=== PATIENT | female | born 1945 | race Caucasian/White ===

== ENCOUNTER → 2017-04-11 09:50 | Outpatient (CLI) | payer MEDICARE, OTHER, SELFPAY ==
[2017-04-12 16:31] LABS: Bacteria 0 SEEN /hpf (None Seen); Mucous, Urine 0 SEEN /hpf (<or=2+); Red Blood Cells-Urine 0 SEEN /hpf (0-5)
[2017-04-12 16:45] LABS: Color, Urine Yellow (Yellow); Glucose, Dipstick Normal (Normal); Ketone-Dipstick Negative (Negative); Leukocyte Esterase-Dipstick 500 /ul (Negative); Nitrite-Dipstick Positive (Negative); Occult Blood-Urine 10 /ul (Negative); Protein-Dipstick Negative (Negative); Specific Gravity, Urine 1.005 (1.002-1.030); Urine Bilirubin Dipstick Negative (Negative); Urine Clarity Clear (Clear); Urine Urobilinogen Normal (Normal)
[2017-04-12 17:03] LABS: Squamous Epithelial Cells - UA 0-5 SEEN /hpf (5-10); White Blood Cells 10-25 SEEN /hpf (0-5)
== END ==
PROVIDERS: Family Provider Family Medicine; PCP Family Medicine; Visit Provider Physician Assistant
DX: N39.0 Urinary tract infection, site not specified (principal); R30.0 Dysuria
CPT/HCPCS: 81001; 87086; 87088; 87186

== ENCOUNTER → 2018-04-19 06:17 | Outpatient (CLI) | payer MEDICARE, OTHER, SELFPAY ==
--- NOTE | 2018-04-19 09:42 | STRESSREP_ITS ---
Stress Test Report Date: 04-19-18 Procedure: Exercise tolerance test/imaging study Indications: chest pain; shortness of breath/dyspnea Consent: Per the patient Procedure: The patient exercised on a Cristóbal protocol for 6 minutes completing Stage II achieving a peak heart rate of 150 bpm (100 % predicted maximal heart rate) with a peak blood pressure 152/68 mmHg and a peak MET capacity of 7 METs. The baseline ECG demonstrated normal sinus rhythm . The peak exercise ECG demonstrated somatic/motion artifact with no obvious ECG changes . There were occasional PACs and PVCs during exercise . The functional capacity was considered average . There was no complaint of chest discomfort during exercise or recovery. The examination was discontinued secondary to dyspnea . Impression: 1. Technically adequate (percent predicted maximal heart rate greater than 85%) exercise tolerance test 2. Peak exercise ECG demonstrated somatic/motion artifact with no obvious ECG changes 3. There were occasional PACs and PVCs during exercise 4. Nuclear images pending Myocardial perfusion imaging study: Technique: The patient was injected with 10 mCi of technetium 99m Cardiolite and subsequently rest SPECT Cardiolite nuclear imaging was obtained in the horizontal long, vertical long, and short axis views. The patient exercised on a Rcistóbal protocol for 6 minutes completing Stage II achieving a peak heart rate of 150 bpm (100 % predicted maximal heart rate) with a peak blood pressure 152/68 mmHg and a peak MET capacity of 7 METs. The patient was injected with 30 mCi of technetium 99m Cardiolite and subsequently stress SPECT Cardiolite nuclear imaging was obtained in the horizontal long, vertical long, and short axis views. A gated Cardiolite study at peak stress was obtained. Interpretation: Rest and stress SPECT Cardiolite nuclear imaging status post realignment, normalization, and attenuation correction, demonstrates the appearance of relative uniform tracer uptake and myocardial perfusion appearing within normal limits. There is end systolic thickening and brightening. The gated Cardiolite study demonstrates myocardial thickening and inward wall motion. The reported LVEF is 79 %. Impression: 1. Rest and stress SPECT Cardiolite nuclear imaging demonstrate relative uniform tracer uptake and myocardial perfusion appearing within normal limits. 2. The gated Cardiolite study reports an LVEF of 79 %. This note was generated with [employer] software. It may contain incorrect words, spelling, and punctuation that were not noted in checking the note before signing.
== END ==
PROVIDERS: Family Provider Family Medicine; PCP Family Medicine; Referring Provider Family Medicine; Visit Provider Family Medicine
DX: R07.89 Other chest pain (principal)
CPT/HCPCS: 78452; 93017; A9500; A4216

== ENCOUNTER → 2018-04-22 12:41 | Outpatient (CLI) | payer MEDICARE, OTHER, SELFPAY ==
--- NOTE | 2018-04-22 12:44 | ECHOD_ITS ---
Reason For Study: Amaurosis fugax Procedure This was a 2D Doppler, Color Flow transthoracic echocardiogram. Myocardial strain analysis was performed in this exam to aid in the assessment of cardiac function. Exam performed in department. Left Ventricle Normal size and thickness. The estimated ejection fraction is 65 %. Stage 1 diastolic dysfunction. No regional wall motion abnormalities noted. Right Ventricle Normal size and thickness. Normal systolic function. Atria Normal left atrium. Normal right atrium. Normal atrial septum. Bubble contrast study negative for right to left interatrial shunt. Mitral Valve Mild diffuse mitral valve thickening. Mild (1+) posteriorly directed mitral valve insufficiency. Tricuspid Valve Normal tricuspid valve. Trivial tricuspid valve insufficiency. Unable to estimate RV systolic pressure/pulmonary artery pressure due to technically difficult study. Aortic Valve Trisinus/trileaflet aortic valve. Mild diffuse aortic valve thickening. Trivial aortic valve insufficiency. Pulmonic Valve Normal pulmonic valve. Trivial pulmonic valve insufficiency. Great Vessels Normal aortic root. Normal arch. Normal inferior vena cava. Inferior vena cava collapse with sniff. Pericardium/Pleural Trivial pericardial effusion. Circumferential effusion. There are no echocardiographic indications of cardiac tamponade. Medication 22 gauge I.V. with prn adaptor inserted into right arm. Performed a rapid injection of agitated mix of 9 cc saline and 1cc air to assess for atrial septal defect. MMode/2D Measurements & Calculations LVIDd: 4.1 cm IVSd: 0.95 cm Ao root diam: 3.0 cm LVIDs: 2.5 cm LVPWd: 0.94 cm RVDd: 2.3 cm FS: 39.7 % LAV(MOD-bp): 44.0 ml EDV(MOD-sp4): 63.2 ml EDV(MOD-sp2): 61.2 ml LAV(MOD-bp) Indexed: 26.3 ml/m2 ESV(MOD-sp4): 18.1 ml EF(MOD-sp2): 68.9 % LAV(MOD-sp2): 50.0 ml EF(MOD-sp4): 71.3 % LAV(MOD-sp4): 34.6 ml SV(MOD-sp4): 45.1 ml SV(MOD-sp2): 42.2 ml LA A4 area: 14.4 cm2 LA dimension(2D): 3.0 cm RA A4 area: 11.5 cm2 Doppler Measurements & Calculations MV E max eulalio: 54.4 cm/sec Lat Peak E' Eulalio: 5.0 cm/sec Med Peak E' Eulalio: 4.1 cm/sec MV A max eulalio: 61.2 cm/sec E/E' lat: 10.8 E/E' med: 13.4 MV E/A: 0.89 Ao V2 max: 124.9 cm/sec AI max eulalio: 386.7 cm/sec LV V1 max: 118.5 cm/sec Ao max P.2 mmHg AI max P.8 mmHg LV V1 max P.6 mmHg AI dec slope: 250.7 cm/sec2 AI P1/2t: 451.8 msec PA V2 max: 70.6 cm/sec Interpretation Summary The estimated ejection fraction is 65 %. Stage 1 diastolic dysfunction. Bubble contrast study negative for right to left interatrial shunt. Mild (1+) posteriorly directed mitral valve insufficiency. Trivial tricuspid valve insufficiency. Unable to estimate RV systolic pressure/pulmonary artery pressure due to technically difficult study. Trivial aortic valve insufficiency. Trivial to small circumferential pericardial effusion. There are no echocardiographic indications of cardiac tamponade. D/w Dr Kyle on 04/22/2018 at 1425. Recommend clinical correlation and repeat echo in 1 month. There is no comparison study available. Ordering Physician: Ander Kyle Referring Physician: Ander Kyle Performed By: Miranda Bob RDCS
--- NOTE | 2018-04-22 13:54 | CDU_ITS ---
Reason For Study: Amaurosis fugax Rt. Velocities/BP Lt. Velocities/BP Prox CCA 72.1/21.7 cm/sec. Prox CCA 85.0/27.6 cm/sec. Mid CCA 73.9/22.3 cm/sec. Mid CCA 77.4/25.8 cm/sec. Dist CCA 57.5/15.2 cm/sec. Dist CCA 74.5/22.3 cm/sec. Prox ICA 57.5/18.8 cm/sec. Prox ICA 49.7/15.9 cm/sec. Mid ICA 70.4/28.1 cm/sec. Mid ICA 78.5/28.3 cm/sec. Dist ICA 79.2/28.1 cm/sec. Dist ICA 48.5/17.0 cm/sec. Rt. ICA/CCA = 1.1. Lt. ICA/CCA = 1.0. Prox ECA 75.0/15.8 cm/sec. Prox ECA 74.5/22.3 cm/sec. Rt. Vert. 28.3/10.2 cm/sec. Lt. Vert. 39.7/11.0 cm/sec. Right Extracranial There is intimal thickening but no significant atherosclerotic plaque noted in the right common carotid artery. There is intimal thickening but no significant atherosclerotic plaque noted in the right internal carotid artery. There is no significant atherosclerotic plaque noted in the right external carotid artery. Antegrade flow is noted in the right vertebral artery. Left Extracranial There is intimal thickening but no significant atherosclerotic plaque noted in the left common carotid artery. There is intimal thickening but no significant atherosclerotic plaque noted in the left internal carotid artery. There is no significant atherosclerotic plaque noted in the left external carotid artery. Antegrade flow is noted in the left vertebral artery. Procedure Carotid Duplex [id number]. Exam performed in department. Interpretation Summary No significant atherosclerotic plaque or stenosis noted in the internal carotid arteries bilaterally. Flow within the vertebral arteries is antegrade bilaterally. Ordering Physician: Ander Kyle Referring Physician: Nori Hope M.D. Performed By: Dinah Kidd RVT
== END ==
PROVIDERS: Family Provider Family Medicine; PCP Family Medicine; Referring Provider Ophthalmology; Visit Provider Ophthalmology
DX: G45.3 Amaurosis fugax (principal)
CPT/HCPCS: 93306; 93880; A4216

== ENCOUNTER → 2018-04-23 08:57 | Outpatient (CLI) | payer MEDICARE, OTHER, SELFPAY ==
[2017-04-11 09:03] VITALS: BMI 27.6
[2018-04-23 09:46] LABS: Absolute Lymphocyte Count 1.34 X10^3/ul (0.83-4.51); Absolute Neutrophil Count 4.4 X10^3/uL (2.0-7.7); Basophil# 0.04 X10^3/uL; Basophil% 0.6 % (0-1); Eosinophil# 0.19 X10^3/uL; Eosinophils% 2.9 % (0-5); Hematocrit 45.3 % (37-47); Hemoglobin 14.4 g/dl (12.0-15.0); Lymphocyte # 1.34 X10^3/ul (4.0); Lymphocyte % 20.8 % (19-41); Mean Corp Hgb Conc 31.8 g/gl (32-36); Mean Corpuscular Hgb 29.4 pg (27.0-32.0); Mean Corpuscular Volume 92.4 fL (81-99); Mean Platelet Vol. 10.4 fl (6.2-12.0); Monocyte# 0.48 X10^3/uL; Monocyte% 7.4 % (0-10); Neutrophil % 68.3 % (47-70); Platelet Count 236 K/mm3 (150-450); RBC Distribution Width CV 13.7 % (11.6-14.6); RBC Distribution Width SD 46.4 fl (35.1-43.9); White Blood Count 6.5 K/mm3 (4.4-11.0)
[2018-04-23 09:55] LABS: POSITIVE COUNT NO; POSITIVE DIFFERENTIAL NO; POSITIVE MORPHOLOGY NO
[2018-04-23 10:05] LABS: ALB/GLOB Ratio 1.3 RATIO (0.9-2.4); AST(SGOT) 21 U/L (15-37); Alanine Aminotransfer ALT/SGPT 21 U/L (13-56); Alkaline Phosphatase 78 U/L (45-117); Anion Gap 6 (5-15); BUN 12 mg/dL (7-18); BUN/Creat Ratio 14.2 RATIO (10-20); Calcium,Total 8.4 mg/dL (8.5-10.1); Chloride 110 mmol/L (98-107); Cholesterol 216 mg/dL (200); Creatinine, Serum 0.85 mg/dL (0.55-1.02); EST Glomerular Filtration Rate 70 mL/min (>60); Est Glom Filt Rate - Afr Amer 85 mL/min (>60); Glucose 90 mg/dL (74-106); High Density Lipoprotein 67 mg/dL; Potassium 4.2 mmol/L (3.5-5.1); Sodium Level 142 mmol/L (136-145); Thyroid Stim Hormone (TSH) 2.48 uIU/mL (0.358-3.74); Triglycerides 74 mg/dL; Very Low Density Lipoprotein 15 mg/dL (5-40)
== END ==
PROVIDERS: Family Provider Family Medicine; PCP Family Medicine; Referring Provider Family Medicine; Visit Provider Family Medicine
DX: R07.89 Other chest pain (principal)
CPT/HCPCS: 36415; 80053; 80061; 84443; 85025

== ENCOUNTER 2018-05-05 06:47 | Day surgery (SDC) | payer MEDICARE, OTHER, SELFPAY ==
[2018-05-03 13:14] VITALS: BMI 30.7
--- NOTE | 2018-05-03 14:40 | RAD_ITS ---
STUDY: X-RAY CHEST REASON FOR EXAM: Female, 73 years old. Chest pain TECHNIQUE: PA and lateral views of the chest. COMPARISON: None. FINDINGS: Lungs are underexpanded. There is a blunted appearance of the right cardio phrenic angle. Is mild cardiac enlargement. Normal mediastinum and sameer. Normal visualized pulmonary arteries. Normal visualized aortic arch and descending thoracic aorta. Normal visualized thoracic spine. Normal visualized ribs, clavicles, and shoulders. There is no demonstrated abnormality of the visualized soft tissue structures of the upper abdomen. RAD/Chest PA and Lateral IMPRESSION: Blunted partially opacified right cardiophrenic angle. This may represent focal infiltrate and/or prominent cardiac fat pad. Comparison is not available at this time. Recommend clarification with CT scan of the chest if appropriate. Electronically Signed: Yumi Jhaveri MD at 15:28 EDT Tel , Service support ,
[2018-05-03 15:58] LABS: Erythrocyte Sedimentation Rate 3 mm/hr (0-30)
[2018-05-04 09:13] VITALS: BMI 30.7
--- NOTE | 2018-05-05 09:19 | CL.D_ITS ---
Patient Name: HAYDER PETERS Study Date: 05/05/2018 Performing: Parker Man MD Ht: 59.84 inches 152 cm : 1945 Wt: 156.53 lbs 71 kg Age: 73 Gender: female BSA: 1.68 PROCEDURE(S) PERFORMED VP68-LQJ/COR/LV CLINICAL PROFILE AND INDICATIONS Indications: Suspected CAD Heart Failure: None Stress/Imaging Stress Test w/SPECT MPI: Yes Result: NegativeStress Test with SPECT MPI: Negative Angina Classification Anginal Classification w/in 2 Weeks: CCS IV CAD Presentations: Symptom unlikely to be ischemic. CONCLUSIONS Normal coronary arteries Normal LV size, wall motion,and systolic function Elevated Left Ventricular End Diastolic Pressure RECOMMENDATIONS d/c asa, continue PPI and Cardizem. Medical management of trivial pericardial effusion; consider prednisone if atypical recumbent chest p ain returns despite PPI and CCB. Manual sheath removal. DESCRIPTION OF PROCEDURE The patient arrived to the procedure lab. The risks and benefits of the procedure as well as a full d escription of our services here and current unavailability of surgical backup were fully explained to the patient and/or their significant other prior to the catheterization. The Timeout was completed, verifying the correct patient and procedure. The patient's procedural site was prepped and draped in the usual fashion. Local anesthetic was given subcutaneously to right groin region with Lidocaine 2%. Using a modified Seldinger technique, arterial access was obtained via the right femoral artery, a 4 Fr sheath was inserted Left Coronary Artery selective angiography was performed in multiple views us ing a 4 Fr. JL5 catheter. Right Coronary Artery selective angiography was then performed in multiple views using a 4 Fr. 3DRC catheter. Left Ventriculography was performed in ODONNELL projection using a 4 Fr . Pigtail catheter. LV to AO pullback pressures were then recorded.The arterial sheath was pulled and manual compression applied until hemostasis is achieved. CORONARY ANGIOGRAPHY DOMINANCE: Right Dominant LEFT HEART ASSESSMENT Left Ventricular Ejection Fraction: by LV Gram 65 % Normal LV wall motion Normal Left Ventricular systolic function Normal Left Ventricular systolic function LEFT MAIN: Angiographically normal LEFT ANTERIOR DECENDING ARTERY: Angiographically normal CIRCUMFLEX ARTERY: Angiographically normal RIGHT CORONARY ARTERY: Angiographically normal COMPLICATIONS No Complications PROCEDURE MEDICATIONS Oxygen: 2 L/min via nasal cannula SUMMARY OF HEMODYNAMIC DATA Time AIR REST ECG 07:18:56 AO 137/65 (97) SA 09:02:35 LV 140/-2, 19 09:07:32 LV 154/-15, 22 09:07:38 LVp 162/-13, 26 09:07:43 AOp 141/70 (104) 09:07:48 Signed By Parker Man MD On 05/05/2018 9:17:51 AM Parker Man MD
== END 2018-05-05 13:25 | disposition home or self-care (01) ==
LOC: CLSP 06:48
PROVIDERS: Family Provider Family Medicine; PCP Family Medicine; Referring Provider Internal Medicine Cardiovascular Disease; Visit Provider Internal Medicine Cardiovascular Disease
DX: R07.9 Chest pain, unspecified (principal); I34.0 Nonrheumatic mitral (valve) insufficiency; I31.3 Pericardial effusion (noninflammatory); R32 Unspecified urinary incontinence; K21.9 Gastro-esophageal reflux disease without esophagitis; Z79.82 Long term (current) use of aspirin; Z79.899 Other long term (current) drug therapy
CPT/HCPCS: 36415; 71046; 85652; 93458; J7040; C1769; C1894; Q9967

== ENCOUNTER → 2018-05-12 08:45 | Outpatient (CLI) | payer MEDICARE, OTHER, SELFPAY ==
[2018-05-04 09:13] VITALS: BMI 30.7
[2018-05-12 10:04] LABS: AST(SGOT) 17 U/L (15-37); Alanine Aminotransfer ALT/SGPT 19 U/L (13-56); Albumin, Serum 3.6 g/dL (3.2-5.0); Alkaline Phosphatase 74 U/L (45-117); Bilirubin, Direct 0.13 mg/dL (0.00-0.30); Cholesterol 195 mg/dL (200); Globulin 2.8 g/dL (2.2-4.2); High Density Lipoprotein 60 mg/dL; Protein, Total 6.4 g/dL (6.4-8.2); Triglycerides 87 mg/dL; Very Low Density Lipoprotein 17 mg/dL (5-40)
== END ==
PROVIDERS: Family Provider Family Medicine; PCP Family Medicine; Referring Provider Internal Medicine Cardiovascular Disease; Visit Provider Internal Medicine Cardiovascular Disease
DX: Z13.220 Encounter for screening for lipoid disorders (principal)
CPT/HCPCS: 36415; 80061; 80076

== ENCOUNTER → 2018-05-25 17:42 | Outpatient (CLI) | payer MEDICARE, OTHER, SELFPAY ==
[2018-05-03 13:14] VITALS: BMI 30.7
[2018-05-04 09:13] VITALS: BMI 30.7
--- NOTE | 2018-05-25 17:44 | MRI_ITS ---
HISTORY: visual disturbances, family h/o brain aneurysm with rupture. New angio disease EXAMINATION: MRA Head W/O Contrast TECHNIQUE: Routine algaaciq of Granado/brain 3D time of flight MR angiogram protocol was performed without gadolinium. 3D reconstructions were reviewed. IV Contrast dosage and agent: None. COMPARISON: None FINDINGS: ICAs: No significant stenosis at the intracranial/visualized segments. ACAs: No significant stenosis at the visualized segments. ACOM is present. Anatomic variant dominant left and hypoplastic right A1 segments. MCAs: No significant stenosis at the visualized segments. 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 On the left, the P1 segment provides dominant supply. No significant stenosis at the visualized segments. BASILAR ARTERY: No significant stenosis. VERTEBRAL ARTERIES: No significant stenosis at the intradural/visualized segments. No evidence of intracranial aneurysm or vascular malformation. MRI/MRA Head ONLY without Contrast IMPRESSION: No aneurysm or concerning findings. Incidental anatomic variations described above. at 2211 Reported and signed by: Zeus Carter MD Electronically Signed: Zeus Carter, at 22:10 EDT Tel , Service support ,
== END ==
PROVIDERS: Family Provider Family Medicine; PCP Family Medicine; Referring Provider Internal Medicine Cardiovascular Disease; Visit Provider Internal Medicine Cardiovascular Disease
DX: H53.121 Transient visual loss, right eye (principal); I31.3 Pericardial effusion (noninflammatory); I34.0 Nonrheumatic mitral (valve) insufficiency; R93.1 Abnormal findings on diagnostic imaging of heart and coronary circulation
CPT/HCPCS: 70544

== ENCOUNTER → 2018-06-03 14:51 | Outpatient (CLI) | payer MEDICARE, OTHER, SELFPAY ==
[2018-05-04 09:13] VITALS: BMI 30.7
--- NOTE | 2018-06-03 14:53 | BI_ITS ---
MAMMOGRAPHY - BILATERAL SCREENING 3-D TOMOSYNTHESIS REASON FOR EXAM: Female, 73 years old. Bilateral Screening 3-D tomosynthesis PERTINENT HISTORY: No significant family history. TECHNIQUE: 2-D mammograms and 3-D Tomosynthesis of the breast (s) were performed. CAD was performed. COMPARISON: January 28, 2017. FINDINGS: The breast composition is composed of scattered fibroglandular density. Scattered benign calcifications are seen. No dense spiculated masses or suspicious microcalcifications are identified. No architectural distortion is identified. There is no skin thickening or retraction. There has been no significant change since the prior study. BI/SCREENING MAMM (CAD), BILAT IMPRESSION: No mammographic signs of malignancy. Routine yearly mammograms recommended. ASSESSMENT CATEGORY: BIRADS Category 1: Negative. A letter regarding these results will be sent to the patient by the facility within 30 days. FOLLOW UP RECOMMENDATION: Yearly follow up mammogram recommended. (A) Approximately 10% of breast cancers are not detected by mammography. A normal mammogram should not delay biopsy of a clinically suspicious abnormality. Electronically Signed: Gilberto Scales MD at 10:43 EDT , Service support ,
== END ==
PROVIDERS: Family Provider Family Medicine; PCP Family Medicine; Referring Provider Family Medicine; Visit Provider Family Medicine
DX: Z12.31 Encounter for screening mammogram for malignant neoplasm of breast (principal)
CPT/HCPCS: 77063; 77067

== ENCOUNTER → 2018-09-05 17:08 | Outpatient (CLI) | payer MEDICARE, OTHER, SELFPAY ==
[2018-05-04 09:13] VITALS: BMI 30.7
[2018-09-05 17:23] LABS: Hematocrit 38.9 % (37-47); Hemoglobin 12.8 g/dL (12.0-15.0); Mean Corp Hgb Conc 32.9 g/dL (32-36); Mean Corpuscular Hgb 30.7 pg (27.0-32.0); Mean Corpuscular Volume 93.3 fL (81-99); Mean Platelet Vol. 9.6 fl (6.2-12.0); Platelet Count 197 K/mm3 (150-450); RBC Distribution Width CV 12.8 % (11.6-14.6); Red Blood Count 4.17 M/mm3 (4.2-5.4); White Blood Count 7.2 K/mm3 (4.4-11.0)
[2018-09-05 17:32] LABS: Erythrocyte Sedimentation Rate 4 mm/hr (0-30)
[2018-09-05 18:20] LABS: CRP < 2.90 mg/L (0.0-3.0)
== END ==
PROVIDERS: Family Provider Family Medicine; PCP Family Medicine; Referring Provider Ophthalmology; Visit Provider Ophthalmology
DX: R51 Headache (principal)
CPT/HCPCS: 36415; 85027; 85652; 86140

== ENCOUNTER → 2018-11-11 14:33 | Outpatient (CLI) | payer MEDICARE, OTHER, SELFPAY ==
[2018-05-04 09:13] VITALS: BMI 30.7
[2018-11-11 15:25] LABS: Absolute Lymphocyte Count 1.66 X10^3/uL (0.83-4.51); Absolute Neutrophil Count 4.8 X10^3/uL (2.0-7.7); Basophil# 0.07 X10^3/uL; Eosinophils% 2.8 % (0-5); Hematocrit 40.3 % (37-47); Hemoglobin 12.9 g/dL (12.0-15.0); Lymphocyte # 1.66 X10^3/ul (4.0); Lymphocyte % 23.1 % (19-41); Mean Corpuscular Hgb 29.5 pg (27.0-32.0); Mean Platelet Vol. 10.3 fl (6.2-12.0); Monocyte# 0.46 X10^3/uL; Monocyte% 6.4 % (0-10); NRBC Flagged by Analyzer 0 % (0-5); Neutrophil % 66.6 % (47-70); Platelet Count 198 K/mm3 (150-450); RBC Distribution Width SD 44.1 fl (35.1-43.9); Red Blood Count 4.38 M/mm3 (4.2-5.4); White Blood Count 7.2 K/mm3 (4.4-11.0)
[2018-11-11 15:59] LABS: Erythrocyte Sedimentation Rate 9 mm/hr (0-30)
[2018-11-11 16:09] LABS: CRP < 2.90 mg/L (0.0-3.0)
== END ==
PROVIDERS: Family Provider Family Medicine; PCP Family Medicine; Referring Provider Ophthalmology; Visit Provider Ophthalmology
DX: R51 Headache (principal)
CPT/HCPCS: 36415; 85025; 85652; 86140

== ENCOUNTER → 2018-12-08 13:20 | Outpatient (CLI) | payer MEDICARE, OTHER, SELFPAY ==
[2018-11-28 15:41] VITALS: BMI 31.4
--- NOTE | 2018-12-08 13:20 | TEM_PTH ---
PATIENT: HAYDER PETERS LOC: [facility] U#:[id number] AGE/SX: 79/F ROOM: RE12/08/[address]: Dr. Ander Kyle MD : 1945 BED: DIS: SPEC #: [id number] RECD: 12/08/18 17:43 STATUS: BRIDGER RERitchie #: [id number] ELSY: 12/08/18 13:[address]: Ander Kyle DEPT: SURGICAL PATHOLOGY RECD BY: Des Mayes ENTERED: 12/09/18 08:27 SP TYPE: TEMPORAL OTHR DR: Dr. 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 No evidence of arteritis. See comment. AM:yarelis 12/12/18 COMMENT Elastin stain with matched control supports the above diagnosis. MICROSCOPIC DESCRIPTION Slides are reviewed. GROSS DESCRIPTION Received in fixative is one container labeled with the patient's name and designated temporal artery biopsy, right. The specimen consists of a tubular piece of bautista soft tissue measuring 2 cm in length and 0.1 cm in diameter. The entire specimen is submitted in one cassette. It will be serially sectioned at the time of embedding. / SJ:yarelis 12/09/18 TC:5 CPT: 22379, 87312
== END ==
PROVIDERS: Family Provider Family Medicine; PCP Family Medicine; Referring Provider Ophthalmology; Visit Provider Ophthalmology
DX: R51 Headache (principal)
CPT/HCPCS: 88305; 88313

== ENCOUNTER → 2018-12-19 14:58 | Outpatient (CLI) | payer MEDICARE, OTHER, SELFPAY ==
[2018-11-28 15:41] VITALS: BMI 31.4
--- NOTE | 2018-12-19 14:59 | ECHOD_ITS ---
Reason For Study: CHEST PAIN Procedure This was a 2D Doppler, Color Flow transthoracic echocardiogram. Exam performed in department. Left Ventricle Normal size and thickness. The estimated ejection fraction is 65 %. Stage 2 diastolic dysfunction. Septal motion consistent with IVCD. No regional wall motion abnormalities noted. Right Ventricle Normal size and thickness. Normal systolic function. Atria Normal left atrium. Normal right atrium. Normal atrial septum. Mitral Valve Mild diffuse mitral valve thickening. Mild (1+) posteriorly directed mitral valve insufficiency. Tricuspid Valve Normal tricuspid valve. Mild (1+) tricuspid valve insufficiency. Right ventricular systolic pressure estimated to be 30 mmHg. Aortic Valve Trisinus/trileaflet aortic valve. Mild diffuse aortic valve thickening. Mild (1+) aortic valve insufficiency. Pulmonic Valve Normal pulmonic valve. Great Vessels Normal aortic root. Normal arch. Normal inferior vena cava. Inferior vena cava collapse with sniff. Pericardium/Pleural Trivial pericardial effusion. There are no echocardiographic indications of cardiac tamponade. Circumferential effusion. MMode/2D Measurements & Calculations LVIDd: 4.4 cm IVSd: 0.85 cm Ao root diam: 3.0 cm LVIDs: 2.7 cm LVPWd: 0.80 cm RVDd: 2.5 cm FS: 39.1 % LAV(MOD-bp): 47.9 ml LA A4 area: 18.1 cm2 LA dimension(2D): 3.9 cm LAV(MOD-bp) Indexed: 28.6 ml/m2 LAV(MOD-sp2): 47.0 ml LAV(MOD-sp4): 47.7 ml RA A4 area: 10.5 cm2 Time Measurements MV dec time: 0.23 sec Doppler Measurements & Calculations MV E max eulalio: 64.1 cm/sec Lat Peak E' Eulalio: 7.8 cm/sec Med Peak E' Eulalio: 4.8 cm/sec MV A max eulalio: 51.8 cm/sec E/E' lat: 8.2 E/E' med: 13.4 MV E/A: 1.2 Ao V2 max: 123.8 cm/sec AI max eulalio: 408.2 cm/sec LV V1 max: 113.3 cm/sec Ao max P.1 mmHg AI max P.8 mmHg LV V1 max P.1 mmHg AI dec slope: 251.6 cm/sec2 AI P1/2t: 475.1 msec PA V2 max: 67.7 cm/sec PI end-d eulalio: 88.6 cm/sec TR max eulalio: 247.9 cm/sec TR max P.4 mmHg Interpretation Summary The estimated ejection fraction is 65 %. Stage 2 diastolic dysfunction. Mild (1+) posteriorly directed mitral valve insufficiency. Mild (1+) tricuspid valve insufficiency. Right ventricular systolic pressure estimated to be 30 mmHg. Mild (1+) aortic valve insufficiency. Trivial to small pericardial effusion. There are no echocardiographic indications of cardiac tamponade. Circumferential effusion. Compared to echo report dated 05/02/2018, no appreciable changes noted in LV function or pericardial effusion. Ordering Physician: Parker Man Referring Physician: KAYA BOYD Performed By: Isabel Gomez RDCS, RVT
== END ==
PROVIDERS: Family Provider Family Medicine; PCP Family Medicine; Referring Provider Internal Medicine Cardiovascular Disease; Visit Provider Internal Medicine Cardiovascular Disease
DX: R07.9 Chest pain, unspecified (principal); I31.3 Pericardial effusion (noninflammatory); H53.121 Transient visual loss, right eye
CPT/HCPCS: 93306

== ENCOUNTER → 2019-06-14 15:38 | Outpatient (CLI) | payer MEDICARE, OTHER, SELFPAY ==
[2019-06-12 11:23] VITALS: BMI 31.2
[2019-06-14 17:49] LABS: Erythrocyte Sedimentation Rate 8 mm/hr (0-30)
[2019-06-14 18:53] LABS: Anion Gap 6 (5-15); BUN 9 mg/dL (7-18); BUN/Creat Ratio 10.7 RATIO (10-20); CRP < 2.90 mg/L (0.0-3.0); Chloride 110 mmol/L (98-107); Cholesterol 225 mg/dL (200); Creatinine, Serum 0.84 mg/dL (0.55-1.02); EST Glomerular Filtration Rate 70 mL/min (>60); Est Glom Filt Rate - Afr Amer 85 mL/min (>60); Glucose 86 mg/dL (74-106); High Density Lipoprotein 58 mg/dL; Sodium Level 141 mmol/L (136-145); Triglycerides 154 mg/dL; Very Low Density Lipoprotein 31 mg/dL (5-40)
== END ==
PROVIDERS: PCP Family Medicine; Referring Provider Family Medicine; Visit Provider Family Medicine
DX: Z00.00 Encounter for general adult medical examination without abnormal findings (principal); I31.3 Pericardial effusion (noninflammatory)
CPT/HCPCS: 36415; 80048; 80061; 84443; 85652; 86140

== ENCOUNTER → 2019-06-16 11:23 | Outpatient (CLI) | payer MEDICARE, OTHER, SELFPAY ==
[2019-06-12 11:23] VITALS: BMI 31.2
--- NOTE | 2019-06-16 11:27 | BI_ITS ---
MAMMOGRAPHY - BILATERAL SCREENING REASON FOR EXAM: Female, 74 years old. Routine annual screening examination. PERTINENT HISTORY: Non-contributory. TECHNIQUE: Digital bilateral breast zhane (3D mammographic acquisition) in the CC and MLO projections. 2-D mediolateral oblique (MLO) and craniocaudad (CC) views of both breasts were obtained. CAD: Full Field Digital Mammography with Computer Added Detection was performed. COMPARISON: Comparison is made with prior examination dated June 03, 2018 and January 28, 2017. FINDINGS: Breast Composition: There are scattered areas of fibroglandular density. There are no dominant masses or suspicious calcifications. Stable benign-appearing bilateral axillary lymph nodes. No other significant abnormalities are identified. There has been no significant change since the prior study. BI/SCREEN MAMM (CAD) W/ZHANE BILAT IMPRESSION: Stable bilateral screening mammogram. Yearly follow-up mammogram recommended. (A) ASSESSMENT CATEGORY: BIRADS Category 1: Negative. A letter regarding these results will be sent to the patient by the facility within 30 days. Approximately 10% of breast cancers are not detected by mammography. A normal mammogram should not delay biopsy of a clinically suspicious abnormality. [id number] Electronically Signed: Carlos Torres, at 12:47 EDT , Service support ,
== END ==
PROVIDERS: PCP Family Medicine; Referring Provider Family Medicine; Visit Provider Family Medicine
DX: Z12.31 Encounter for screening mammogram for malignant neoplasm of breast (principal)
CPT/HCPCS: 77063; 77067

== ENCOUNTER → 2019-06-30 10:50 | Outpatient (CLI) | payer MEDICARE, OTHER, SELFPAY ==
[2019-06-12 11:23] VITALS: BMI 31.2
--- NOTE | 2019-06-30 10:53 | ECHOD_ITS ---
Reason For Study: H/O PERICARDIAL EFFUSION Procedure This was a 2D Doppler, Color Flow transthoracic echocardiogram. Exam performed in department. Left Ventricle Normal size and thickness. The estimated ejection fraction is 65 %. Stage 1 diastolic dysfunction. Septal motion consistent with IVCD. No regional wall motion abnormalities noted. Right Ventricle Normal size and thickness. Normal systolic function. Atria Normal left atrium. Normal right atrium. Normal atrial septum. Mitral Valve The mitral valve is structurally normal. No prolapse or stenosis seen. Trivial mitral valve insufficiency. Tricuspid Valve Normal tricuspid valve. Unable to estimate RV systolic pressure due to insufficient tricuspid regurgitant envelope. Aortic Valve Trisinus/trileaflet aortic valve. Trivial aortic valve insufficiency. Pulmonic Valve Normal pulmonic valve. Great Vessels Normal aortic root. Normal arch. Normal inferior vena cava. Inferior vena cava collapse with sniff. Pericardium/Pleural Trivial pericardial effusion. Circumferential effusion. There are no echocardiographic indications of cardiac tamponade. MMode/2D Measurements & Calculations LVIDd: 4.4 cm IVSd: 0.83 cm Ao root diam: 3.0 cm LVIDs: 3.0 cm LVPWd: 0.90 cm RVDd: 2.4 cm FS: 31.4 % LAV(MOD-bp): 40.2 ml LA A4 area: 13.4 cm2 LA dimension(2D): 3.0 cm LAV(MOD-bp) Indexed: 23.7 ml/m2 LAV(MOD-sp2): 41.6 ml LAV(MOD-sp4): 32.8 ml RA A4 area: 10.6 cm2 Time Measurements MV dec time: 0.18 sec Doppler Measurements & Calculations MV E max eulalio: 50.4 cm/sec Lat Peak E' Eulalio: 6.7 cm/sec Med Peak E' Eulalio: 5.9 cm/sec MV A max eulalio: 49.1 cm/sec E/E' lat: 7.5 E/E' med: 8.5 MV E/A: 1.0 Ao V2 max: 100.6 cm/sec AI max eulalio: 331.2 cm/sec LV V1 max: 93.2 cm/sec Ao max P.0 mmHg AI max P.9 mmHg LV V1 max P.5 mmHg Ao V2 mean: 75.7 cm/sec AI dec slope: 142.6 cm/sec2 LV V1 mean P.7 mmHg Ao mean P.4 mmHg AI P1/2t: 680.2 msec LV V1 mean: 62.0 cm/sec Ao V2 VTI: 24.4 cm LV V1 VTI: 20.7 cm Interpretation Summary The estimated ejection fraction is 65 %. Stage 1 diastolic dysfunction. Trivial mitral valve insufficiency. Unable to estimate RV systolic pressure due to insufficient tricuspid regurgitant envelope. Trivial aortic valve insufficiency. Trivial pericardial effusion. Circumferential effusion. There are no echocardiographic indications of cardiac tamponade. Compared to echo report dated 12/19/2018, no appreciable changes noted. Ordering Physician: Donovan^Parker^^^ Referring Physician: Nori Hope Performed By: Elis Boone RDCS, RVT
== END ==
PROVIDERS: PCP Family Medicine; Referring Provider Internal Medicine Cardiovascular Disease; Visit Provider Internal Medicine Cardiovascular Disease
DX: I31.3 Pericardial effusion (noninflammatory) (principal); Z98.890 Other specified postprocedural states
CPT/HCPCS: 93306

== ENCOUNTER 2019-09-24 09:56 | Emergency (ER) | payer MEDICARE, OTHER, SELFPAY ==
[2019-06-12 11:23] VITALS: BMI 31.2
[2019-09-24 09:58] VITALS: BP 142/70; PULSE 78; RESP 17; TEMP 36.4; O2SAT 96; BMI 31.4
--- NOTE | 2019-09-24 10:13 | RAD_ITS ---
STUDY: X-RAY - LUMBAR SPINE REASON FOR EXAM: Female, 74 years old. pt fell last night, has chronic back pain TECHNIQUE: 3 view(s) of the lumbar spine were obtained. COMPARISON: None FINDINGS: Normal lumbar lordosis. There is a dextroscoliosis of the lumbar spine. There is a normal alignment of the vertebrae. There is multilevel endplate spondylosis of the lumbar vertebrae. There is multi-level degenerative disc disease with multi-level disc space narrowing. The soft tissue structures are unremarkable. RAD/Lumbar Spine 2 or 3 Views IMPRESSION: Mild dextroscoliosis with a diffuse degenerative disc disease. Electronically Signed: Christopher Schultz MD at 10:48 EDT Tel , Service support ,
--- NOTE | 2019-09-24 10:13 | RAD_ITS ---
STUDY: X-RAY - PELVIS AND RIGHT HIP REASON FOR EXAM: Female, 74 years old. pt fell last night, right leg pain TECHNIQUE: 3 views of the pelvis and hip. COMPARISON: None. FINDINGS: There is a non-specific bowel gas pattern. Normal visualized soft tissue structures. Normal bilateral iliac wings, sacroiliac joints and visualized sacrum. Normal bilateral superior and inferior pubic rami. Normal pubic symphysis. Normal bilateral ischial tuberosities. Normal visualized femoral head. Normal acetabulum. Normal hip joint. RAD/HIP, UNI W/ Pelvis 2-3 Views IMPRESSION: Normal x-ray examination of the pelvis and hip. Electronically Signed: Christopher Schultz MD at 10:47 EDT Tel , Service support ,
--- NOTE | 2019-09-24 10:13 | RAD_ITS ---
STUDY: X-RAY - RIGHT KNEE REASON FOR EXAM: Female, 74 years old. pt fell last night, right leg pain TECHNIQUE: 4 view(s) of the knee. COMPARISON: None. FINDINGS: Normal visualized distal femur. Normal visualized proximal tibia and fibula. Normal proximal tibiofibular articulation. Normal medial femorotibial compartment. Normal lateral femorotibial compartment. Normal patellofemoral articulation. The soft tissue structures are unremarkable. RAD/Knee 4 or More Views IMPRESSION: Normal x-ray examination of the knee. Electronically Signed: Christopher Schultz MD at 10:46 EDT Tel , Service support ,
--- NOTE | 2019-09-24 10:14 | ED.VIS.FALL ---
History of Present Illness Informant: Patient, Significant Other Occurred: Yesterday Mechanism/Context: Same level fall, Trip, Slip Fall from Height (ft): standing Usually ambulates: Without assistance Location: Lower back, right hip, right knee Quality of Pain: Aching Current Severity: Moderate Maximum Severity: Severe Worsened by: movement, walking Relieved by: rest Associated Symptoms: Negative for: Parasthesias, Weakness, Loss of function, Inability to ambulate, Loss of consciousness, Amnesia Length of loss of consciousness: no LOC Narrative: 74-year-old female presents to the emergency department after mechanical fall. This occurred yesterday. She was hiking outside. She stepped down off of a rock and stepped on some loose gravel and lost her balance. She fell on her right side. She landed on her right knee, right hip and on her lower back. She did not hit her head. She did not lose consciousness. She is not on blood thinners. She mostly has pain with ambulation. She does have some pain at rest but it is not severe. She denies any numbness or tingling. Denies any weakness. She has not lost control of her bowel or bladder function. Tetanus Immunization: Unknown Prior similar symptoms: No Recent Illness/Hospitalization: No <Jhon Mcfarland - Last Filed: 09/24/19 10:54> <Ángel Brooks - Last Filed: 09/24/19 12:47> Chief Complaint: Fall Past Medical History Prior records reviewed: Yes Past Medical History: - - Rainouts phenomenon and migraines Surgical History: cholecystectomy Smoking Status: Never smoker <Jhon Mcfarland - Last Filed: 09/24/19 10:54> <Ángel Brooks - Last Filed: 09/24/19 12:47> - Allergies and Home Meds Allergies/Adverse Reactions: Allergies ciprofloxacin [From Ciloxan] Adverse Reaction (Severe, Verified 09/24/19 09:58) Eye Drops_burning and redness nifedipine Adverse Reaction (Severe, Verified 09/24/19 09:58) SOB and severe foot swelling diltiazem Adverse Reaction (Intermediate, Verified 09/24/19 09:58) Severe fatigue Primary Care Physician: Nori Hope MD [Primary Care Provider] - Kaleb Baker MD [STAFF PHYSICIAN] - As soon as possible Review of Systems All systems negative except as indicated General: Denies: Chills, Fever, Sweats Eyes: Denies: Visual changes - bilaterally, Diplopia ENT: Denies: Rhinorrhea, Sore throat Cardiovascular: Denies: Chest pain, Palpitations Respiratory: Denies: Dyspnea, Cough, Dyspnea on exertion Gastrointestinal: Denies: Abdominal pain, Nausea, Vomiting, Diarrhea, Melena, Hematochezia Genitourinary: Denies: Dysuria, Hematuria, Frequency Musculoskeletal: Reports: Back pain, Extremity Pain. Denies: Myalgias, Arthralgias, Neck pain Skin: Denies: Rash, Abrasions, Wounds Neurological: Denies: Headache, Weakness, Numbness <Jhon Mcfarland - Last Filed: 09/24/19 10:54> Physical Exam Vital Signs/Narrative: Vital Signs Temp Pulse Resp BP Pulse Ox 09/24/19 09:58 97.6 F L 78 17 142/70 H 96 Inital Vital Signs reviewed: Yes General: Well nourished, Well developed Head: Normocephalic, Atraumatic Eyes: Perrl, EOMI ENT: TM's clear, No hemotympanum or drainage, No trauma Neck: Nontender, Full ROM Cardiovascular: Regular rate, Regular rhythm, No murmurs Respiratory: No distress, CTA bilaterally, Chest nontender Abdomen: Soft, Nontender, Nondistended, Normal bowel sounds Back: Spinal Tenderness, Paraspinal Tenderness, Positive SLR - Right, Negative SLR - Left. Negative for: CVA Tenderness - Right, CVA Tenderness - Left Extremeties: Normal inspection of the lower back, right hip, right leg, right knee and right thigh. No signs of trauma. No swelling. No bruising. No erythema. Patient has tenderness on palpation over the lumbar spine as well as the right lumbar paraspinal area. She has bony tenderness on her right hip as well. She is diffusely tender through her anterior right knee. She has normal strength testing at her hip with flexion and extension as well as at her knee with flexion and extension. She has normal DP and PT pulse. Sensation throughout the right lower extremity is normal. Skin: Normal color, No rash, No Trauma Neurological: Alert, Oriented x3, Cranial nerves II-XII grossly intact, Normal Strength, Normal Sensation, Normal Gait Psychological: Normal affect, Normal Mood <Jhon Mcfarland Last Filed: 09/24/19 10:54> Vital Signs/Narrative: Vital Signs Temp Pulse Resp BP Pulse Ox 09/24/19 09:58 97.6 F L 78 17 142/70 H 96 <Ángel Brooks - Last Filed: 09/24/19 12:47> Diagnostic/Tx/Re-eval Impressions Hip/Pelvis X-Ray 09/24/19 10:13 IMPRESSION: Normal x-ray examination of the pelvis and hip. Electronically Signed: Christopher Schultz MD at 10:47 EDT Tel , Service support , Knee X-Ray 09/24/19 10:13 IMPRESSION: Normal x-ray examination of the knee. Electronically Signed: Christopher Schulzt MD at 10:46 EDT Tel , Service support , Lumbar Spine X-Ray 09/24/19 10:13 IMPRESSION: Mild dextroscoliosis with a diffuse degenerative disc disease. Electronically Signed: Christopher Schultz MD at 10:48 EDT Tel , Service support , 09/24/19 10:13 HIP, UNI W/ Pelvis 2-3 Views [RAD] Stat Knee 4 or More Views [RAD] Stat Xray Lumbar [Lumbar Spine 2 or 3 Views] [RAD] Stat - Medical Decision Making 74-year-old female presented after a fall. She declined analgesia. We obtained x-rays of her lumbar spine, right hip, and right knee. No fractures or dislocations or other acute findings were seen. Her x-ray of her lumbar spine did show degenerative disc disease which is chronic for the patient. Patient was offered crutches and/or walker and declined. She declined a knee immobilizer. She was encouraged to follow-up with orthopedics and was referred to Dr. Baker orthopedic on-call. She will rest ice and elevate. She states that she will use [id number] medications for pain and swelling. She will be discharged <Rylie Mcfarlandony - Last Filed: 09/24/19 10:54> - Medical Decision Making Attending Note: I evaluated this patient with the midlevel provider. I performed my own face to face evaluation and agree with the above noted history and physical. I agree with the plan of care and the disposition. Patient presented after mechanical fall. Physical exam showed pain of the patient's knee hip and lower back. Radiographs by my personal interpretation as well as radiology are negative. Patient was given a walker for stability, and will follow-up with orthopedics as needed. <Ángel Brooks - Last Filed: 09/24/19 12:47> ED Disposition <Rylie Mcfarlandony - Last Filed: 09/24/19 10:54> <Ángel Brooks - Last Filed: 09/24/19 12:47> - Plan for ED Patient: Disposition: Home or Assisted Living Diagnosis: Lumbar contusion, Contusion of right hip, Contusion of right knee, Sprain of right knee Instructions: ED SOFT TISSUE CONTUSION, ED Sprain Knee Referrals: Nori Hope MD [Primary Care Provider] - Kaleb Baker MD [STAFF PHYSICIAN] - As soon as possible
--- NOTE | 2019-09-24 11:03 | ED.RN ---
DISCHARGE INSTRUCTIONS GIVEN TO AND REVIEWED WITH PATIENT, PATIENT DENIES QUESTIONS OR CONCERNS AND VOICES UNDERSTANDING OF DISCHARGE INSTRUCTIONS. PT AMBULATES OUT OF ROOM WITHOUT DIFFICULTY.
== END 2019-09-24 11:03 | disposition home or self-care (01) ==
PROVIDERS: Emergency Provider Physician Assistant Medical; PCP Family Medicine
DX: S30.0XXA Contusion of lower back and pelvis, initial encounter (principal); S70.01XA Contusion of right hip, initial encounter; S80.01XA Contusion of right knee, initial encounter; S83.91XA Sprain of unspecified site of right knee, initial encounter; W01.0XXA Fall on same level from slipping, tripping and stumbling without subsequent striking against object, initial encounter; Y93.01 Activity, walking, marching and hiking; Y92.9 Unspecified place or not applicable; Y99.8 Other external cause status
CPT/HCPCS: 72100; 73502; 73564; 99282

== ENCOUNTER → 2019-09-28 18:00 | Outpatient (CLI) | payer MEDICARE, OTHER, SELFPAY ==
[2019-09-24 09:58] VITALS: BMI 31.4
== END ==
PROVIDERS: PCP Family Medicine; Referring Provider Specialist; Visit Provider Specialist
DX: Z11.59 Encounter for screening for other viral diseases (principal)
CPT/HCPCS: 87635; 94799; U0003

== ENCOUNTER → 2019-09-29 08:06 | Outpatient (CLI) | payer MEDICARE, OTHER, SELFPAY ==
[2019-09-24 09:58] VITALS: BMI 31.4
--- NOTE | 2019-09-29 08:22 | EKG12_ITS ---
Test Reason : PREOP Blood Pressure : / mmHG Vent. Rate : 076 BPM Atrial Rate : 076 BPM P-R Int : 146 ms QRS Dur : 090 ms QT Int : 384 ms P-R-T Axes : 051 -39 038 degrees QTc Int : 432 ms Normal sinus rhythm Left axis deviation Low voltage QRS Abnormal ECG Confirmed by ROSITA MATA ([id number]), brands editor LOREN KENNEDY ([id number]) on 10/02/2019 2:03:07 PM Referred By: Kaleb Baker Confirmed By:ROSITA MATA
[2019-09-29 08:41] LABS: Absolute Lymphocyte Count 1.25 X10^3/uL (0.83-4.51); Absolute Neutrophil Count 7.4 X10^3/uL (2.0-7.7); Basophil# 0.04 X10^3/uL; Basophil% 0.4 % (0-1); Eosinophil# 0.04 X10^3/uL; Eosinophils% 0.4 % (0-5); Hematocrit 43.2 % (37-47); Hemoglobin 13.6 g/dL (12.0-15.0); Lymphocyte # 1.25 X10^3/ul (4.0); Lymphocyte % 13.1 % (19-41); Mean Corp Hgb Conc 31.5 g/dL (32-36); Mean Corpuscular Hgb 29.1 pg (27.0-32.0); Mean Corpuscular Volume 92.5 fL (81-99); Mean Platelet Vol. 10.2 fl (6.2-12.0); Monocyte# 0.72 X10^3/uL; Monocyte% 7.6 % (0-10); NRBC Flagged by Analyzer 0 % (0-5); Neutrophil # 7.42 X10^3/uL (2.7-7.7); Neutrophil % 78.1 % (47-70); Platelet Count 255 K/mm3 (150-450); RBC Distribution Width CV 13.1 % (11.6-14.6); RBC Distribution Width SD 44.3 fl (35.1-43.9); Red Blood Count 4.67 M/mm3 (4.2-5.4); White Blood Count 9.5 K/mm3 (4.4-11.0)
[2019-09-29 09:04] LABS: Anion Gap 4 (5-15); BUN 13 mg/dL (7-18); BUN/Creat Ratio 15.3 RATIO (10-20); Calcium,Total 9.1 mg/dL (8.5-10.1); Chloride 105 mmol/L (98-107); Creatinine, Serum 0.85 mg/dL (0.55-1.02); EST Glomerular Filtration Rate 70 mL/min (>60); Est Glom Filt Rate - Afr Amer 85 mL/min (>60); Glucose 89 mg/dL (74-106); Potassium 4.1 mmol/L (3.5-5.1); Sodium Level 140 mmol/L (136-145)
== END ==
PROVIDERS: PCP Family Medicine; Referring Provider Specialist; Visit Provider Specialist
DX: Z01.818 Encounter for other preprocedural examination (principal); Z01.810 Encounter for preprocedural cardiovascular examination
CPT/HCPCS: 36415; 80048; 85025; 93005

== ENCOUNTER → 2019-10-30 08:41 | Outpatient (CLI) | payer MEDICARE, OTHER, SELFPAY ==
--- NOTE | 2019-10-30 08:44 | US_ITS ---
STUDY: ABDOMINAL ULTRASOUND - RIGHT UPPER QUADRANT REASON FOR VISIT: Female, 74 years old RUQ PAIN TECHNIQUE: Ultrasound evaluation of the right upper quadrant was performed with real-time and static lugo-scale imaging. TECHNICAL QUALITY: Adequate. COMPARISON: None. FINDINGS: Liver: The liver measures 15.8 cm. There is normal echogenicity of the liver. The bile ducts are within normal limits. There is hepatic color flow. The direction of portal flow is hepatopetal. There is no demonstrated mass lesion. Gallbladder: The patient is status post cholecystectomy. Common Bile Duct (C.B.D.): The common bile duct measures 5.6 mm. Pancreas: Normal size of the head, body and tail of the pancreas. There is normal echogenicity of the pancreas. There is no demonstrated pancreatic mass or cyst. Right Kidney: Normal size of the right kidney. The right kidney measures 10.4 cm x 6.1 cm x 5.4 cm. Normal renal cortex. The right cortex measures 1.2 cm. There is no demonstrated renal mass or cyst. There is no right hydronephrosis. US/Liver IMPRESSION: Status post cholecystectomy. Electronically Signed: Carlos Torres, at 15:29 EDT , Service support ,
== END ==
PROVIDERS: PCP Family Medicine; Referring Provider Family Medicine; Visit Provider Family Medicine
DX: R93.89 Abnormal findings on diagnostic imaging of other specified body structures (principal); Z90.49 Acquired absence of other specified parts of digestive tract
CPT/HCPCS: 76705

== ENCOUNTER → 2019-12-04 15:31 | Outpatient (CLI) | payer MEDICARE, OTHER, SELFPAY ==
--- NOTE | 2019-12-04 15:36 | MRI_ITS ---
STUDY: MRI LUMBAR SPINE WITHOUT CONTRAST REASON FOR EXAM: Female, 74 years old. increased lower back pain, no known injury TECHNIQUE: Standardized fat and water weighted pulse sequences were obtained in the sagittal and axial planes. COMPARISON: None FINDINGS: T12-L1: There is large right para midline disc herniation migrating upward 20 mm impinging on the right side of the conus medullaris. Normal lumbar lordosis. There is dextroscoliosis of the lumbar spine angle measures 27 degrees. Normal conus medullaris that terminates at the L1 level L1-2: Endplate spondylosis. Decreased disc height and small circumferential disc bulge. Degenerative changes of the bilateral facet joints. Mild narrowing of the central canal and mild to moderate narrowing of the bilateral intervertebral neural foramina more prominent on the left side. L2-3: Endplate spondylosis. Decreased disc height and small circumferential disc bulge. Degenerative changes of the bilateral facet joints. Mild narrowing of the central canal and mild to moderate narrowing of the bilateral intervertebral neural foramina more prominent on the left side. L3-4: Endplate spondylosis. Decreased disc height and small circumferential disc bulge. Degenerative changes of the bilateral facet joints. Mild narrowing of the central canal and mild to moderate narrowing of the bilateral intervertebral neural foramina more prominent on the left side. L4-5: Endplate spondylosis. Decreased disc height and small circumferential disc bulge. Degenerative changes of the bilateral facet joints. Mild narrowing of the central canal and mild to moderate narrowing of the bilateral intervertebral neural foramina more prominent on the right side. L5-S1: Endplate spondylosis. Decreased disc height and small circumferential disc bulge. Degenerative changes of the bilateral facet joints. Mild narrowing of the central canal and bilateral intervertebral neural foramina. Normal visualized sacral ala. Normal visualized paraspinous soft tissue structures. MRI/Spine Lumbar (Routine) IMPRESSION: Multilevel degenerative changes, as described above. Large right para midline disc herniation at T12-L1. Electronically Signed: Tina Ackerman, at 8:09 EDT Tel , Service support ,
== END ==
PROVIDERS: PCP Family Medicine; Referring Provider Orthopaedic Surgery; Visit Provider Orthopaedic Surgery
DX: M46.1 Sacroiliitis, not elsewhere classified (principal)
CPT/HCPCS: 72148

== ENCOUNTER → 2019-12-08 14:17 | Outpatient (CLI) | payer MEDICARE, OTHER, SELFPAY ==
[2019-12-08 13:26] VITALS: BMI 31.4
--- NOTE | 2019-12-08 14:18 | VDLE_ITS ---
Reason For Study: R/O DVT RIGHT GSV is normal. CFV is compressible, spontaneous, phasic, competent and demonstrates normal augmentation. FV is compressible, spontaneous, phasic, competent and demonstrates normal augmentation. POP V is compressible, spontaneous, phasic, competent and demonstrates normal augmentation. PTV is compressible. T/P Trunk is compressible. RT PerV is compressible. Procedure This is a venous duplex using B-mode, color flow and spectral Doppler. Exam performed in department. A preliminary report was called and/or faxed to [facility]. Interpretation Summary There is no evidence of right lower extremity deep vein thrombosis. Right great saphenous vein appears patent and compressible segmentally. Ordering Physician: Michele Lehman Referring Physician: Nori Hope M.D. Performed By: Berta Moon RVT and Student
== END ==
PROVIDERS: PCP Family Medicine; Referring Provider Specialist; Visit Provider Specialist
DX: R07.9 Chest pain, unspecified (principal)
CPT/HCPCS: 93971

== ENCOUNTER → 2020-01-29 17:05 | Outpatient (CLI) | payer MEDICARE, OTHER, SELFPAY ==
[2019-12-08 13:26] VITALS: BMI 31.4
--- NOTE | 2020-01-29 17:18 | MRI_ITS ---
rt hip pain, NO KNOWN TRAUMA MRI EXAMINATION OF THERight HIP COMPARISON: Read aggressive right hip obtained on September 24, 2019 TECHNIQUE: Large [id number] coronal T1 and STIR and axial STIR images of the pelvis with small [id number] fat-suppressed T2 and fat-suppressed proton density axial and fat-suppressed proton density sagittal images of the right hip # of images including paperwork:207 FINDINGS: Bones: No evidence of an acute fracture. Minimal marrow edema is seen at the pubic bones bilaterally at the pubic symphysis. The pubic symphysis is not widened.. Musculotendinous structures: Insertional tendinosis involving the gluteus christiano on the left with a small trochanteric bursal fluid collection in this region. On coronal image 14 series 5. There is a fluid signal seen at the origin of the common hamstring tendons on the ischial tuberosities left greater than right. On the left there is probable minimal intrasubstance tear. On the right mild tendinosis. Intrapelvic contents: Right adnexal cyst measuring 2.2 cm. Hip joint and bursae: The hip joint is normal in appearance without hip joint effusion, avascular necrosis of the femoral heads, subchondral cyst formation, or other abnormality. Minimal amount of fluid is seen within the iliopsoas bursa on the right.. No displaced labral tear is identified. Neurovascular structures: No intrinsic or extrinsic mass along the course of the sciatic or femoral nerve is identified. No arterial aneurysm is identified. MRI/Lower Ext Joint Only (Routine) IMPRESSION: Probable mild tendinosis at the origin of the antral tendons on the right Probable minimal intrasubstance tear at the hamstring tendons origin on the left Insertional tendinosis involving the left gluteus christiano muscle with a small amount of trochanteric bursal fluid on the left Small amount of iliopsoas bursal fluid on the right Minimal edema is seen within the pubic bones at the pubic symphysis bilaterally but no evidence of widening . Right adnexal cyst at 0042 Reported and signed by: Yumi Westbrook DO Electronically Signed: Yumi Westbrook DO at 0:40 EST Tel , Service support ,
== END ==
PROVIDERS: PCP Family Medicine; Referring Provider Specialist; Visit Provider Specialist
DX: M25.551 Pain in right hip (principal)
CPT/HCPCS: 73721

== ENCOUNTER → 2020-03-04 16:09 | Outpatient (CLI) | payer MEDICARE, OTHER, SELFPAY ==
[2019-12-08 13:26] VITALS: BMI 31.4
[2020-03-06 07:22] LABS: SARS-COV-2 TOTAL ABS Reactive (Nonreactive)
== END ==
PROVIDERS: PCP Family Medicine; Visit Provider Family Medicine
DX: Z20.822 Contact with and (suspected) exposure to COVID-19 (principal)
CPT/HCPCS: 36415; 86769

== ENCOUNTER → 2020-03-15 09:51 | Outpatient (CLI) | payer MEDICARE, OTHER, SELFPAY ==
[2019-12-08 13:26] VITALS: BMI 31.4
[2020-03-08 13:38] VITALS: BMI 31.2
--- NOTE | 2020-03-15 09:56 | US_ITS ---
STUDY: ULTRASOUND OF THE FEMALE PELVIS - COMPLETE REASON FOR EXAM: Female, 74 years old. RT OVARIAN CYST SEEN ON AN MRI. HX OF HYSTERECTOMY LMP: Postmenopausal. TECHNIQUE: Transvaginal TECHNICAL QUALITY: Adequate. COMPARISON: None. FINDINGS: The patient is status post hysterectomy. The right ovary is visualized. The right ovary measures 2.5 cm x 2 cm x 2 cm. There is a 2.1 cm x 1.8 cm x 1.6 cm cyst in the right ovary. There is no visualized right adnexal mass or complex lesion. There is normal arterial and normal venous vascularity. The left ovary is non-visualized. There is no fluid in the cul-de-sac. US/Transvaginal Non- IMPRESSION: Status post hysterectomy. 2.1 cm x 1.8 cm x 1.6 cm cyst in the right ovary. Electronically Signed: Carlos Torres MD at 13:46 EST , Service support ,
== END ==
PROVIDERS: PCP Family Medicine; Referring Provider Family Medicine; Visit Provider Family Medicine
DX: N83.201 Unspecified ovarian cyst, right side (principal); N83.8 Other noninflammatory disorders of ovary, fallopian tube and broad ligament; Z90.710 Acquired absence of both cervix and uterus
CPT/HCPCS: 76830

== ENCOUNTER → 2020-05-06 07:44 | Outpatient (CLI) | payer MEDICARE, OTHER, SELFPAY ==
[2020-03-08 13:38] VITALS: BMI 31.2
--- NOTE | 2020-05-06 07:55 | US_ITS ---
STUDY: ULTRASOUND OF THE FEMALE PELVIS - COMPLETE REASON FOR EXAM: Female, 75 years old. RIGHT ADNEXAL MASS OVARIAN LMP: Patient is postmenopausal. TECHNIQUE: Transvaginal TECHNICAL QUALITY: Adequate. COMPARISON: Comparison is made with prior study dated 03/15/2020. FINDINGS: The patient is status post hysterectomy. The right ovary is visualized. The right ovary measures 3.1 cm x 2.2 cm x 2.4 cm. There is a 2.1 cm x 1.9 cm x 1.9 cm cyst in the right ovary. This is essentially unchanged. There is no visualized right adnexal mass or complex lesion. There is normal arterial and normal venous vascularity. The left ovary is non-visualized. There is no fluid in the cul-de-sac. US/Transvaginal Non- IMPRESSION: Stable 2.1 cm x 1.9 cm x 1.9 cm right ovarian cyst. Status post hysterectomy. Electronically Signed: Carlos Torres MD at 9:50 EDT , Service support ,
== END ==
PROVIDERS: PCP Family Medicine; Referring Provider Family Medicine; Visit Provider Family Medicine
DX: N83.201 Unspecified ovarian cyst, right side (principal); Z90.710 Acquired absence of both cervix and uterus
CPT/HCPCS: 76830

== ENCOUNTER → 2020-05-17 | Outpatient (CLI) | payer MEDICARE, OTHER, SELFPAY ==
[2020-03-08 13:38] VITALS: BMI 31.2
--- NOTE | 2020-05-17 07:45 | COLBX_PTH ---
PATIENT: HAYDER PETERS LOC: [facility] U#:[id number] AGE/SX: 75/F ROOM: RE05/17/[address]: Dr. Jack Perez MD : [id number] BED: DIS: 05/17/2020 SPEC #: [id number] RECD: 05/17/20 15:01 STATUS: BRIDGER BERGMAN #: [id number] ELSY: 05/17/20 07:[address]: Jack Perez DEPT: SURGICAL PATHOLOGY RECD BY: Tete Ambriz ENTERED: 05/20/20 08:17 SP TYPE: COLON BX OTHR DR: Dr. Nori Hope MD [facility] Tissues: Sigmoid colon biopsy Procedures: Surgery Specimen Level IV HEADER OPERATION: Colonoscopy and polypectomy PRE-OP DIAGNOSIS: Screening TISSUE SUBMITTED: Polypectomy sigmoid at 35 cm, rule out adenoma MICROSCOPIC DIAGNOSIS Sigmoid colon polyp at 35 cm, polypectomy: Tubulovillous adenoma. AM:yarelis 05/21/2020 MICROSCOPIC DESCRIPTION Slides are reviewed. GROSS DESCRIPTION Received in fixative is one container labeled with the patient's name and designated polypectomy sigmoid 35 cm. The specimen consists of a bautista-pink polyp measuring 1.3 x 1.5 x 1 cm. A polyp is inked, serially sectioned and submitted entirely in one cassette. / SJ:yarelis 05/20/20 TC:1 CPT: 30898
== END | disposition home or self-care (01) ==
LOC: LABSPEC 15:17
PROVIDERS: PCP Family Medicine; Referring Provider Internal Medicine Gastroenterology; Visit Provider Internal Medicine Gastroenterology
DX: Z12.11 Encounter for screening for malignant neoplasm of colon (principal)
CPT/HCPCS: 88305

== ENCOUNTER → 2020-10-04 15:41 | Outpatient (CLI) | payer MEDICARE, OTHER, SELFPAY ==
[2020-06-04 14:51] VITALS: BMI 31.6
--- NOTE | 2020-10-04 15:47 | MRI_ITS ---
STUDY: MRI RIGHT KNEE REASON FOR EXAM: Female, 75 years old. RIGHT knee pain(anterior and medial). Prior surgery September 2018 TECHNIQUE: Standardized fat and water weighted pulse sequences were obtained in all 3 orthogonal planes. COMPARISON: None. FINDINGS: Small radial tear is present at the free edge of the inner one third aspect of the posterior horn of the medial meniscus. Normal body and anterior horn. There is diffuse, greater than 50% thickness articular cartilage loss of the medial femorotibial compartment. Mild subchondral reactive edema/signal is present in the tibial plateau. Normal medial femoral condyle. Normal medial collateral ligamentous complex (MCL). Normal distal semimembranosus, gracilis and semitendinosus tendons. Normal lateral meniscus. Normal hyaline cartilage of the lateral femorotibial compartment. Normal lateral femoral condyle and tibial plateau. Normal proximal tibiofibular articulation. Normal lateral collateral (fibular) ligament. Normal popliteus tendon. Normal biceps femoris tendon. Normal anterior cruciate ligament (ACL). Normal posterior cruciate ligament (PCL). Normal congruent patellofemoral articulation. There is full-thickness loss of cartilage over the medial patellar facet. The cartilage of the trochlear groove is moderately thinned. Normal lateral patellar facet cartilage. Normal medial and lateral patellar retinaculum. Normal quadriceps tendon. Normal patellar tendon. Normal Hoffa''s fat pad. A small joint effusion is present. The soft tissues are unremarkable. The otherwise visualized osseous structures are unremarkable. MRI/Lower Ext Joint Only (Routine) IMPRESSION: 1. Small radial tear of the posterior horn of medial meniscus 2. Full-thickness loss of cartilage of the medial patellar facet Electronically Signed: Shaun Silver MD at 18:27 EDT , Service support ,
== END ==
PROVIDERS: PCP Family Medicine; Referring Provider Specialist; Visit Provider Specialist
DX: S83.241A Other tear of medial meniscus, current injury, right knee, initial encounter (principal); X58.XXXA Exposure to other specified factors, initial encounter
CPT/HCPCS: 73721

== ENCOUNTER 2020-10-27 20:48 | Emergency (ER) | payer MEDICARE, OTHER, SELFPAY ==
[2020-10-27 20:50] VITALS: BP 141/82; PULSE 73; RESP 14; TEMP 36.2; O2SAT 99; BMI 29.6
[2020-10-27 21:11] LABS: Absolute Neutrophil Count 13.1 X10^3/uL (2.0-7.7); Basophil# 0.04 X10^3/uL; Basophil% 0.3 % (0-1); Eosinophil# 0.24 X10^3/uL; Eosinophils% 1.6 % (0-5); Hematocrit 47.1 % (37-47); Hemoglobin 15.2 g/dL (12.0-15.0); Lymphocyte % 4.1 % (19-41); Mean Corp Hgb Conc 32.3 g/dL (32-36); Mean Corpuscular Hgb 30.1 pg (27.0-32.0); Mean Corpuscular Volume 93.3 fL (81-99); Mean Platelet Vol. 11.2 fl (6.2-12.0); Monocyte% 3.4 % (0-10); NRBC Flagged by Analyzer 0 % (0-5); Neutrophil # 13.14 X10^3/uL (2.7-7.7); Neutrophil % 90.1 % (47-70); POSITIVE DIFFERENTIAL YES; Platelet Count 212 K/mm3 (150-450); RBC Distribution Width CV 13.2 % (11.6-14.6); RBC Distribution Width SD 45.1 fl (35.1-43.9); Red Blood Count 5.05 M/mm3 (4.2-5.4); White Blood Count 14.6 K/mm3 (4.4-11.0)
[2020-10-27 21:14] LABS: Differential Indicated SCAN CRITERIA MET
[2020-10-27 21:20] LABS: Anion Gap 11 (5-15); BUN 22 mg/dL (7-18); BUN/Creat Ratio 28.5 RATIO (10-20); Calcium,Total 9.5 mg/dL (8.5-10.1); Chloride 108 mmol/L (98-107); Creatinine, Serum 0.77 mg/dL (0.55-1.02); EST Glomerular Filtration Rate 78 mL/min (>60); Est Glom Filt Rate - Afr Amer 94 mL/min (>60); Estimated Creatinine Clearance 37.81 ml/min; Glucose 175 mg/dL (74-106); Potassium 3.8 mmol/L (3.5-5.1); Sodium Level 143 mmol/L (136-145)
[2020-10-27 21:46] LABS: Mucous, Urine 0 SEEN /hpf (<or=2+); Red Blood Cells-Urine 0 SEEN /hpf (0-5); Squamous Epithelial Cells - UA 0 SEEN /hpf (5-10)
[2020-10-27 21:49] LABS: Color, Urine Yellow (Yellow); Glucose, Dipstick Normal (Normal); Leukocyte Esterase-Dipstick 100 /ul (Negative); Nitrite-Dipstick Negative (Negative); Occult Blood-Urine 10 /ul (Negative); Protein-Dipstick 30 mg/dl (Negative); Urine Bilirubin Dipstick Negative (Negative); Urine Clarity Sl. Cloudy (Clear); Urine Urobilinogen Normal (Normal)
[2020-10-27 21:56] LABS: Ketone-Dipstick 150 mg/dl (Negative)
[2020-10-27 21:59] LABS: White Blood Cells 5-10 SEEN /hpf (0-5)
[2020-10-27 22:00] LABS: Bacteria RARE /hpf (None Seen)
[2020-10-27 22:11] LABS: Differential Comment SCANNED
[2020-10-27 22:18] VITALS: BP 109/66; PULSE 83; RESP 20; O2SAT 96
--- NOTE | 2020-10-27 22:21 | CT_ITS ---
STUDY: CT ABDOMEN AND PELVIS WITH CONTRAST REASON FOR EXAM: Female, 75 years old. Nausea vomiting diarrhea RADIATION DOSAGE (If Supplied By Facility): CTDIvol = ( 23.27 ) mGy, DLP = ( 766.37 ) mGycm TECHNIQUE: Transaxial images were obtained from the dome of the diaphragm to the symphysis pubis without oral contrast. IV 100mL Isovue-370 was administered. Sagittal and coronal images were reconstructed. Individualized dose optimization techniques were used for this CT. COMPARISON: 07/22/2012 FINDINGS: Mild bibasilar atelectasis. The visualized portions of the heart are within normal limits. Normal liver. There are surgical clips in the gallbladder fossa consistent with a prior cholecystectomy. Normal spleen. Normal pancreas. Normal bilateral adrenal glands. Normal right kidney. Normal left kidney. Normal visualized stomach. Normal small intestine. Normal colon. There is non-visualization of the appendix. Normal abdominal aorta. Normal inferior vena cava. Normal retroperitoneum. There is a tiny amount of gas in the urinary bladder. There is absence of the uterus consistent with a prior hysterectomy. Normal abdominal wall. There are diffuse degenerative changes of the visualized lumbar spine. CT/Abdomen/Pelvis W IV Cont ONLY IMPRESSION: There is a tiny amount of gas in urinary bladder. Correlate with recent instrumentation. Mild bibasilar atelectasis. Electronically Signed: Olayinka Zuniga MD at 23:36 EDT Tel , Service support ,
--- NOTE | 2020-10-27 22:29 | EDS_ITS ---
HPI HPI - GI History of Present Illness Chief Complaint: Nausea/Vomiting/Diarrhea Narrative Narrative: Patient presents with her because of nausea, vomiting, and diarrhea that began 3 hours ago. She states she did not feel well yesterday. However, today she was able to get up and bike ride. She started having nausea that was increasing and vomited multiple times. She states she also had loose, watery stool. Near the end of her emesis she is unsure but thinks there may have been blood tinges from her multiple episodes of vomiting. She denies any fevers or chills. She has been vaccinated for Covid, and additionally had Covid in the past. No prior abdominal surgeries. She states that she feels weak and shaky. Her states she never lost color, but states that she continues to have nausea. She has past medical history of chronic back pain that is an operable, so she takes ibuprofen daily. [facility] Medical History (Updated 10/27/20 @ 23:54 by Bi Worrell MD) Back pain Chest pain Coronary artery vasospasm GERD (gastroesophageal reflux disease) Incontinence Neck pain Nonrheumatic mitral (valve) insufficiency Pericardial effusion Transient visual loss of right eye Home Medications artifi.tears(hypromellose)(PF) 0.3 % eye drops 1 drp OPHTHALMIC 4-8XD PRN 04/29/18 [History Last Taken Unknown] triamcinolone acetonide 0.1 % dental paste 1 applic DENTAL BID 04/29/18 [History Last Taken Unknown] ibuprofen 200 mg tablet 800 mg PO DAILY PRN tab 06/12/19 [History Last Taken Unknown] acetaminophen 500 mg tablet 1,000 mg PO DAILY tab 12/08/19 [History Last Taken Unknown] sertraline 50 mg tablet 25 mg PO DAILY PRN tab 12/08/19 [History Last Taken Unknown] nitroglycerin 0.4 mg sublingual tablet 0.4 mg SUBLINGUAL Q5-15M PRN #25 tab 04/26/20 [Rx Last Taken Unknown] isosorbide dinitrate 10 mg tablet 10 mg PO BID #60 tab 06/04/20 [Rx Last Taken Unknown] ondansetron 4 mg PO Q8H PRN #10 tab 10/27/20 [Rx Last Taken Unknown] Allergy/AdvReac Type Severity Reaction Status Date / Time ciprofloxacin [From Ciloxan] AdvReac Severe Eye Verified 10/27/20 20:49 Drops_burning and redness nifedipine AdvReac Severe SOB and Verified 10/27/20 20:49 severe foot swelling diltiazem AdvReac Intermediate Severe Verified 10/27/20 20:49 fatigue Family History Father , Age 78 CAD (coronary artery disease) Hypertension Mother , Age 41 from brain aneurysm rupture Brain aneurysm Surgical History (Updated 10/27/20 @ 20:57 by Shadia Melvin) History of appendectomy History of History of cataract surgery History of cholecystectomy History of hysterectomy History of laparoscopy History of left heart catheterization (05/05/18) History of medial meniscus repair of right knee (~10/2019) History of surgical removal of ganglion cyst Social History (Updated 06/04/20 @ 16:58 by Madelyn CARLSON, PA) Smoking Status: Never smoker alcohol intake: never substance use type: does not use caffeine: Yes Type: carbonated beverages Number of servings: 6 and coffee Number of servings: 2 ROS ROS ED ROS Narrative Constitutional: No fever, no chills. Generalized weakness. HEENT: No sore throat. No neck pain. No loss of vision. No rhinorrhea. Cardiovascular: No chest pain. No palpitations. No pedal edema. Respiratory: No cough, no shortness of breath. Abdominal: No abdominal pain. Positive nausea. Positive vomiting. Questionable blood tinged emesis. Watery diarrhea, multiple episodes Genitourinary: No dysuria. No hematuria. Musculoskeletal: No myalgias. No arthralgias. Neurologic: No headaches. No dizziness. No lightheadedness. Generalized weakness. Shakiness. Skin: No rash. No change in color. Psychiatric: No depression. No anxiety. EXAM Physical Exam Narrative Exam Narrative: Afebrile. Vital signs noted. HEENT: Normocephalic. Atraumatic. PERRL, EOMI. Neck soft and supple. No point tenderness or step off. Cardiovascular: Regular rate and rhythm. No murmurs, rubs, or gallops appreciated. Respiratory: No tachypnea. Lungs clear to auscultation bilaterally. Gastrointestinal: Abdomen soft, nontender, with normoactive bowel sounds. No rebound or guarding. Neurological: Awake. Alert. Nonfocal, nonlateralizing. Skin: No rash. Normal color. No pallor. Musculoskeletal: No pedal edema. Full range of motion extremities. Const Vital Signs: 10/27/20 20:50 10/27/20 22:18 10/27/20 23:34 Temperature 97.2 F L Temperature Source Temporal Pulse Rate 73 83 81 Respiratory Rate 14 20 H 17 Blood Pressure 141/82 H 109/66 108/65 Blood Pressure Mean 101 80 79 Pulse Ox 99 96 95 Oxygen Delivery Method Room Air Room Air Room Air MDM MDM MDM Narrative Medical decision making narrative: Comprehensive work-up was pursued. She does have an elevated white count of 14.6 with a stable hemoglobin of 15.2. Protocol laboratories had been entered. Her electrolyte panel is grossly unremarkable. Urinalysis shows 150 urine ketones with leukocyte esterase, but only 5-10 WBCs. I do not feel antibiotics are indicated. I will add LFTs and lipase, and obtain a CT of her abdomen and pelvis. She had already been administered Zofran so she states that her nausea has been improved. LFTs are grossly unremarkable. Lipase normal at 89. I do think that her elevated white count is secondary to demargination from her vomiting and diarrhea. CT of the abdomen pelvis shows no acute process. I do not feel antibiotics are indicated. Upon repeat examination, she feels improved. Her urinalysis was consistent with dehydration. She was told to start a clear liquid diet and advance as tolerated. I will write her a prescription for Zofran. I feel she be discharged safely home with follow-up. Return instructions to the emergency department were reviewed. Disposition is discharged home in stable condition. Lab Data Attestation: I reviewed the patient's lab results. Labs: Laboratory Results - last 24 hr 10/27/20 10/27/20 10/27/20 20:54 20:54 20:54 WBC 14.6 H RBC 5.05 Hgb 15.2 H Hct 47.1 H MCV 93.3 MCH 30.1 MCHC 32.3 RDW Std Deviation 45.1 H RDW Coeff of Luis Fernando 13.2 Plt Count 212 MPV 11.2 Immature Gran % (Auto) 0.500 Neut % (Auto) 90.1 H Lymph % (Auto) 4.1 L [place] % (Auto) 3.4 Eos % (Auto) 1.6 Baso % (Auto) 0.3 Absolute Neuts (auto) 13.1 H Absolute Lymphs (auto) 0.60 L Nucleated RBC % 0 Differential Comment SCANNED Sodium 143 Potassium 3.8 Chloride 108 H Carbon Dioxide 24.0 Anion Gap 11 BUN 22 H Creatinine 0.77 Estim Creat Clear Calc 37.81 Est GFR (MDRD) Af Amer 94 Est GFR (MDRD) Non-Af 78 BUN/Creatinine Ratio 28.5 H Glucose 175 H Calcium 9.5 Total Bilirubin 0.60 Direct Bilirubin 0.15 AST 23 ALT 22 Alkaline Phosphatase 75 Total Protein 7.3 Albumin 4.2 Globulin 3.1 Lipase 89 Urine Color Urine Clarity Urine pH Ur Specific [place] Urine Protein Urine Glucose (UA) Urine Ketones Urine Occult Blood Urine Nitrite Urine Bilirubin Urine Urobilinogen Ur Leukocyte Esterase Urine RBC Urine WBC Ur Squamous Epith Cells Urine Bacteria Urine Mucus 10/27/20 21:41 WBC RBC Hgb Hct MCV MCH MCHC RDW Std Deviation RDW Coeff of [place] Plt Count MPV Immature Gran % (Auto) Neut % (Auto) Lymph % (Auto) [place] % (Auto) Eos % (Auto) Baso % (Auto) Absolute Neuts (auto) Absolute Lymphs (auto) Nucleated RBC % Differential Comment Sodium Potassium Chloride Carbon Dioxide Anion Gap BUN Creatinine Estim Creat Clear Calc Est GFR (MDRD) Af Amer Est GFR (MDRD) Non-Af BUN/Creatinine Ratio Glucose Calcium Total Bilirubin Direct Bilirubin AST ALT Alkaline Phosphatase Total Protein Albumin Globulin Lipase Urine Color Yellow Urine Clarity Sl. Cloudy Urine pH 5.0 Ur Specific [place] 1.020 Urine Protein 30 H Urine Glucose (UA) Normal Urine Ketones 150 A* Urine Occult Blood 10 H Urine Nitrite Negative Urine Bilirubin Negative Urine Urobilinogen Normal Ur Leukocyte Esterase 100 H Urine RBC 0 SEEN Urine WBC 5-10 SEEN Ur Squamous Epith Cells 0 SEEN Urine Bacteria RARE Urine Mucus 0 SEEN Radiography Diagnostic Testing: Radiology Impression Abdomen/Pelvis CT 10/27/20 22:21 IMPRESSION: There is a tiny amount of gas in urinary bladder. Correlate with recent instrumentation. Mild bibasilar atelectasis. Electronically Signed: Olayinka Zuniga MD at 23:36 EDT Tel , Service support , Discharge Plan Triage Chief Complaint: Nausea/Vomiting/Diarrhea ED Provider: Bi Worrell Dx/Rx/DC Orders Clinical Impression: Gastroenteritis, Dehydration Instructions: ED Dehydration (Adult), ED Diet for Vomiting or ..., ED Gastroenteritis, Viral (Adult) Prescriptions: New ondansetron 4 mg tablet,disintegrating 4 mg PO Q8H PRN (Reason: nausea and vomiting) Qty: 10 RF: 0 No Action artifi.tears(hypromellose)(PF) 0.3 % drops 1 drp OPHTHALMIC 4-8XD PRN (Reason: Dry Eye) RF: 0 triamcinolone acetonide 0.1 % paste 1 applic DENTAL BID RF: 0 sertraline 50 mg tablet 25 mg PO DAILY PRN (Reason: for fibromyalgia) RF: 0 ibuprofen 200 mg tablet 800 mg PO DAILY PRN (Reason: Pain) RF: 0 acetaminophen 500 mg tablet 1,000 mg PO DAILY RF: 0 isosorbide dinitrate 10 mg tablet 10 mg PO BID Qty: 60 RF: 11 nitroglycerin 0.4 mg tablet, sublingual 0.4 mg SUBLINGUAL Q5-15M PRN (Reason: chest pain) Qty: 25 RF: 3 Primary Care Provider: Nori Hope Referrals: Nori Hope MD [Primary Care Provider] - 10/29/20 Disposition Disposition: Home, Self Care
[2020-10-27 23:11] LABS: AST(SGOT) 23 U/L (15-37); Alanine Aminotransfer ALT/SGPT 22 U/L (13-56); Albumin, Serum 4.2 g/dL (3.2-5.0); Alkaline Phosphatase 75 U/L (45-117); Bilirubin, Direct 0.15 mg/dL (0.00-0.30); Globulin 3.1 g/dL (2.2-4.2); Lipase 89 U/L (73-393); Protein, Total 7.3 g/dL (6.4-8.2)
[2020-10-27 23:34] VITALS: BP 108/65; PULSE 81; RESP 17; O2SAT 95
[2020-10-28] MEDS: Ondansetron ODT 4 MG Tablet PO (00:15)
[2020-10-28 00:18] VITALS: BP 114/67; PULSE 89; RESP 16; O2SAT 94
== END 2020-10-28 00:18 | disposition home or self-care (01) ==
PROVIDERS: Emergency Provider Emergency Medicine; PCP Family Medicine
DX: K52.9 Noninfective gastroenteritis and colitis, unspecified (principal); E86.0 Dehydration; Z86.16 Personal history of COVID-19
CPT/HCPCS: 74177; 80048; 80076; 81001; 83690; 85025; 99285; Q9967

== ENCOUNTER → 2020-10-29 | Outpatient (CLI) | payer MEDICARE, OTHER, SELFPAY | END | disposition home or self-care (01) | LOC: LABSPEC 16:51 | PROVIDERS: PCP Family Medicine; Referring Provider Family Medicine; Visit Provider Family Medicine | DX: Z20.822 Contact with and (suspected) exposure to COVID-19 (principal) | CPT/HCPCS: 87635; U0005; U0003 ==

== ENCOUNTER → 2020-11-05 16:40 | Outpatient (CLI) | payer MEDICARE, OTHER, SELFPAY ==
--- NOTE | 2020-11-05 16:30 | BI_ITS ---
MAMMOGRAPHY - BILATERAL SCREENING REASON FOR EXAM: Female, 75 years old. Routine annual screening examination. PERTINENT HISTORY: Non-contributory. TECHNIQUE: Digital bilateral breast zhane (3D mammographic acquisition) in the CC and MLO projections. 2-D mediolateral oblique (MLO) and craniocaudad (CC) views of both breasts were obtained. CAD: Full Field Digital Mammography with Computer Added Detection was performed. COMPARISON: Comparison is made with prior study dated 06/16/2019 and 06/03/2018. FINDINGS: Breast Composition: The breasts are heterogeneously dense, which may obscure small masses. There are no dominant masses or suspicious calcifications. No other significant abnormalities are identified. There has been no significant change since the prior study. BI/SCRN MAMM (CAD)W/ZHANE BILAT IMPRESSION: Stable bilateral screening mammogram. Yearly follow-up mammogram recommended. (A) ASSESSMENT CATEGORY: BIRADS Category 1: Negative. A letter regarding these results will be sent to the patient by the facility within 30 days. Approximately 10% of breast cancers are not detected by mammography. A normal mammogram should not delay biopsy of a clinically suspicious abnormality. [id number] Electronically Signed: Carlos Torres MD at 8:37 EDT , Service support ,
== END ==
PROVIDERS: PCP Family Medicine; Visit Provider Family Medicine
DX: Z12.31 Encounter for screening mammogram for malignant neoplasm of breast (principal)
CPT/HCPCS: 77063; 77067

== ENCOUNTER → 2020-12-23 14:47 | Outpatient (CLI) | payer MEDICARE, OTHER, SELFPAY ==
--- NOTE | 2020-12-23 14:49 | US_ITS ---
STUDY: ULTRASOUND BREAST - LEFT REASON FOR EXAM: Female, 75 years old. Pain in the upper outer quadrant of the left breast. TECHNIQUE: Axial and longitudinal images of the LEFT breast were performed with a high resolution ultrasound transducer. # OF IMAGES: 53 COMPARISON: Comparison is made with prior mammogram dated 11/05/2020. FINDINGS: LEFT Breast: The upper outer quadrant of the left breast was examined by ultrasound. No sonographic abnormality is seen. US/Breast Limited Unilateral IMPRESSION: No sonographic abnormality is seen. ASSESSMENT CATEGORY: BIRADS Category 1: Negative. A letter regarding these results will be sent to the patient by the facility within 30 days. Electronically Signed: Carlos Torres MD at 15:42 EST , Service support ,
== END ==
PROVIDERS: PCP Family Medicine; Referring Provider Family Medicine; Visit Provider Family Medicine
DX: N64.4 Mastodynia (principal); R92.2 Inconclusive mammogram
CPT/HCPCS: 76642

== ENCOUNTER 2021-05-23 15:29 | Outpatient (CLI) | payer MEDICARE, OTHER, SELFPAY ==
--- NOTE | 2021-05-23 16:17 | MRI_ITS ---
HISTORY: Spinal stenosis lumbar region, spondylosis with radiculopathy. TECHNIQUE: Multiplanar and multisequence MR images of the lumbar spine. IV Contrast dosage and agent: None. # of images incl. paperwork: 159. COMPARISON: 12/04/2019. FINDINGS: VERTEBRAE: Vertebral body heights maintained. Degenerative bone marrow endplate changes at L1-2, L2-3, L3-4, and L4-5. ALIGNMENT: No significant anterior or posterior subluxation. Mild dextroscoliosis. CONUS: Normal morphology and position at T12-L1. SOFT TISSUES: Posterior subcutaneous edema. Hepatomegaly. INTERVERTEBRAL DISCS: Posterior disc bulge osteophyte complexes with facet arthropathy at multiple levels. T12-L1: 1.9 cm disc extrusion with inferior and superior migration resulting in mild spinal canal stenosis appears slightly increased in size compared to prior based on the sagittal images. Incompletely imaged on the axial images. L1-2: Left paracentral disc protrusion with facet arthropathy again abutting the left L2 neuroforamen with minimal narrowing of the thecal sac and mild left foraminal narrowing L2-3:Minimal narrowing of the thecal sac and mild-moderate left foraminal narrowing, similar to prior. L3-4: Minimal narrowing of the thecal sac with moderate left and mild right foraminal narrowing, similar to prior. L4-5: Minimal narrowing of thecal sac and moderate right foraminal narrowing, similar to prior. L5-S1: Minimal narrowing of the thecal sac and bilateral foramina, similar to prior. MRI/Spine Lumbar (Routine) IMPRESSION: Incompletely imaged large disc extrusion with inferior and superior migration at T12-L1, slightly increased in size from prior. Otherwise no significant interval change in multilevel degenerative disc disease as described above. at 1655 Reported and signed by: Christiane Adames MD Electronically Signed: Christiane Adames MD at 16:54 EDT ,
== END 2021-05-23 23:59 | disposition home or self-care (01) ==
LOC: MRI 15:30
PROVIDERS: PCP Family Medicine; Referring Provider Specialist; Visit Provider Specialist
DX: M48.07 Spinal stenosis, lumbosacral region (principal); M47.26 Other spondylosis with radiculopathy, lumbar region; M51.26 Other intervertebral disc displacement, lumbar region
CPT/HCPCS: 72148

== ENCOUNTER → 2021-06-07 | Outpatient (CLI) | payer MEDICARE, OTHER, SELFPAY ==
--- NOTE | 2021-06-07 09:45 | MRI_ITS ---
STUDY: MRI LUMBAR SPINE WITHOUT CONTRAST REASON FOR EXAM: Female, 76 years old. ABNORMAL PRIOR IMAGING TECHNIQUE: Additional nonenhanced imaging performed to better evaluate the T12/L1 and L1/2 levels. COMPARISON: Correlation is made with prior MR of 05/23/2021. FINDINGS: T12/L1: Disc degeneration/dehydration. The disc space is relatively preserved. As noted on the prior parasagittal images, there is focal posterior extension of disc signal intensity at the midline indicating a central disc extrusion, with both superior and inferior migration. This disc extrusion measures 1.9 cm in cephalocaudal dimension by 1.1 cm in maximal transverse diameter by 0.7 cm in AP diameter, with a cauliflower shape. The disc extrusion indents the ventral aspect of the thecal sac and slightly displaces the conus posteriorly. AP diameter of the thecal sac is measures approximately 10 mm at this level, as measured on the parasagittal images. L1/2 disc space is moderately narrowed with disc degeneration/dehydration, marginal osteophytes and mild endplate degenerative changes. As noted on the prior study, a left paracentral disc protrusion is noted, mildly indenting the ventral aspect of the thecal sac and mildly narrowing the left lateral recess. Inferior neural foramina are narrowed at this level by annular bulging and facet hypertrophy. Disc space narrowing, endplate degenerative changes, marginal osteophytes and broad-based annular bulges again noted at the L2/3 and L3/4 levels. The conus is normally positioned. No compression fracture or metastatic lesion is noted. The visualized aorta is normal in caliber. No paraspinal soft tissue swelling is seen. CONCLUSIONS: Central disc extrusion at T12/L1, with superior and inferior migration, resulting in mild spinal canal stenosis and with minimal posterior displacement of the adjacent conus. Electronically Signed: Edin Lord MD at 7:38 EDT , MRI/Spine Lumbar (Routine)
== END | disposition home or self-care (01) ==
LOC: MRI 09:27
PROVIDERS: PCP Family Medicine; Visit Provider Orthopaedic Surgery
DX: M48.062 Spinal stenosis, lumbar region with neurogenic claudication (principal)
CPT/HCPCS: 72148

== ENCOUNTER → 2021-06-10 | Outpatient (CLI) | payer MEDICARE, OTHER, SELFPAY ==
--- NOTE | 2021-06-10 13:59 | BD_ITS ---
STUDY: DUAL ENERGY X-RAY ABSORPTIOMETRY / DXA REASON FOR EXAM: Female, 76 years old. M85.89. The patient is postmenopausal. TECHNIQUE: Bone Mineral Density (BMD) measurements of lumbar spine and bilateral hips were obtained. COMPARISON: Comparison is made with prior study dated 01/24/2015. FINDINGS: Lumbar Spine (L1-L4): g/cm2 (0.807) / T-score (-2.1) / Z-score (0.3) Findings are suggestive of osteopenia with a high fracture risk. Left Femur Total: g/cm2 (0.656) / T-score (-2.3) / Z-score (-0.6) Left Femoral Neck: g/cm2 (0.534) / T-score (-2.8) / Z-score (-0.8) Right Femur Total: g/cm2 (0.614) / T-score (-2.7) / Z-score (-1.0) Right Femoral Neck: g/cm2 (0.46) / T-score (-3.5) / Z-score (-1.5) The T-Scores on the most recent prior examination were: Lumbar Spine (L1-L4): There has been worsening of bone density since the previous examination. Left Femur Total: which represents a worsening of 3.4%. Right Femur Total: which represents a worsening of 2.4%. BD/Dexa Bone Density Study IMPRESSION: The patient is considered osteoporotic as outlined below according to World [place] Organization (WHO) criteria with a high fracture risk. There has been worsening of bone density since the previous examination. Reference Information: The T-score is the number of standard deviations above or below the standard which is normal for young adults at their peak bone mineral density. The World Health Organization (WHO) interprets the T-scores as follows: Above -1 Normal bone density Between -1 and -2.5 Osteopenia Equal to / or below -2.5 Osteoporosis As a practical clinical guideline, osteopenia may be graded as follows: Mild -1 through -1.5 Moderate -1.6 through -2.0 Severe -2.1 through -2.4 The Z-score is the number of standard deviations above or below age-matched controls. A Z-score of less than -1.5 would be considered abnormal. References: 1. NIH Osteoporosis and Related Bone Diseases www osteo.org 2. International Society for Clinical Densitometry www iscd.org 3. National Osteoporosis Foundation www nof.org Electronically Signed: Carlos Torres MD at 14:31 EDT ,
== END | disposition home or self-care (01) ==
LOC: OPBD 13:41
PROVIDERS: PCP Family Medicine; Visit Provider Orthopaedic Surgery
DX: M85.80 Other specified disorders of bone density and structure, unspecified site (principal); M81.0 Age-related osteoporosis without current pathological fracture; Z78.0 Asymptomatic menopausal state
CPT/HCPCS: 77080

== ENCOUNTER → 2021-06-27 | Outpatient (CLI) | payer MEDICARE, OTHER, SELFPAY ==
[2021-06-27 12:33] LABS: Vitamin D,25 Hydroxy 13.5 ng/mL
== END | disposition home or self-care (01) ==
LOC: MFPLAB 09:56
PROVIDERS: PCP Family Medicine; Visit Provider Family Medicine
DX: M81.8 Other osteoporosis without current pathological fracture (principal)
CPT/HCPCS: 36415; 82306

== ENCOUNTER 2021-08-10 17:54 | Emergency (ER) | payer MEDICARE, OTHER, SELFPAY ==
[2021-08-10 17:54] VITALS: BP 124/65; PULSE 80; RESP 16; TEMP 36.6; O2SAT 100; BMI 32.1
--- NOTE | 2021-08-10 18:40 | RAD_ITS ---
STUDY: X-RAY - LEFT ANKLE REASON FOR EXAM: Female, 76 years old. pain/swelling TECHNIQUE: 3 view(s) of the ankle. COMPARISON: None. FINDINGS: Normal visualized distal tibia and fibula. Normal medial and lateral malleoli. Normal tibiotalar articulation and ankle mortise. Normal visualized talus and calcaneus. The visualized subtalar, talonavicular, calcaneocuboid and tarsal articulations are normal. The soft tissue structures are unremarkable. RAD/Ankle min 3 Views IMPRESSION: Normal x-ray examination of the ankle. Electronically Signed: Christopher Schultz MD at 19:10 EDT ,
--- NOTE | 2021-08-10 19:19 | EDS_ITS ---
HPI History of Present Illness Chief Complaint: Lower Extremity Injury Informant: patient Narrative Narrative: Postop day diet for lumbar microdiscectomy and transforaminal to me by Dr. Conner Lindsey. She is fairly ambulate with a walker she still has radicular pain on her right side she compensates with her left side. More so since surgery. Nontraumatic left ankle swelling since yesterday. No fevers. Pain with palpation. Denies calf or thigh pain. No anticoagulation medications. PFSH PFSH Medical History Back pain Chest pain Coronary artery vasospasm GERD (gastroesophageal reflux disease) Incontinence Neck pain Nonrheumatic mitral (valve) insufficiency Pericardial effusion Transient visual loss of right eye Home Medications artifi.tears(hypromellose)(PF) 0.3 % eye drops 1 drp ophthalmic (eye) 4-8XD PRN Dry Eye 04/29/18 [History Last Taken Unknown] triamcinolone acetonide 0.1 % dental paste 1 applic dental BID 04/29/18 [History Last Taken Unknown] ibuprofen 200 mg tablet 800 mg PO DAILY PRN Pain 06/12/19 [History Last Taken Unknown] acetaminophen 500 mg tablet 1,000 mg PO DAILY 12/08/19 [History Last Taken Unknown] sertraline 50 mg tablet 25 mg PO DAILY PRN for fibromyalgia 12/08/19 [History Last Taken Unknown] ondansetron 4 mg disintegrating tablet 4 mg PO Q8H PRN nausea and vomiting #10 tabs 10/27/20 [Rx Last Taken Unknown] isosorbide dinitrate 10 mg tablet 10 mg PO BID #60 tabs 05/01/21 [Rx Last Taken Unknown] nitroglycerin 0.4 mg sublingual tablet 0.4 mg sublingual Q5-15M PRN chest pain #25 tabs 05/01/21 [Rx Last Taken Unknown] Allergy/AdvReac Type Severity Reaction Status Date / Time ciprofloxacin [From Ciloxan] AdvReac Severe Eye Verified 08/10/21 17:56 Drops_burning and redness nifedipine AdvReac Severe SOB and Verified 08/10/21 17:56 severe foot swelling diltiazem AdvReac Intermediate Severe Verified 08/10/21 17:56 fatigue Family History Father , Age 78 CAD (coronary artery disease) Hypertension Mother , Age 41 from brain aneurysm rupture Brain aneurysm Surgical History History of appendectomy History of History of cataract surgery History of cholecystectomy History of hysterectomy History of laparoscopy History of left heart catheterization (05/05/18) History of medial meniscus repair of right knee (~10/2019) History of surgical removal of ganglion cyst Social History Smoking Status: Never smoker alcohol intake: never substance use type: does not use caffeine: Yes Type: carbonated beverages Number of servings: 6 and coffee Number of servings: 2 ROS ROS ED Constitutional Constitutional ED: Denies chills, fever(s) or sweats Eyes Eyes: Denies change in vision ENT ENT ED: Denies dysphagia or sore throat Cardiovascular Cardiovascular: Denies chest pain, leg edema, palpitations or racing heartbeat Respiratory/Chest Respiratory/Chest: Denies cough, dyspnea or dyspnea on exertion Gastrointestinal Gastrointestinal: Denies abdominal pain, diarrhea, nausea or vomiting Genitourinary Genitourinary ED: Denies dysuria, hematuria or urinary frequency Musculoskeletal Musculoskeletal: Reports other Details: Left ankle swelling ; Denies back pain, extremity pain or neck pain Integumentary Denies rash or wounds Neurologic Neurologic: Denies headache(s), paresthesias or weakness EXAM Physical Exam Const Vital Signs: 08/10/21 17:54 08/10/21 19:31 Temperature 97.9 F Temperature Source Temporal Pulse Rate 80 Respiratory Rate 16 16 Blood Pressure 124/65 H Blood Pressure Mean 84 Pulse Ox 100 Oxygen Delivery Method Room Air Positive well nourished and well developed General Appearance ED: well developed and NAD HEENT Reports moist mucous membranes normocephalic and atraumatic Eyes PERRL, EOMs intact bilaterally and conjunctivae normal General Eye ED: Yes normal appearance of both eyes Neck no lymphadenopathy and supple General: Negative for tenderness Chest Wall Chest: Negative for tenderness Resp normal respiratory effort and normal air movement Effort and Inspection: symmetric chest movement; Negative for respiratory distress Cardio regular rate, regular rhythm and no murmurs Peripheral Pulses: pulses 2+ throughout GI normal to inspection, nondistended, normoactive bowel sounds and non-tender Palpation: Negative for guarding or rebound tenderness present Back/Spine no CVA tenderness and no thoracic nor lumbar tenderness Back/Spine Narrative: Lower lumbar incision to the right with stitches and Steri-Strips dry blood however no drainage no erythema. Extremity Extremity Narrative: Left lower extremity. No medial thigh or calf tenderness. There was tenderness at the insertion of the Achilles with no defects. There is swelling along the deltoid ligament of the ankle. There is no warmth. No pain with range of motion. No midfoot or proximal fifth base tenderness. Neuro vas intact distally. General Extremety ED: Negative for edema or tenderness General Extremity: Negative for edema Neuro oriented x3 and no sensory deficits noted Sensorium / Orientation: awake and alert Skin no rashes or lesions noted and no wounds MDM MDM MDM Narrative Medical decision making narrative: Three-view x-ray left ankle reviewed by myself read by radiology shows no acute process. Labs provided, discussed Achilles tendinitis with likely inflammatory response. There is no current ultrasound available however low suspicion for DVT without calf or thigh tenderness. She will be ordered outpatient ultrasound to return tomorrow for further evaluation for reassurance. She will continue her home Vicodin. She will continue with her walker. All questions were answered. Radiography Diagnostic Testing: Clinical Impression(s) from Imaging Studies Ankle X-Ray 08/10/21 18:40 IMPRESSION: Normal x-ray examination of the ankle. Electronically Signed: Christopher Schultz MD at 19:10 EDT Reading Location ID and State: [address] [place] [address] Tel , Service support , Discharge Plan Triage Chief Complaint: Lower Extremity Injury ED Provider: Colt Carranza Dx/Rx/DC Orders Clinical Impression: Achilles tendinitis of left lower extremity, Left ankle swelling Instructions: Understanding Achilles Tendonitis Prescriptions: No Action artifi.tears(hypromellose)(PF) 0.3 % drops 1 drp OPHTHALMIC 4-8XD PRN (Reason: Dry Eye) triamcinolone acetonide 0.1 % paste 1 applic DENTAL BID sertraline 50 mg tablet 25 mg PO DAILY PRN (Reason: for fibromyalgia) ibuprofen 200 mg tablet 800 mg PO DAILY PRN (Reason: Pain) acetaminophen 500 mg tablet 1,000 mg PO DAILY isosorbide dinitrate 10 mg tablet 10 mg PO BID Qty: 60 11RF nitroglycerin 0.4 mg tablet, sublingual 0.4 mg SUBLINGUAL Q5-15M PRN (Reason: chest pain) Qty: 25 3RF Rx Instructions: until response; do not exceed 3 doses per episode ondansetron 4 mg tablet,disintegrating 4 mg PO Q8H PRN (Reason: nausea and vomiting) Qty: 10 0RF Other Ambulatory Orders: Venous Duplex US, Unilateral (Routine) Facility: [facility] - Location: [facility] Ordered By: Dr. Colt Carranza Primary Care Provider: Nori Hope Referrals: Nori Hope MD [Primary Care Provider] - Activity Restrictions/Additional Instructions: X-ray negative. Return tomorrow for ultrasound of your left lower extremity. Continue your home Vicodin as needed. Maintain Dez wrap and splint for comfort. Use your walker for stability. Disposition Disposition: Home, Self Care Discharge Date/Time: 08/10/21 19:33
[2021-08-10 19:31] VITALS: RESP 16
== END 2021-08-10 19:33 | disposition home or self-care (01) ==
PROVIDERS: Emergency Provider Emergency Medicine; PCP Family Medicine; Visit Provider Emergency Medicine
DX: M76.62 Achilles tendinitis, left leg (principal)
CPT/HCPCS: 73610; 99283

== ENCOUNTER → 2021-08-11 | Outpatient (CLI) | payer MEDICARE, OTHER, SELFPAY ==
--- NOTE | 2021-08-11 13:52 | VDLE_ITS ---
Reason For Study: swelling Procedure LEFT This is a venous duplex using B-mode, color GSV is normal. flow and spectral Doppler. CFV is compressible, spontaneous, phasic, Exam performed in department. competent, and demonstrates normal The exam was abbreviated due to the COVID 19 augmentation. protocol. FV is compressible, spontaneous, phasic, The exam was diagnostic. competent and demonstrates normal augmentation. POP V is compressible, spontaneous, phasic, competent and demonstrates normal augmentation. T/P Trunk is compressible. PTV is compressible. LT PerV is compressible. VL/Venous Duplex US, Unilateral Interpretation Summary There is no evidence of left lower extremity deep vein thrombosis. Left great s aphenous vein appears patent and compressible segmentally. Abbreviated COVID-19 protocol utilized Ordering Physician: Colt Carranza Performed By: Bhavik Lai RVT
== END | disposition home or self-care (01) ==
PROVIDERS: PCP Family Medicine; Referring Provider Emergency Medicine; Visit Provider Emergency Medicine
DX: R60.0 Localized edema (principal)
CPT/HCPCS: 93971

== ENCOUNTER → 2021-11-14 | Outpatient (CLI) | payer MEDICARE, OTHER, SELFPAY ==
--- NOTE | 2021-11-14 07:24 | BI_ITS ---
MAMMOGRAPHY - BILATERAL SCREENING REASON FOR EXAM: Female, 76 years old. Routine annual screening examination. PERTINENT HISTORY: Non-contributory. TECHNIQUE: Digital bilateral breast zhane (3D mammographic acquisition) in the CC and MLO projections. 2-D mediolateral oblique (MLO) and craniocaudad (CC) views of both breasts were obtained. CAD: Full Field Digital Mammography with Computer Added Detection was performed. COMPARISON: Comparison is made with prior study of 11/05/2020 and 06/16/2019. FINDINGS: Breast Composition: The breasts are heterogeneously dense, which may obscure small masses. There are no dominant masses or suspicious calcifications. Stable small bilateral axillary lymph nodes. No other significant abnormalities are identified. There has been no significant change since the prior study. BI/SCRN MAMM (CAD)W/ZHANE BILAT IMPRESSION: Stable bilateral screening mammogram. Yearly follow-up mammogram recommended. (A) ASSESSMENT CATEGORY: BIRADS Category 2: Benign. A letter regarding these results will be sent to the patient by the facility within 30 days. Approximately 10% of breast cancers are not detected by mammography. A normal mammogram should not delay biopsy of a clinically suspicious abnormality. [id number] Electronically Signed: Carlos Torres MD at 10:00 EDT ,
== END | disposition home or self-care (01) ==
LOC: OPBI 07:22
PROVIDERS: PCP Family Medicine; Visit Provider Family Medicine
DX: Z12.31 Encounter for screening mammogram for malignant neoplasm of breast (principal)
CPT/HCPCS: 77063; 77067

== ENCOUNTER → 2021-11-24 | Outpatient (CLI) | payer MEDICARE, OTHER, SELFPAY ==
--- NOTE | 2021-11-24 07:52 | CT_ITS ---
STUDY: CT FACIAL BONES WITHOUT CONTRAST REASON FOR EXAM: Female, 76 years old. PAROSMIA. Blurred vision. RADIATION DOSAGE (If Supplied By Facility): CTDIvol = ( 33.06 ) mGy, DLP = ( 833.85 ) mGycm TECHNIQUE: The patient was scanned in a multi detector CT scanner. Sagittal and coronal images were reconstructed. Individualized dose optimization techniques were used for this CT. COMPARISON: None. FINDINGS: Normal soft tissue structures. Normal orbital rodríguez and orbital contents. Normal nasal bones and anterior nasal spine. Normal facial bones. There is no demonstrated fracture. Normal visualized paranasal sinuses. CT/Sinus/Facial Bone IMPRESSION: Normal unenhanced CT of the facial bones. Electronically Signed: Carlos Torres MD at 10:56 EDT ,
== END | disposition home or self-care (01) ==
LOC: CT 07:46
PROVIDERS: PCP Family Medicine; Visit Provider Otolaryngology Otolaryngology/Facial Plastic Surgery
DX: R43.1 Parosmia (principal)
CPT/HCPCS: 70486

== ENCOUNTER → 2021-11-28 | Outpatient (CLI) | payer MEDICARE, OTHER, SELFPAY ==
--- NOTE | 2021-11-28 16:38 | MRI_ITS ---
EXAM: MR RIGHT LOWER EXTREMITY WITHOUT INTRAVENOUS CONTRAST, HIP CLINICAL INDICATION: TROCHANTERIC BURSITIS, RIGHT HIP;RIGHT HIP PAIN TECHNIQUE: Multiplanar and multisequence MR images of the right hip without intravenous contrast. This report was created using [employer] report generation technology. COMPARISON: 01/29/[address] of 10.27.20 FINDINGS: TENDONS: FLEXORS: Unremarkable. Intact. EXTENSORS/HAMSTRING: There is a fluid signal seen at the origin of the common hamstring tendons on the ischial tuberosity on the left. There is minimal intrasubstance tear on the left. There is a fluid signal seen at the origin of the common hamstring tendons on the ischial tuberosity on the right. There is minimal intrasubstance tear on the right. ABDUCTORS: Unremarkable. Intact. ADDUCTORS: Unremarkable. Intact. ROTATORS: Unremarkable. Intact. MUSCLES: Unremarkable. Normal bulk and signal. FLUID: There is insertional tendinosis of the left and right gluteus christiano muscle with a small trochanteric bursal fluid collection in this region. On coronal image 12 series 5. Se 5 IM: 14. No joint effusion. LABRUM: Unremarkable. No evidence of a tear on this non-arthrogram exam. CARTILAGE: Unremarkable. Articular cartilage intact. BONES/JOINTS: See above. OTHER SOFT TISSUES: Right sided paraspinal soft tissue edema at the level of L4 and L5. This may represent an intramuscular tear. Subcutaneous edema overlying both hips. REPRODUCTIVE: Stable right adnexal cyst. MRI/Lower Ext Joint Only (Routine) IMPRESSION: 1. Right sided paraspinal soft tissue edema at the level of L4 and L5. This may represent an intramuscular tear. 2. Stable right adnexal cyst. 3. Subcutaneous edema overlying both hips. 4. Bilateral minimal intrasubstance tear at the origin of the common hamstring tendons on the ischial tuberosity. The right sided findings is new. 5. There is insertional tendinosis of the left and right gluteus christiano muscle with bursitis. This is new on the right. Electronically Signed: Darinel Young MD at 19:42 EDT ,
== END | disposition home or self-care (01) ==
LOC: MRI 16:30
PROVIDERS: PCP Family Medicine; Visit Provider Specialist
DX: S76.311A Strain of muscle, fascia and tendon of the posterior muscle group at thigh level, right thigh, initial encounter (principal); S76.312A Strain of muscle, fascia and tendon of the posterior muscle group at thigh level, left thigh, initial encounter; X58.XXXA Exposure to other specified factors, initial encounter; M76.02 Gluteal tendinitis, left hip; M76.01 Gluteal tendinitis, right hip; M70.61 Trochanteric bursitis, right hip; G89.29 Other chronic pain
CPT/HCPCS: 73721

== ENCOUNTER → 2021-12-03 | Outpatient (CLI) | payer MEDICARE, OTHER, SELFPAY ==
--- NOTE | 2021-12-03 07:23 | CT_ITS ---
STUDY: CT BRAIN WITH AND WITHOUT CONTRAST REASON FOR EXAM: Female, 76 years old. Mental status change RADIATION DOSAGE (If Supplied By Facility): CTDIvol = ( 44.99 ) mGy, DLP = ( 1614.72 ) mGycm TECHNIQUE: Transaxial CT imaging of the brain was performed pre and post contrast administration. The examination was performed with intravenous administration of IV 50mL Isovue-370. Individualized dose optimization techniques were used for this CT. COMPARISON: None. FINDINGS: Normal soft tissue structures. Normal calvarium. Normal size ventricles and extra-axial spaces for the patient''s age. Normal white matter tracts of the cerebral hemispheres. Normal basal ganglia and thalami. Normal brainstem. Normal cerebellum. There is no intracranial hemorrhage. There are no findings of an acute ischemic infarction. Normal visualized paranasal sinuses. No suspicious enhancing lesion after contrast administration. CT/Brain/Head W/WO Contrast IMPRESSION: Age consistent changes, no acute findings, or suspicious enhancing lesion Electronically Signed: Onur Tate MD at 8:48 EDT ,
[2021-12-03 08:05] LABS: CREATININE FINGERSTICK < 0.9 mg/dL (0.55-1.02); EGFR FINGERSTICK > 60.0000 mL/min (>60)
== END | disposition home or self-care (01) ==
LOC: CT 07:22
PROVIDERS: PCP Family Medicine; Visit Provider Otolaryngology Otolaryngology/Facial Plastic Surgery
DX: R43.1 Parosmia (principal)
CPT/HCPCS: 70470; Q9967

== ENCOUNTER → 2022-02-18 | Outpatient (CLI) | payer MEDICARE, OTHER, SELFPAY ==
[2022-02-18 12:44] LABS: Absolute Lymphocyte Count 1.05 X10^3/uL (0.83-4.51); Absolute Neutrophil Count 5.4 X10^3/uL (2.0-7.7); Basophil# 0.07 X10^3/uL; Eosinophils% 5.4 % (0-5); Hematocrit 42.6 % (37-47); Hemoglobin 13.2 g/dL (12.0-15.0); Lymphocyte # 1.05 X10^3/ul (0.83-4.51); Lymphocyte % 14.3 % (19-41); Mean Corpuscular Volume 96.8 fL (81-99); Mean Platelet Vol. 10.4 fl (6.2-12.0); Monocyte# 0.43 X10^3/uL; Monocyte% 5.9 % (0-10); NRBC Flagged by Analyzer 0 % (0-5); Neutrophil # 5.37 X10^3/uL (2.7-7.7); Neutrophil % 73.1 % (47-70); Platelet Count 253 K/mm3 (150-450); RBC Distribution Width CV 13.5 % (11.6-14.6); RBC Distribution Width SD 48.2 fl (35.1-43.9); White Blood Count 7.3 K/mm3 (4.4-11.0)
[2022-02-18 13:37] LABS: Albumin, Serum 3.7 g/dL (3.2-5.0); BUN 11 mg/dL (7-18); BUN/Creat Ratio 14.6 RATIO (10-20); Creatinine, Serum 0.76 mg/dL (0.55-1.02); EST Glomerular Filtration Rate 79 mL/min (>60); Est Glom Filt Rate - Afr Amer 96 mL/min (>60); Glucose 89 mg/dL (74-106); Protein, Total 6.1 g/dL (6.4-8.2)
[2022-02-18 13:38] LABS: ALB/GLOB Ratio 1.5 RATIO (0.9-2.4); AST(SGOT) 18 U/L (15-37); Alanine Aminotransfer ALT/SGPT 17 U/L (13-56); Alkaline Phosphatase 79 U/L (45-117); Anion Gap 6 (5-15); Calcium,Total 8.9 mg/dL (8.5-10.1); Chloride 112 mmol/L (98-107); Globulin 2.4 g/dL (2.2-4.2); Potassium 4.4 mmol/L (3.5-5.1); Sodium Level 143 mmol/L (136-145)
== END | disposition home or self-care (01) ==
LOC: MFPLAB 10:54
PROVIDERS: PCP Family Medicine; Visit Provider Family Medicine
DX: Z01.812 Encounter for preprocedural laboratory examination (principal)
CPT/HCPCS: 36415; 80053; 85025

== ENCOUNTER 2022-03-05 15:17 | Inpatient (IN) | payer MEDICARE, OTHER, SELFPAY ==
[2022-03-05 15:21] VITALS: BP 152/74; PULSE 91; RESP 16; TEMP 36.6; O2SAT 97; BMI 35.6
[2022-03-05] MEDS: Isosorbide DN 10 MG Tablet PO (18:04)
--- NOTE | 2022-03-05 19:54 | HP.PCM_ITS ---
HPI - General General Date of Admission: 03/05/22 Date of Service: 03/05/22 Chief Complaint: Here for rehabilitation. HPI Narrative HAYDER PETERS, is a 76 Female who presents with followin03/04/2021 Dr. Velazquez performed right endoscopic hamstring repair. 03/05/2021 Admit to TCU with debility, here for rehabilitation, strengthening, prior to discharge home with . [facility] Medical History Back pain Chest pain Coronary artery vasospasm GERD (gastroesophageal reflux disease) Incontinence Neck pain Nonrheumatic mitral (valve) insufficiency Pericardial effusion Transient visual loss of right eye Home Medications artifi.tears(hypromellose)(PF) 0.3 % eye drops 1 drp ophthalmic (eye) 4-8XD PRN Dry Eye 04/29/18 [History Last Taken Unknown] triamcinolone acetonide 0.1 % dental paste 1 applic dental BID Dental 04/29/18 [History Last Taken Unknown] ibuprofen 200 mg tablet 800 mg PO DAILY PRN Pain 06/12/19 [History Last Taken Unknown] acetaminophen 500 mg tablet 1,000 mg PO DAILY Pain 12/08/19 [History Last Taken Unknown] sertraline 50 mg tablet 25 mg PO DAILY PRN for fibromyalgia 12/08/19 [History Last Taken Unknown] ondansetron 4 mg disintegrating tablet 4 mg PO Q8H PRN nausea and vomiting #10 tabs 10/27/20 [Rx Last Taken Unknown] nitroglycerin 0.4 mg sublingual tablet 0.4 mg sublingual Q5-15M PRN chest pain #25 tabs 05/01/21 [Rx Last Taken Unknown] cholecalciferol (vitamin D3) 50 mcg (2,000 unit) capsule 2,000 unit PO DAILY Supplement 12/12/21 [History Last Taken Unknown] aspirin 325 mg tablet 325 mg PO DAILY Heart 03/05/22 [History Last Taken Unknown] docusate sodium 100 mg capsule 100 mg PO DAILY Constipation 03/05/22 [History Last Taken Unknown] famotidine 10 mg tablet 10 mg PO BID PRN Heart Burn 03/05/22 [History Last Taken Unknown] isosorbide dinitrate 10 mg tablet 10 mg PO BID Heart 03/05/22 [History Last Taken Unknown] naproxen 500 mg tablet 500 mg PO DAILY PRN Pain 03/05/22 [History Last Taken Unknown] oxycodone-acetaminophen 5 mg-325 mg tablet (Percocet) 1 tab PO Q6H PRN Pain 03/05/22 [History Last Taken Unknown] Allergy/AdvReac Type Severity Reaction Status Date / Time ciprofloxacin [From Ciloxan] AdvReac Severe Eye Verified 12/12/21 08:28 Drops_burning and redness nifedipine AdvReac Severe SOB and Verified 12/12/21 08:28 severe foot swelling diltiazem AdvReac Intermediate Severe Verified 12/12/21 08:28 fatigue Family History Father , Age 78 CAD (coronary artery disease) Hypertension Mother , Age 41 from brain aneurysm rupture Brain aneurysm Surgical History History of appendectomy History of History of cataract surgery History of cholecystectomy History of hysterectomy History of laparoscopy History of left heart catheterization (05/05/18) History of medial meniscus repair of right knee (~10/2019) History of surgical removal of ganglion cyst Social History (Updated 03/05/22 @ 19:[address] Nikunj Villa MD) household members: spouse Smoking Status: Never smoker alcohol intake: never substance use type: does not use caffeine: Yes Type: carbonated beverages Number of servings: 6 and coffee Number of servings: 2 ROS Constitutional Constitutional: Denies chills, fever(s) or weight gain ENT HEENT: Denies headache(s), nasal congestion or nasal discharge Cardiovascular Cardiovascular: Denies chest pain or palpitations Respiratory/Chest Respiratory/Chest: Denies cough, excessive phlegm production or shortness of breath with exertion Gastrointestinal Gastrointestinal: Denies abdominal pain, nausea or vomiting Genitourinary Genitourinary: Denies dysuria Musculoskeletal Musculoskeletal: Denies joint pain or joint swelling Integumentary Integumentary: Denies rash or wounds Neurologic Neurologic: Denies focal weakness, numbness or tingling Psychiatric Psychiatric: Denies anxiety, auditory hallucinations, depression, homicidal ideation or suicidal ideation Vital Signs Vital Signs Vital Signs: 03/05/22 15:21 Temperature 97.8 F Temperature Source Temporal Pulse Rate 91 Respiratory Rate 16 Blood Pressure 152/74 H Blood Pressure Mean 100 Blood Pressure Source Monitor Blood Pressure Position Semi-Fowlers Blood Pressure Location Left Arm Pulse Ox 97 Oxygen Delivery Method Room Air Weight Weight: 80.195 kg Body Mass Index (BMI) 35.6 Physical Exam Const alert General Appearance: cooperative HEENT normocephalic Eyes PERRL and EOMs intact bilaterally Neck supple, no JVD and no carotid bruits Resp normal respiratory effort, normal air movement and clear to auscultation bilaterally Cardio regular rate and regular rhythm GI normal to inspection, nondistended, normoactive bowel sounds, non-tender and non-distended Extremity normal capillary refill General Extremity: Negative for edema Skin no rashes or lesions noted General Skin Exam: no breakdown Psych affect normal Appearance: appropriate Results Lab / Micro Data Micro: Microbiology 03/05/22 15:57 Nasal Secretion SARS-CoV-2 Antigen (Rapid) - Final Assessment & Plan Assessment/Plan (1) Debility: (2) Tear of right hamstring: (3) Depression: (4) Vitamin D deficiency: (5) Coronary artery vasospasm: PLAN: Plan 76 year old female with below past medical history underwent right endoscopic hamstring repair 03/04/[address] Velazquez, admitted to TCU with debility, here for rehabilitation, strengthening, prior to discharge home with . * Debility - PT/OT. * Pain - Tylenol 500mg q4h prn, Motrin 600mg q6h prn, Naproxen 500mg daily prn, Oxycodone 5mg q6h prn. * Bowel - Senna/colace 1 tablet bid, MOM 30ml po x 1 prn. * Adult immunization - Administer pneumonia vaccine, covid19 vaccine, flu vaccine as appropriate. * DVT prophylaxis - Aspirin 325mg daily. * Coronary artery vasospasm - Isordil 10mg bid, Aspirin 325mg daily. * GERD - Famotidine 10mg bid prn. * Nausea - Zofran 8mg q8h prn. * Depression - Sertraline 25mg daily, stable chronic medical terminologist use, GDR not recommended. * Vitamin D deficiency - D3 50mcg daily.
[2022-03-05 22:00] VITALS: PULSE 68; RESP 16; O2SAT 97
[2022-03-05] MEDS: Acetaminophen 500 MG Tablet PO (22:41)
[2022-03-06] MEDS: Ondansetron ODT 4 MG Tablet PO (02:52)
--- NOTE | 2022-03-06 02:58 | NURSING ---
Patient c/o nausea. Continues to be flushed in face. Temperature orally 98.5. Zofran administered at this time. Will continue to monitor.
[2022-03-06 05:42] LABS: Absolute Lymphocyte Count 1.62 X10^3/uL (0.83-4.51); Absolute Neutrophil Count 5.8 X10^3/uL (2.0-7.7); Basophil# 0.07 X10^3/uL; Basophil% 0.8 % (0-1); Eosinophil# 0.47 X10^3/uL; Eosinophils% 5.4 % (0-5); Hematocrit 37.4 % (37-47); Lymphocyte # 1.62 X10^3/ul (0.83-4.51); Lymphocyte % 18.5 % (19-41); Mean Corp Hgb Conc 32.1 g/dL (32-36); Mean Corpuscular Hgb 30.5 pg (27.0-32.0); Mean Corpuscular Volume 94.9 fL (81-99); Mean Platelet Vol. 9.8 fl (6.2-12.0); Monocyte# 0.72 X10^3/uL; Monocyte% 8.2 % (0-10); NRBC Flagged by Analyzer 0 % (0-5); Neutrophil # 5.83 X10^3/uL (2.7-7.7); Neutrophil % 66.8 % (47-70); Platelet Count 198 K/mm3 (150-450); RBC Distribution Width CV 13.3 % (11.6-14.6); RBC Distribution Width SD 47.1 fl (35.1-43.9); Red Blood Count 3.94 M/mm3 (4.2-5.4); White Blood Count 8.7 K/mm3 (4.4-11.0)
[2022-03-06] MEDS: Isosorbide DN 10 MG Tablet PO ×2 (05:45→16:58)
[2022-03-06] MEDS: Acetaminophen 500 MG Tablet PO ×2 (05:49→10:18)
[2022-03-06 06:09] LABS: Anion Gap 5 (5-15); BUN 6 mg/dL (7-18); Calcium,Total 8.2 mg/dL (8.5-10.1); Chloride 113 mmol/L (98-107); Creatinine, Serum 0.75 mg/dL (0.55-1.02); EST Glomerular Filtration Rate 80 mL/min (>60); Est Glom Filt Rate - Afr Amer 97 mL/min (>60); Estimated Creatinine Clearance 62.49 ml/min; Glucose 91 mg/dL (74-106); Sodium Level 144 mmol/L (136-145)
[2022-03-06] MEDS: Sertraline 50 MG Tablet 25 MG PO (07:27)
[2022-03-06] MEDS: Aspirin 325 MG Tablet PO (07:27)
[2022-03-06] MEDS: Naproxen 500 MG Tablet PO (08:51)
[2022-03-06] MEDS: Tuberculin,Purif.prot.deriv. 50 TU/ML Vial 0.1 ML ID (10:15)
--- NOTE | 2022-03-06 10:41 | NURSING ---
Mixing Place Supervisor Note; Activity Asset: Christiano Silver is independent in her choice of daily activities. She has her tablet, smartphone and books from home. Adrianne stated she will read the newspaper if offered. Adrianne is vey pleasant and eager to do therapy so she can get home.
--- NOTE | 2022-03-06 13:10 | CASEMGMT ---
Social Work Met with patient to complete initial assessment. Introduced self and role. Verified contacts. Discussed code status and MOLST form. Pt confirms full code. MOLST placed in [employer]. Educated to Medicare benefit. Pt states she is ready to DC home. She would like another day of therapy to practice steps then DC. SW educated to pt not able to receive therapy and DC on the same day d/t insurance coverage. Pt electing to DC 03/08. IDT agreeable. Pt denies any needs. will transport. Plan: DC home with 03/08, no needs BORA Acosta NEIGHBORHOOD COORDINATOR
--- NOTE | 2022-03-06 13:39 | CASEMGMT ---
Social Work BIMS () and PHQ-9 (05/11) completed for MDS assessment. Yadira Juarez MSW STORE FACILITY TECHNICIAN
--- NOTE | 2022-03-06 13:47 | DS.PCM_ITS ---
Providers Date of Admission: 03/05/22 Primary Care Physician: Dr. Nori Hope MD Reason For Visit: R ENDOSCOPIC HAMSTRING REPAIR Diagnosis Discharge Diagnosis (1) Debility: Status: Acute Code(s): R53.81 - Other malaise (2) Tear of right hamstring: Status: Acute Code(s): S76.311A - Strain of muscle, fascia and tendon of the posterior muscle group at thigh level, right thigh, initial encounter (3) Depression: Status: Acute Code(s): F32.A - Depression, unspecified (4) Vitamin D deficiency: Status: Acute Code(s): E55.9 - Vitamin D deficiency, unspecified (5) Coronary artery vasospasm: Status: Acute Code(s): I20.1 - Angina pectoris with documented spasm Plan 76 year old female with below past medical history underwent right endoscopic hamstring repair 03/04/[address] Velazquez, admitted to TCU with debility, here for rehabilitation, strengthening, prior to discharge home with . * Debility - PT/OT. * Pain - Tylenol 500mg q4h prn, Motrin 600mg q6h prn, Naproxen 500mg daily prn, Oxycodone 5mg q6h prn. * Bowel - Senna/colace 1 tablet bid, MOM 30ml po x 1 prn. * Adult immunization - Administer pneumonia vaccine, covid19 vaccine, flu vaccine as appropriate. * DVT prophylaxis - Aspirin 325mg daily. * Coronary artery vasospasm - Isordil 10mg bid, Aspirin 325mg daily. * GERD - Famotidine 10mg bid prn. * Nausea - Zofran 8mg q8h prn. * Depression - Sertraline 25mg daily, stable chronic long-term use, GDR not recommended. * Vitamin D deficiency - D3 50mcg daily. Medications at Discharge Home Medications artifi.tears(hypromellose)(PF) 0.3 % eye drops 1 drp ophthalmic (eye) 4-8XD PRN Dry Eye 04/29/18 triamcinolone acetonide 0.1 % dental paste 1 applic dental BID Dental 04/29/18 sertraline 50 mg tablet 25 mg PO DAILY PRN for fibromyalgia 12/08/19 nitroglycerin 0.4 mg sublingual tablet 0.4 mg sublingual Q5-15M PRN chest pain #25 tabs 05/01/21 aspirin 325 mg tablet 325 mg PO DAILY Heart 03/05/22 isosorbide dinitrate 10 mg tablet 10 mg PO BID Heart 03/05/22 acetaminophen 500 mg tablet 1,000 mg PO Q6H PRN PRN Pain Score 1-5 #0 tabs 03/06/22 naproxen 500 mg tablet 500 mg PO BREAKFAST #0 tabs 03/06/22 ondansetron 4 mg disintegrating tablet 4 mg PO Q8H PRN nausea and vomiting 7 days #21 tabs 03/06/22 Hospital Course Operations - (Endoscopic right hamstring repair.) Procedures None Summary of Care Provided Minutes Spent on Discharge: 35 Hospital Course: 76 year old female with below past medical history underwent right endoscopic hamstring repair 03/04/[address] Velazquez, admitted to TCU with debility, here for rehabilitation, strengthening, prior to discharge home with . Discharge home with 03/08/2022, No needs. Physical Exam Const alert General Appearance: cooperative HEENT normocephalic Eyes PERRL and EOMs intact bilaterally Neck supple, no JVD and no carotid bruits Resp normal respiratory effort, normal air movement and clear to auscultation bilaterally Cardio regular rate and regular rhythm GI normal to inspection, nondistended, normoactive bowel sounds, non-tender and non-distended Extremity normal capillary refill General Extremity: Negative for edema Skin no rashes or lesions noted General Skin Exam: no breakdown Psych affect normal Appearance: appropriate Weight / BMI Weight Weight: 80.195 kg Body Mass Index (BMI) 35.6 ABG / Lab / Microbiology Data Result Diagrams: 03/06/22 05:25 03/06/22 05:25 Laboratory: Laboratory Results - last 24 hr 03/06/22 05:25: WBC 8.7, RBC 3.94 L, Hgb 12.0, Hct 37.4, MCV 94.9, MCH 30.5, MCHC 32.1, RDW Std Deviation 47.1 H, RDW Coeff of Luis Fernando 13.3, Plt Count 198, MPV 9.8, Immature Gran % (Auto) 0.300, Neut % (Auto) 66.8, Lymph % (Auto) 18.5 L, [place] % (Auto) 8.2, Eos % (Auto) 5.4 H, Baso % (Auto) 0.8, Absolute Neuts (auto) 5.8, Absolute Lymphs (auto) 1.62, Nucleated RBC % 0 03/06/22 05:25: Sodium 144, Potassium 4.0, Chloride 113 H, Carbon Dioxide 26.0, Anion Gap 5, BUN 6 L, Creatinine 0.75, Estim Creat Clear Calc 62.49, Est GFR (MDRD) Af Amer 97, Est GFR (MDRD) Non-Af 80, BUN/Creatinine Ratio 8.0 L, Glucose 91, Calcium 8.2 L Microbiology: Microbiology 03/05/22 15:57 Nasal Secretion SARS-CoV-2 Antigen (Rapid) - Final D/C Instructions Discharge Diet: No restrictions Discharge Activity: Return to Normal Activity, May Shower and Use Walker Weight Bearing Status: No weight bearing (Right lower extremity.) Call your doctor if you observe: Fever of 101 or Higher, Inability to urinate, Inability to have a bowel movement, Shortness of breath, Dizziness, Fainting spells, Swelling in the ankles, Chest pain and Uncontrolled pain Additional Instructions: Discharge home with 03/08/2022, No needs. Please Follow Up With: Don Velazquez MD When: As scheduled. Meaningful Use Info Meaningful Use Diagnoses (Choose all that apply): None applicable Discharge Plan Admission Admit Date/Time: 03/05/22 15:17 Primary Reason for Your Visit: Debility. Attending Provider: Nikunj Villa Chi Primary Care Provider: Nori Hope Instructions Additional Instructions / Restrictions: Discharge home with 03/08/2022, No needs. Discharge Orders/Prescriptions Prescriptions: New acetaminophen 500 mg Tablet 1,000 mg PO Q6H PRN PRN (Reason: Pain Score 1-5) Qty: 0 0RF ondansetron 4 mg Tablet,Disintegrating 4 mg PO Q8H PRN (Reason: nausea and vomiting) 7 Days Qty: 21 0RF naproxen 500 mg Tablet 500 mg PO BREAKFAST Qty: 0 0RF Continued artifi.tears(hypromellose)(PF) 0.3 % drops 1 drp OPHTHALMIC 4-8XD PRN (Reason: Dry Eye) triamcinolone acetonide 0.1 % paste 1 applic DENTAL BID sertraline 50 mg tablet 25 mg PO DAILY PRN (Reason: for fibromyalgia) nitroglycerin 0.4 mg tablet, sublingual 0.4 mg SUBLINGUAL Q5-15M PRN (Reason: chest pain) Qty: 25 3RF Rx Instructions: until response; do not exceed 3 doses per episode aspirin 325 mg Tablet 325 mg PO DAILY isosorbide dinitrate 10 mg tablet 10 mg PO BID Discontinued ibuprofen 200 mg tablet 800 mg PO DAILY PRN (Reason: Pain) acetaminophen 500 mg tablet 1,000 mg PO DAILY cholecalciferol (vitamin D3) 50 mcg (2,000 unit) capsule 2,000 unit PO DAILY Rx Instructions: 2 tabs daily ondansetron 4 mg tablet,disintegrating 4 mg PO Q8H PRN (Reason: nausea and vomiting) Qty: 10 0RF famotidine 10 mg Tablet 10 mg PO BID PRN (Reason: Heart Burn) oxycodone-acetaminophen [Percocet] 5-325 mg Tablet 1 tab PO Q6H PRN (Reason: Pain) docusate sodium 100 mg Capsule 100 mg PO DAILY naproxen 500 mg Tablet 500 mg PO DAILY PRN (Reason: Pain) Referrals / Follow Up: Nori Hope MD [Primary Care Provider] - Disposition Disposition (needs filled in before D/C Order can be placed): Home, Self Care
--- NOTE | 2022-03-06 14:47 | PCM.PN.DRR ---
TCU RX Drug Regimen Review Subjective: Admitted with debility for rehab and strengthening prior to returning home. Objective: Allergies ciprofloxacin [From Ciloxan] Adverse Reaction (Severe, Verified 12/12/21 08:28) Eye Drops_burning and redness nifedipine Adverse Reaction (Severe, Verified 12/12/21 08:28) SOB and severe foot swelling diltiazem Adverse Reaction (Intermediate, Verified 12/12/21 08:28) Severe fatigue Current Medications Generic Name Dose Route Start Last Admin Trade Name Freq PRN Reason Stop Dose Admin Acetaminophen 1,000 mg 03/06/22 13:29 Acetaminophen 500 Mg Tablet PO Q6H PRN PRN Pain Score 1-5 Aspirin 325 mg 03/06/22 08:00 03/06/22 07:27 Aspirin 325 Mg Tablet PO 325 mg DAILYCM MIGUEL Administration Famotidine 10 mg 03/05/22 16:12 Famotidine 20 Mg Tablet PO BID PRN Heart Burn Isosorbide Dinitrate 10 mg 03/05/22 18:00 03/06/22 05:45 Isosorbide Dn 10 Mg Tablet PO 10 mg BID MIGUEL Administration Magnesium Hydroxide 30 ml 03/05/22 20:14 Magnesium Hydroxide 30 Ml Udc PO X1 PRN Constipation Naproxen 500 mg 03/06/22 08:30 03/06/22 08:51 Naproxen 500 Mg Tablet PO 500 mg BREAKFAST MIGUEL Administration Ondansetron HCl 4 mg 03/05/22 15:34 03/06/22 02:52 Ondansetron Odt 4 Mg Tablet PO 4 mg Q8H PRN Administration nausea and vomiting Oxycodone HCl 5 mg 03/05/22 16:10 Oxycodone 5 Mg Tablet PO Q6H PRN Pain Score 6-10 Senna/Docusate Sodium 1 tablet 03/05/22 20:15 03/06/22 05:46 Senna/Docusate Sodium 1 Tablet PO Not Given BID MIGUEL Sertraline HCl 25 mg 03/06/22 08:00 03/06/22 07:27 Sertraline 50 Mg Tablet PO 25 mg DAILY@0800 MIGUEL Administration Sodium Chloride 10 - 40 ml 03/05/22 15:43 0.9% Saline Lock 10 Ml Syringe IV UD PRN SALINE FLUSH Tuberculin PPD 0.1 ml 03/13/22 10:00 Tuberculin,Purif.Prot.Deriv. 50 Tu/Ml Vial ID 03/13/22 10:01 X1 ONE Problem List (Last Reviewed 03/05/22 @ 19:[address] Nikunj Villa MD) Coronary artery vasospasm (Acute) Vitamin D deficiency (Acute) Depression (Acute) Tear of right hamstring (Acute) Debility (Acute) Vital Signs Temp Pulse Resp BP Pulse Ox O2 Del Method 97.8 F 68 16 152/74 H 97 Room Air 03/05/22 15:21 03/05/22 22:00 03/05/22 22:00 03/05/22 15:21 03/05/22 22:00 03/06/22 12:26 Oxygen Delivery Method Room Air Weight: 80.195 kg Body Mass Index (BMI) 35.6 Sodium 144 mmol/L (136-145) 03/06/22 05:25 Potassium 4.0 mmol/L (3.5-5.1) 03/06/22 05:25 Chloride 113 mmol/L (98-107) H 03/06/22 05:25 Carbon Dioxide 26.0 mmol/L (21.0-32.0) 03/06/22 05:25 Anion Gap 5 (5-15) 03/06/22 05:25 BUN 6 mg/dL (7-18) L 03/06/22 05:25 Creatinine 0.75 mg/dL (0.55-1.02) 03/06/22 05:25 Est GFR (MDRD) Af Amer 97 mL/min (>60) 03/06/22 05:25 Est GFR (MDRD) Non-Af 80 mL/min (>60) 03/06/22 05:25 BUN/Creatinine Ratio 8.0 RATIO (10-20) L 03/06/22 05:25 Glucose 91 mg/dL (74-106) 03/06/22 05:25 Assessment/Plan: 1) Pain APAP 1000mg po q6h prn 1-5, oxycodone 5mg q6h prn 6-10, naproxen 500mg po daily. Has not received any prn doses. Pain has been described as 4/10 and aching. Continue to monitor pain scores, prn medication use. 2) DVT PPx Aspirin 325mg po daily. Continue to monitor for s/s bleeding/clot. 3) Coronary artery vasospasm Isosorbide Dinitrate 10mg BID, ASA. Blood pressure taken once was 152/74, HR 68-91, no chest pain recorded in assessments. Continue to monitor BP/HR, for chest pain. 4) GERD Famotidine 10mg po BID prn. Patient has not used any prn medication. Continue to monitor for GERD symptoms, prn medication use. 5) Nausea Ondansetron 4mg po q8h prn. Patient has used one prn dose. Please continue to monitor prn medication use, for further nausea. 6) Bowel MgOH prn and senna/s 1 tablet BID scheduled. Patient is refusing senna/s and has not used prn MgOH. Continue to monitor for constipation/diarrhea, prn medication use. Consider changing senna/s to prn. Assessment/Plan for indications treated with psychotropic medications: 7) Depression: sertraline 25mg PO daily. Please see physician note regarding GDR. Please continue to monitor for suicidal ideation (black box warning), falls/fractures (BEERs), weight gain and sodium (last 144mmol/L). Medical chart and medication regimen reviewed. The following medication irregularities or issues were identified: 8) Consider changing senna/s to prn. Date of Note:: 03/06/22
[2022-03-06 15:44] VITALS: BP 130/68; PULSE 84; RESP 19; TEMP 36.3; O2SAT 95
[2022-03-06] MEDS: Acetaminophen 500 MG Tablet 1000 MG PO (16:59)
[2022-03-07] MEDS: Isosorbide DN 10 MG Tablet PO ×2 (05:28→17:44)
[2022-03-07 05:30] VITALS: BP 130/75; PULSE 79
[2022-03-07] MEDS: Acetaminophen 500 MG Tablet 1000 MG PO ×2 (07:00→17:44)
[2022-03-07] MEDS: Sertraline 50 MG Tablet 25 MG PO (08:18)
[2022-03-07] MEDS: Aspirin 325 MG Tablet PO (08:18)
[2022-03-07] MEDS: Naproxen 500 MG Tablet PO (10:26)
[2022-03-07 14:00] VITALS: PULSE 64; RESP 16; O2SAT 97
[2022-03-07 16:00] VITALS: BP 159/78; PULSE 66; RESP 17; TEMP 36.3; O2SAT 97
--- NOTE | 2022-03-07 17:47 | NURSING ---
Surgical dressing removed this afternoon per order. 4 lap sites are well approximated, drainage on dressing but no active drainage noted at sites, minimal bruising around sites. Steri strips intact. Left open to air.
[2022-03-08] MEDS: Isosorbide DN 10 MG Tablet PO (06:03)
[2022-03-08] MEDS: Ondansetron ODT 4 MG Tablet PO (07:36)
[2022-03-08] MEDS: Sertraline 50 MG Tablet 25 MG PO (07:37)
[2022-03-08] MEDS: Acetaminophen 500 MG Tablet 1000 MG PO (07:37)
[2022-03-08] MEDS: Aspirin 325 MG Tablet PO (07:37)
[2022-03-08] MEDS: Naproxen 500 MG Tablet PO (09:26)
[2022-03-08 09:35] VITALS: PULSE 92; RESP 14; O2SAT 96
[2022-03-08 12:05] VITALS: BP 120/69; PULSE 94; RESP 16; TEMP 36.8; O2SAT 97
--- NOTE | 2022-03-09 09:03 | NURSING ---
Airport Location Manager Note; MDS for 03/08/2022 complete
--- NOTE | 2022-03-17 08:10 | MDS.RN ---
Information for the mds was obtained from review of the clinical record, interview of resident, staff, and direct observation of resident's care.
== END 2022-03-08 11:25 | disposition home or self-care (01) | DRG 560 ==
PROVIDERS: Admitting Provider Family Medicine Geriatric Medicine; PCP Family Medicine; Visit Provider Family Medicine Geriatric Medicine
DX: Z47.89 Encounter for other orthopedic aftercare (principal); I20.1 Angina pectoris with documented spasm; E55.9 Vitamin D deficiency, unspecified; K21.9 Gastro-esophageal reflux disease without esophagitis; S76.311D Strain of muscle, fascia and tendon of the posterior muscle group at thigh level, right thigh, subsequent encounter; Z79.82 Long term (current) use of aspirin; F32.A Depression, unspecified; Z79.899 Other long term (current) drug therapy; X58.XXXD Exposure to other specified factors, subsequent encounter
CPT/HCPCS: 36415; 80048; 85025; 87811; 97116; 97162; 97166; 97530; 97535; 97802

== ENCOUNTER → 2022-04-07 | Outpatient (CLI) | payer MEDICARE, OTHER, SELFPAY ==
[2022-04-07 11:19] LABS: Mucous, Urine 0 SEEN /hpf (<or=2+)
[2022-04-07 12:03] LABS: Color, Urine Yellow (Yellow); Glucose, Dipstick Normal (Normal); Ketone-Dipstick Negative (Negative); Leukocyte Esterase-Dipstick 500 /ul (Negative); Nitrite-Dipstick Negative (Negative); Occult Blood-Urine 25 /ul (Negative); Protein-Dipstick Negative (Negative); Urine Bilirubin Dipstick Negative (Negative); Urine Clarity Sl. Cloudy (Clear); Urine Urobilinogen Normal (Normal)
[2022-04-07 12:25] LABS: Bacteria 2+ /hpf (None Seen); Red Blood Cells-Urine 0-5 SEEN /hpf (0-5); Squamous Epithelial Cells - UA 0-5 SEEN /hpf (5-10); White Blood Cells 25-50 SEEN /hpf (0-5)
== END | disposition home or self-care (01) ==
LOC: MFPLAB 11:17
PROVIDERS: PCP Family Medicine; Referring Provider Family Medicine; Visit Provider Family Medicine
DX: R39.9 Unspecified symptoms and signs involving the genitourinary system (principal)
CPT/HCPCS: 81001; 87077; 87086; 87088; 87186

== ENCOUNTER 2022-06-03 09:30 | Outpatient (RCR) | payer MEDICARE, OTHER, SELFPAY ==
--- NOTE | 2022-03-19 14:20 | HP.PTEVAL_ITS ---
Patient's Visit Information HAYDER PETERS is a 77 year old F referred to Physical Therapy by Dr. Don Velazquez MD with a diagnosis of Partial tear of right hamstring, S76.311A. Date of Evaluation: 03/19/22 Physical Therapist: Da Bradley - Visit Plan Frequency: 1-2x /Week Duration: 3 Months Plan: Follow proximal hamstring repair protocol. Pt. is currently partial weight bearing with walker. Use manual therapy and modalities as needed for pain contro l. - Subjective Pt. is a 77 y.o. who has been having right hamstring pain for years with no specific injury that she is aware of. Pt. has had MRI of her right hamstring which showed high grade partial hamstring tear. Her PLOF includes history of lumbar laminectomy surgery in July of 2021. Pt. recently had right endoscopic hamstring repair and subgluteal bursectomy on 03-04-22 and is currently ambulating with a rolling walker and was not using an assistive device prior. Pt. denies any recent falls. She has difficulty with standing, walking, squatting, ascending/descending stairs, getting into/out of the car, walking on uneven ground, driving, getting into/out of the tub, LE dressing, housework, and yard work. Pt. is retired and was a nurse previously. Her goal with physical therapy is to decrease her pain and have better balance. She has had previous physical therapy for her right knee. Pt. rates right proximal hamstring pain at 1/10 currently, at worst 3/10, at best 0/10 and describes the pain as dull and achy pain. Pt. is currently taking Tylenol for pain. Her PMH includes angina, lumbar laminectomy in 2021, right knee menisectomy in 2019, C-sections, gall bladder removed, and hysterectomy. Pt. lives with her in a two story home with four steps to enter and handrail. Her hobbies include biking, sewing, and walking. - Objective Palpation- Mild tenderness over right proximal hamstring tendon. Posture- Good posture in standing. Hip PROM- WNL on left and NT on right. Left hip strength flexion [5/5], abduction [5/5], adduction [5/5], extension [5/5], knee flexion [5/5], knee extension [5/5], ankle DF [5/5], ankle PF [5/5]. Right hip strength flexion [NT], abduction [NT], adduction [NT], extension [NT], knee flexion [NT], knee extension [3/5], ankle DF [4/5], PF [4/5]. Sensation- WNL bilateral lower extremities. Gait- Pt. ambulates with standard walker and partial weight bearing of right lower extremity. - Balance/Special Test Scores Lower Extremity Functional Score: 7 - Goals Goal 1:: Pt. will be able to ambulate with SPC and no gait deviations. Goal Time Frame: 6-8 Weeks Goal 2:: Pt. will be able to ambulate with no assistive device or gait deviations. Goal Time Frame: 8-12 Weeks Goal 3:: Pt. will be able to walk at least 20 minutes with right hip pain < 3/10 Goal Time Frame: 12-16 Weeks Goal 4:: Pt. will be able to ascend/descend a flight of stairs with alternating step pattern and unilateral handrail. Goal Time Frame: 12-16 Weeks Goal 5:: Pt. will be able to get into/out of the car and tub with no pain or difficulty. Goal Time Frame: 12-16 Weeks Goal 6:: Pt. will improve LEFS score < 60% disability in order to improve ADL's. Goal Time Frame: 12-16 Weeks - Rehabilitation Potential Physical Therapy Diagnosis: Decreased right LE ROM, LE strength, core/back strength, balance, and pain Rehabilitation Potential: Good - Anticipated Interventions Patient/Client Instruction: Educate patient on: Condition, Plan of Care, Benefits of Fitness Program For the Purpose of:: To decrease pain, To decrease swelling/inflammation, To increase ROM, To improve ability to perform ADL's, To improve performance and independence with ADL's, To improve gait and locomotor functions, To increase flexibility/ROM, To improve safety with gait, To assume or resume ADL's, To improve safety, To improve tolerance to ADL's Therapeutic Exercise to Include: Strength training, Balance training, Gait and locomotor training, Passive ROM, Active ROM Comment: Follow proximal hamstring repair protocol. Progress WB per protocol. For the Purpose of:: To decrease pain, To decrease swelling/inflammation, To increase ROM, To improve ability to perform ADL's, To improve performance and independence with ADL's, To increase flexibility/ROM, To improve safety with gait, To assume or resume ADL's, To improve safety, To improve tolerance to ADL's Functional Training to Include: ADL Training, Gait training For the Purpose of:: To improve ability to perform ADL's, To improve performance and independence with ADL's, To improve balance, To improve safety with gait, To assume or resume ADL's, To improve safety, To improve tolerance to ADL's Manual Therapy Techniques to Include: Scar massage, Passive ROM, Soft tissue mobilization For the Purpose of:: To decrease pain, To decrease swelling/inflammation, To increase ROM, To improve ability to perform ADL's, To improve performance and independence with ADL's, To assume or resume ADL's, To improve tolerance to A DL's Assistive Devices: Cane, Wheeled walker, Standard walker For the Purpose of:: To decrease pain, To improve ability to perform ADL's, To improve performance and independence with ADL's, To improve gait and locomotor functions, To improve balance, To improve safety with gait, To assume or resume ADL's, To improve safety, To improve tolerance to ADL's TENS: Yes IF ES: Yes Cryotherapy (ice pack, ice massage): Yes For the Purpose of:: To decrease pain, To decrease swelling/inflammation, To improve ability to perform ADL's, To improve performance and independence with ADL's, To increase flexibility/ROM, To assume or resume ADL's, To improve to lerance to ADL's Thank you for the opportunity to evaluate your patient. For Medicare and Medicare HMO plans, please review the plan of care and approve it. It will need to be FAXED BACK to us at [phone] for Medicare purposes. For Medicare only, by signing this I certify the plan of care. Please let me know if there are questions or concerns regarding this plan of care. Physician Signature: Date:
--- NOTE | 2022-04-24 10:53 | HP.PTREVAL_ITS ---
Dr. Don Velazquez MD, It has been my pleasure to treat HAYDER PETERS over the last 10 visits for Partial tear of right hamstring, S78.667A. Please see the progress note below for an update on the physical therapy plan of care! Subjective: Patient reports that she is getting better but still having a lot of pain in the area 5/10. MD is aware and told her that it just takes time and she needs to be patient and continue PT Objective/Function: Palpation- Mild tenderness over right proximal hamstring tendon. Posture- Good posture in standing. Hip PROM- WNL on left and NT on right. Left hip strength flexion [5/5], abduction [5/5], adduction [5/5], extension [5/5], knee flexion [5/5], knee extension [5/5], ankle DF [5/5], ankle PF [5/5]. Right hip strength flexion [4/5], abduction [4/5], adduction [4/5], extension [4/5], knee flexion [4/5], knee extension [3/5], ankle DF [4/5], PF [4/5]- all tested in neutral position. Sensation- WNL bilateral lower extremities. Gait- decreased stance on the right LE. Stairs: asc/desc 8 recip with 2 HR Plan Plan: 04/24/22: Continue with protocol- 2x a week for 6 weeks. Follow proximal hamstring repair protocol Balance/Gait/Functional tests - Balance/Special Test Scores Lower Extremity Functional Score: 7 Goals Goal 1:: Pt. will be able to ambulate with SPC and no gait deviations. Goal Time Frame: 6-8 Weeks Goal 2:: Pt. will be able to ambulate with no assistive device or gait deviations. Goal Time Frame: 8-12 Weeks Goal 3:: Pt. will be able to walk at least 20 minutes with right hip pain < 3/10 Goal Time Frame: 12-16 Weeks Goal 4:: Pt. will be able to ascend/descend a flight of stairs with alternating step pattern and unilateral handrail. Goal Time Frame: 12-16 Weeks Goal 5:: Pt. will be able to get into/out of the car and tub with no pain or difficulty. Goal Time Frame: 12-16 Weeks Goal 6:: Pt. will improve LEFS score < 60% disability in order to improve ADL's. Goal Time Frame: 12-16 Weeks Anticipated Interventions Patient/Client Instruction: Educate patient on: Condition, Plan of Care, Benefits of Fitness Program For the Purpose of:: To decrease pain, To decrease swelling/inflammation, To increase ROM, To improve ability to perform ADL's, To improve performance and independence with ADL's, To improve gait and locomotor functions, To increase flexibility/ROM, To improve safety with gait, To assume or resume ADL's, To improve safety, To improve tolerance to ADL's Therapeutic Exercise to Include: Strength training, Balance training, Gait and locomotor training, Passive ROM, Active ROM Comment: Follow proximal hamstring repair protocol. Progress WB per protocol. For the Purpose of:: To decrease pain, To decrease swelling/inflammation, To increase ROM, To improve ability to perform ADL's, To improve performance and independence with ADL's, To increase flexibility/ROM, To improve safety with gait, To assume or resume ADL's, To improve safety, To improve tolerance to ADL's Functional Training to Include: ADL Training, Gait training For the Purpose of:: To improve ability to perform ADL's, To improve performance and independence with ADL's, To improve balance, To improve safety with gait, To assume or resume ADL's, To improve safety, To improve tolerance to ADL's Manual Therapy Techniques to Include: Scar massage, Passive ROM, Soft tissue mobilization For the Purpose of:: To decrease pain, To decrease swelling/inflammation, To increase ROM, To improve ability to perform ADL's, To improve performance and independence with ADL's, To assume or resume ADL's, To improve tolerance to ADL's Assistive Devices: Cane, Wheeled walker, Standard walker For the Purpose of:: To decrease pain, To improve ability to perform ADL's, To improve performance and independence with ADL's, To improve gait and locomotor functions, To improve balance, To improve safety with gait, To assume or resume ADL's, To improve safety, To improve tolerance to ADL's TENS: Yes IF ES: Yes Cryotherapy (ice pack, ice massage): Yes For the Purpose of:: To decrease pain, To decrease swelling/inflammation, To improve ability to perform ADL's, To improve performance and independence with ADL's, To increase flexibility/ROM, To assume or resume ADL's, To improve tolerance to ADL's Please do not hesitate to contact me at [phone] by phone or Fax: if you have questions or concerns regarding this new plan of care! Sincerely, NEYMAR GutierrezT
--- NOTE | 2022-06-03 10:28 | HP.PTREVAL ---
Dr. Don Velazquez MD, It has been my pleasure to treat HAYDER PETERS over the last 19 visits for Partial tear of right hamstring, S79.655A. Please see the progress note below for an update on the physical therapy plan of care! Subjective: Patient reports that in relation to her hip stuff she is doing great but her back is not good. She saw the PA who is really happy with her hip but thinks she needs to go back to her back surgeon due to the pain. The pain comes and goes but is there a lot- mostly with activity- lifting and twisting. Hip pain is sometimes- positional- -03/27. She plans to follow up with her back surgeon. Does follow up again with her hip surgeon too. 18 weeks she can go back to twisting motions. Objective/Function: Palpation- Mild tenderness over right proximal hamstring tendon. Posture- Good posture in standing. Hip PROM- WNL on left and NT on right. Left hip strength flexion [5/5], abduction [5/5], adduction [5/5], extension [5/5], knee flexion [5/5], knee extension [5/5], ankle DF [5/5], ankle PF [5/5]. Right hip strength flexion [4/5], abduction [4/5], adduction [4/5], extension [4/5], knee flexion [4/5], knee extension [3/5], ankle DF [4/5], PF [4/5]- all tested in neutral position. Sensation- WNL bilateral lower extremities. Gait- decreased stance on the right LE. Stairs: asc/desc 8 recip with 2 HR Plan Plan: 06/03/22: Pt plans to go back to back surgeon for follow up and vacation with family- will follow up with PT after- will either discharge to [facility] or is appropriate to continue strength training for hip 2-3x a week for 6 weeks from time she returns. 04/24/22: Continue with protocol- 2x a week for 6 weeks. Follow proximal hamstring repair protocol Balance/Gait/Functional tests - Balance/Special Test Scores Lower Extremity Functional Score: 40 Goals Goal 1:: Pt. will be able to ambulate with SPC and no gait deviations. Goal Time Frame: 6-8 Weeks Goal Progress: Progressing Goal 2:: Pt. will be able to ambulate with no assistive device or gait deviations. Goal Time Frame: 8-12 Weeks Goal Progress: Progressing Goal 3:: Pt. will be able to walk at least 20 minutes with right hip pain < 3/10 Goal Time Frame: 12-16 Weeks Goal Progress: Progressing Goal 4:: Pt. will be able to ascend/descend a flight of stairs with alternating step pattern and unilateral handrail. Goal Time Frame: 12-16 Weeks Goal Progress: Progressing Goal 5:: Pt. will be able to get into/out of the car and tub with no pain or difficulty. Goal Time Frame: 12-16 Weeks Goal Progress: Progressing Goal 6:: Pt. will improve LEFS score < 60% disability in order to improve ADL's. Goal Time Frame: 12-16 Weeks Goal Progress: Progressing Anticipated Interventions Patient/Client Instruction: Educate patient on: Condition, Plan of Care, Benefits of Fitness Program For the Purpose of:: To decrease pain, To decrease swelling/inflammation, To increase ROM, To improve ability to perform ADL's, To improve performance and independence with ADL's, To improve gait and locomotor functions, To increase flexibility/ROM, To improve safety with gait, To assume or resume ADL's, To improve safety, To improve tolerance to ADL's Therapeutic Exercise to Include: Strength training, Balance training, Gait and locomotor training, Passive ROM, Active ROM Comment: Follow proximal hamstring repair protocol. Progress WB per protocol. For the Purpose of:: To decrease pain, To decrease swelling/inflammation, To increase ROM, To improve ability to perform ADL's, To improve performance and independence with ADL's, To increase flexibility/ROM, To improve safety with gait, To assume or resume ADL's, To improve safety, To improve tolerance to ADL's Functional Training to Include: ADL Training, Gait training For the Purpose of:: To improve ability to perform ADL's, To improve performance and independence with ADL's, To improve balance, To improve safety with gait, To assume or resume ADL's, To improve safety, To improve tolerance to ADL's Manual Therapy Techniques to Include: Scar massage, Passive ROM, Soft tissue mobilization For the Purpose of:: To decrease pain, To decrease swelling/inflammation, To increase ROM, To improve ability to perform ADL's, To improve performance and independence with ADL's, To assume or resume ADL's, To improve tolerance to ADL's Assistive Devices: Cane, Wheeled walker, Standard walker For the Purpose of:: To decrease pain, To improve ability to perform ADL's, To improve performance and independence with ADL's, To improve gait and locomotor functions, To improve balance, To improve safety with gait, To assume or resume ADL's, To improve safety, To improve tolerance to ADL's TENS: Yes IF ES: Yes Cryotherapy (ice pack, ice massage): Yes For the Purpose of:: To decrease pain, To decrease swelling/inflammation, To improve ability to perform ADL's, To improve performance and independence with ADL's, To increase flexibility/ROM, To assume or resume ADL's, To improve tolerance to ADL's Please do not hesitate to contact me at [phone] by phone or if you have questions or concerns regarding this new plan of care! Sincerely, Carly Gerber DPT
--- NOTE | 2022-08-31 12:07 | HP.PTDCSUM ---
Discharge Summary D/C summary: It has been my pleasure to treat HAYDER PETERS referred by Dr. Don Velazquez MD, with the diagnosis of Partial tear of right hamstring, S76.001A for a total of 19 visit(s). Discharge Date: Please see the following information for a summary of their discharge status. Subjective Subjective: Patient reports that in relation to her hip stuff she is doing great but her back is not good. She saw the PA who is really happy with her hip but thinks she needs to go back to her back surgeon due to the pain. The pain comes and goes but is there a lot- mostly with activity- lifting and twisting. Hip pain is sometimes- positional- 1-2/10. She plans to follow up with her back surgeon. Does follow up again with her hip surgeon too. 18 weeks she can go back to twisting motions. Pain R Hamstring: Pain Intensity (Out of 10): 0 Overall Improvement % Improvement: 100 Objective Objective/Function: Palpation- Mild tenderness over right proximal hamstring tendon. Posture- Good posture in standing. Hip PROM- WNL on left and NT on right. Left hip strength flexion [5/5], abduction [5/5], adduction [5/5], extension [5/5], knee flexion [5/5], knee extension [5/5], ankle DF [5/5], ankle PF [5/5]. Right hip strength flexion [4/5], abduction [4/5], adduction [4/5], extension [4/5], knee flexion [4/5], knee extension [3/5], ankle DF [4/5], PF [4/5]- all tested in neutral position. Sensation- WNL bilateral lower extremities. Gait- decreased stance on the right LE. Stairs: asc/desc 8 recip with 2 HR Goals Goal 1:: Pt. will be able to ambulate with SPC and no gait deviations. Goal Progress: Progressing Goal 2:: Pt. will be able to ambulate with no assistive device or gait deviations. Goal Progress: Progressing Goal 3:: Pt. will be able to walk at least 20 minutes with right hip pain < 3/10 Goal Progress: Progressing Goal 4:: Pt. will be able to ascend/descend a flight of stairs with alternating step pattern and unilateral handrail. Goal Progress: Progressing Goal 5:: Pt. will be able to get into/out of the car and tub with no pain or difficulty. Goal Progress: Progressing Goal 6:: Pt. will improve LEFS score < 60% disability in order to improve ADL's. Goal Progress: Progressing Plan Plan: 06/03/22: Pt plans to go back to back surgeon for follow up and vacation with family- will follow up with PT after- will either discharge to [facility] or is appropriate to continue strength training for hip 2-3x a week for 6 weeks from time she returns. 04/24/22: Continue with protocol- 2x a week for 6 weeks. Follow proximal hamstring repair protocol D/C Information d/c sentence: If there are questions or concerns regarding this patient's physical therapy, please feel free to call me at [phone]. Thank you for the referral of this patient. Sincerely, Carly Gerber, DPT Balance/Gait/Functional tests Balance/Special Test Scores Lower Extremity Functional Score: 40
== END 2022-06-03 19:00 | disposition home or self-care (01) ==
LOC: PT 09:30
PROVIDERS: PCP Family Medicine; Referring Provider Orthopaedic Surgery Sports Medicine; Visit Provider Orthopaedic Surgery Sports Medicine
DX: S76.311D Strain of muscle, fascia and tendon of the posterior muscle group at thigh level, right thigh, subsequent encounter (principal)
CPT/HCPCS: 97014; 97110; 97162; 97164; G0283

== ENCOUNTER → 2022-09-08 | Outpatient (CLI) | payer MEDICARE, OTHER, SELFPAY ==
[2022-09-08 12:29] LABS: Absolute Lymphocyte Count 0.97 X10^3/uL (0.83-4.51); Absolute Neutrophil Count 9.4 X10^3/uL (2.0-7.7); Basophil# 0.04 X10^3/uL; Basophil% 0.4 % (0-1); Eosinophil# 0.03 X10^3/uL; Eosinophils% 0.3 % (0-5); Hematocrit 42.8 % (37-47); Lymphocyte # 0.97 X10^3/ul (0.83-4.51); Lymphocyte % 8.6 % (19-41); Mean Corp Hgb Conc 32.7 g/dL (32-36); Mean Corpuscular Hgb 30.7 pg (27.0-32.0); Mean Corpuscular Volume 93.9 fL (81-99); Mean Platelet Vol. 9.8 fl (6.2-12.0); Monocyte% 6.2 % (0-10); NRBC Flagged by Analyzer 0 % (0-5); Neutrophil # 9.43 X10^3/uL (2.7-7.7); Platelet Count 259 K/mm3 (150-450); RBC Distribution Width SD 47.8 fl (35.1-43.9); Red Blood Count 4.56 M/mm3 (4.2-5.4); White Blood Count 11.2 K/mm3 (4.4-11.0)
[2022-09-08 13:33] LABS: ALB/GLOB Ratio 1.3 RATIO (0.9-2.4); AST(SGOT) 12 U/L (15-37); Alanine Aminotransfer ALT/SGPT 14 U/L (13-56); Albumin, Serum 3.7 g/dL (3.2-5.0); Alkaline Phosphatase 80 U/L (45-117); Anion Gap 6 (5-15); BUN 11 mg/dL (7-18); BUN/Creat Ratio 12.4 RATIO (10-20); Calcium,Total 8.9 mg/dL (8.5-10.1); Chloride 109 mmol/L (98-107); Creatinine, Serum 0.89 mg/dL (0.55-1.02); EST Glomerular Filtration Rate 66 mL/min (>60); Est Glom Filt Rate - Afr Amer 80 mL/min (>60); Globulin 2.8 g/dL (2.2-4.2); Glucose 97 mg/dL (74-106); Potassium 3.8 mmol/L (3.5-5.1); Protein, Total 6.5 g/dL (6.4-8.2); Sodium Level 139 mmol/L (136-145); Thyroid Stim Hormone (TSH) 2.46 uIU/mL (0.358-3.74)
== END | disposition home or self-care (01) ==
LOC: MTLAB 09:53
PROVIDERS: PCP Family Medicine; Referring Provider Family Medicine; Visit Provider Family Medicine
DX: R60.9 Edema, unspecified (principal)
CPT/HCPCS: 36415; 80053; 84443; 85025

== ENCOUNTER → 2022-09-17 | Outpatient (CLI) | payer MEDICARE, OTHER, SELFPAY ==
--- NOTE | 2022-09-17 18:38 | CT_ITS ---
STUDY: CT ABDOMEN AND PELVIS WITH CONTRAST REASON FOR EXAM: Female, 77 years old. Six-month history of right upper quadrant pain. RADIATION DOSAGE (If Supplied By Facility): CTDIvol = ( 16.10 ) mGy, DLP = ( 833.37 ) mGycm TECHNIQUE: Transaxial images were obtained from the dome of the diaphragm to the symphysis pubis without oral contrast. IV 100mL Isovue-300 was administered. Sagittal and coronal images were reconstructed. Individualized dose optimization techniques were used for this CT. COMPARISON: Comparison is made with prior study dated October 27, 2020. FINDINGS: Minimal bibasilar linear atelectasis. Small pericardial effusion along the base of the heart. There is decreased attenuation of the liver consistent with steatosis. Subcentimeter cyst in the anterior aspect of the right lobe of the liver. There are surgical clips in the gallbladder fossa consistent with a prior cholecystectomy. Normal spleen. Normal pancreas. Normal bilateral adrenal glands. Normal right kidney. Normal left kidney. Normal visualized stomach. Normal small intestine. Normal colon. There are surgical clips in the region of the appendix consistent with a prior appendectomy. Normal abdominal aorta. Normal inferior vena cava. Normal retroperitoneum. Normal urinary bladder. There is absence of the uterus consistent with a prior hysterectomy. There is a 2.6 cm x 1.6 cm cyst in the right ovary. There is a small umbilical hernia containing fat. There are degenerative changes of the visualized lumbar spine. Dextroscoliosis. CT/Abdomen/Pelvis WITH Contrast IMPRESSION: Tiny cyst in the right lobe of the liver. Diffuse fatty infiltration of the liver. Small umbilical hernia containing fat. 2.6 cm x 1.6 cm cyst in the right ovary. Electronically Signed: Carlos Torres MD at 14:22 EDT ,
== END | disposition home or self-care (01) ==
LOC: CT 18:36
PROVIDERS: PCP Family Medicine; Referring Provider Family Medicine; Visit Provider Family Medicine
DX: R10.11 Right upper quadrant pain (principal)
CPT/HCPCS: 74177; Q9967

== ENCOUNTER → 2023-02-09 | Outpatient (CLI) | payer MEDICARE, OTHER, SELFPAY ==
--- NOTE | 2023-02-09 07:47 | BI_ITS ---
MAMMOGRAPHY - BILATERAL SCREENING 3-D TOMOSYNTHESIS REASON FOR EXAM: Female, 77 years old. Routine screening PERTINENT HISTORY: No significant family history. TECHNIQUE: 2-D mammograms and 3-D Tomosynthesis of the breast (s) were performed. CAD was performed. COMPARISON: 2021, 2020 FINDINGS: The breast composition is composed of scattered fibroglandular density. Scattered benign calcifications are seen. No dense spiculated masses or suspicious microcalcifications are identified. No architectural distortion is identified. There is no skin thickening or retraction. There has been no significant change since the prior study. BI/SCRN MAMM (CAD)W/ZHANE BILAT IMPRESSION: No mammographic signs of malignancy. Routine yearly mammograms recommended. ASSESSMENT CATEGORY: BIRADS Category 1: Negative. A letter regarding these results will be sent to the patient by the facility within 30 days. FOLLOW UP RECOMMENDATION: Yearly follow up mammogram recommended. (A) Approximately 10% of breast cancers are not detected by mammography. A normal mammogram should not delay biopsy of a clinically suspicious abnormality. Electronically Signed: Onur Tate MD at 17:42 EST ,
== END | disposition home or self-care (01) ==
LOC: OPBI 07:47
PROVIDERS: PCP Family Medicine; Referring Provider Family Medicine; Visit Provider Family Medicine
DX: Z12.31 Encounter for screening mammogram for malignant neoplasm of breast (principal)
CPT/HCPCS: 77063; 77067

== ENCOUNTER → 2023-05-20 | Outpatient (CLI) | payer MEDICARE, OTHER, SELFPAY ==
[2023-05-20 12:08] LABS: ALB/GLOB Ratio 1.4 RATIO (0.9-2.4); AST(SGOT) 20 U/L (15-37); Alanine Aminotransfer ALT/SGPT 13 U/L (13-56); Albumin, Serum 3.7 g/dL (3.2-5.0); Alkaline Phosphatase 75 U/L (45-117); Anion Gap 5 (5-15); BUN 9 mg/dL (7-18); BUN/Creat Ratio 9.6 RATIO (10-20); Calcium,Total 8.5 mg/dL (8.5-10.1); Chloride 110 mmol/L (98-107); Creatinine, Serum 0.94 mg/dL (0.55-1.02); EST Glomerular Filtration Rate 62 mL/min (>60); Est Glom Filt Rate - Afr Amer 75 mL/min (>60); Globulin 2.6 g/dL (2.2-4.2); Glucose 118 mg/dL (74-106); Potassium 4.2 mmol/L (3.5-5.1); Protein, Total 6.3 g/dL (6.4-8.2); Sodium Level 140 mmol/L (136-145); Thyroid Stim Hormone (TSH) 2.62 uIU/mL (0.358-3.74)
[2023-05-20 12:20] LABS: PTHIN 44.2 pg/mL (18.4-80.1)
[2023-05-20 12:23] LABS: Vitamin D,25 Hydroxy 47.2 ng/mL
[2023-05-24 14:08] LABS: PROEL- A/G Ratio 1.5 (0.7-1.7); PROEL- Albumin 3.5 g/dL (2.9-4.4); PROEL- Alpha-1 Globulin 0.3 g/dL (0.0-0.4); PROEL- Alpha-2 Globulin 0.7 g/dL (0.4-1.0); PROEL- Gamma Globulin 0.4 g/dL (0.4-1.8); PROEL- Globulin, Total 2.4 g/dL (2.2-3.9); PROEL- TOTAL PROTEIN 5.9 g/dL (6.0-8.5); PROEL-M-Spike Not Observed g/dL (Not Observed); PROELU- Albumin, Urine 38.1 % (.); PROELU- Alpha-2-Globulin,Ur 12.9 % (.); PROELU- Beta Globulin, Ur 32.1 % (.); Total Protein, Ur 18.9 mg/dL (Not Estab.)
== END | disposition home or self-care (01) ==
LOC: LAB 11:06
PROVIDERS: PCP Family Medicine; Referring Provider Internal Medicine Endocrinology, Diabetes & Metabolism; Visit Provider Internal Medicine Endocrinology, Diabetes & Metabolism
DX: M81.0 Age-related osteoporosis without current pathological fracture (principal); E04.9 Nontoxic goiter, unspecified; E21.5 Disorder of parathyroid gland, unspecified; E55.9 Vitamin D deficiency, unspecified
CPT/HCPCS: 36415; 80053; 82306; 83970; 84165; 84166; 84443

== ENCOUNTER → 2023-06-15 | Outpatient (CLI) | payer MEDICARE, OTHER, SELFPAY ==
--- NOTE | 2023-06-15 14:36 | BD_ITS ---
STUDY: DUAL ENERGY X-RAY ABSORPTIOMETRY / DXA REASON FOR EXAM: Female, 78 years old. M810 TECHNIQUE: Bone Mineral Density (BMD) measurements of lumbar spine and bilateral hips were obtained. COMPARISON: Comparison is made with prior study June 10, 2021. FINDINGS: Lumbar Spine (L1-L4): g/cm2 (0.845) / T-score (-1.8) / Z-score (0.6) Findings are suggestive of osteopenia with a moderate fracture risk. Left Femur Total: g/cm2 (0.639) / T-score (-2.5) / Z-score (-0.6) Left Femoral Neck: g/cm2 (0.502) / T-score (-3.1) / Z-score (-1.0) Right Femur Total: g/cm2 (0.575) / T-score (-3.0) / Z-score (-1.2) Right Femoral Neck: g/cm2 (0.450) / T-score (-3.6) / Z-score (-1.5) The T-Scores on the most recent prior examination were: Lumbar Spine (L1-L4): There has been worsening of bone density since the previous examination. Left Femur Total: which represents a worsening of 2.5%. Right Femur Total: which represents a worsening of 6.3%. BD/Dexa Bone Density Study IMPRESSION: The patient is considered osteoporotic as outlined below according to World [employer] Organization (WHO) criteria with a high fracture risk. There has been worsening of bone density since the previous examination. Reference Information: The T-score is the number of standard deviations above or below the standard which is normal for young adults at their peak bone mineral density. The World Health Organization (WHO) interprets the T-scores as follows: Above -1 Normal bone density Between -1 and -2.5 Osteopenia Equal to / or below -2.5 Osteoporosis As a practical clinical guideline, osteopenia may be graded as follows: Mild -1 through -1.5 Moderate -1.6 through -2.0 Severe -2.1 through -2.4 The Z-score is the number of standard deviations above or below age-matched controls. A Z-score of less than -1.5 would be considered abnormal. References: 1. NIH Osteoporosis and Related Bone Diseases www osteo.org 2. International Society for Clinical Densitometry www iscd.org 3. National Osteoporosis Foundation www nof.org Electronically Signed: Carlos Torres MD at 15:36 EDT ,
== END | disposition home or self-care (01) ==
LOC: OPBD 14:34
PROVIDERS: PCP Family Medicine; Referring Provider Internal Medicine Endocrinology, Diabetes & Metabolism; Visit Provider Internal Medicine Endocrinology, Diabetes & Metabolism
DX: M81.0 Age-related osteoporosis without current pathological fracture (principal)
CPT/HCPCS: 77080

== ENCOUNTER → 2023-06-21 | Outpatient (CLI) | payer MEDICARE, OTHER, SELFPAY ==
[2023-06-21 11:32] LABS: Mucous, Urine 0 SEEN /hpf (<or=2+)
[2023-06-21 12:01] LABS: Color, Urine Yellow (Yellow); Glucose, Dipstick Normal (Normal); Ketone-Dipstick Negative (Negative); Leukocyte Esterase-Dipstick 500 /ul (Negative); Nitrite-Dipstick Negative (Negative); Occult Blood-Urine 50 /ul (Negative); Protein-Dipstick 15 mg/dl (Negative); Urine Bilirubin Dipstick Negative (Negative); Urine Clarity Sl. Cloudy (Clear); Urine Urobilinogen Normal (Normal); Urine pH 6.5 (5.0 - 8.0)
[2023-06-21 12:08] LABS: Bacteria 1+ /hpf (None Seen); Red Blood Cells-Urine 0-5 SEEN /hpf (0-5); Squamous Epithelial Cells - UA 0-5 SEEN /hpf (5-10); White Blood Cells 25-50 SEEN /hpf (0-5)
== END | disposition home or self-care (01) ==
LOC: LABSPEC 10:30
PROVIDERS: PCP Family Medicine; Referring Provider Physician Assistant; Visit Provider Physician Assistant
DX: N39.0 Urinary tract infection, site not specified (principal)
CPT/HCPCS: 81001; 87077; 87086; 87088; 87186

== ENCOUNTER → 2023-08-31 | Outpatient (CLI) | payer MEDICARE, OTHER, SELFPAY ==
[2023-08-31 10:36] LABS: Mucous, Urine 0 SEEN /hpf (<or=2+)
[2023-08-31 10:46] LABS: Color, Urine Yellow (Yellow); Glucose, Dipstick Normal (Normal); Ketone-Dipstick Negative (Negative); Leukocyte Esterase-Dipstick 500 /ul (Negative); Nitrite-Dipstick Negative (Negative); Occult Blood-Urine 10 /ul (Negative); Protein-Dipstick 15 mg/dl (Negative); Specific Gravity, Urine 1.005 (1.002-1.030); Urine Bilirubin Dipstick Negative (Negative); Urine Clarity Sl. Cloudy (Clear); Urine Urobilinogen Normal (Normal)
[2023-08-31 10:54] LABS: Bacteria RARE /hpf (None Seen); Red Blood Cells-Urine 0-5 SEEN /hpf (0-5); Squamous Epithelial Cells - UA 0-5 SEEN /hpf (5-10); White Blood Cells 50-100 SEEN /hpf (0-5)
== END | disposition home or self-care (01) ==
LOC: LABSPEC 10:24
PROVIDERS: PCP Family Medicine; Referring Provider Physician Assistant Medical; Visit Provider Physician Assistant Medical
DX: R30.0 Dysuria (principal)
CPT/HCPCS: 81001; 87077; 87086; 87088; 87186

== ENCOUNTER 2023-09-28 10:00 | Outpatient (RCR) | payer MEDICARE, OTHER, SELFPAY ==
--- NOTE | 2023-04-14 15:25 | HP.PTEVAL_ITS ---
Patient's Visit Information Visit Information Visit Information: HAYDER PETERS is a 78 year old F referred to Physical Therapy by Dr. Don Velazquez MD with a diagnosis of SEVERE TENDONITIS RIGHT HAMSTRING Date of Evaluation: 04/14/23 Physical Therapist: Inocente Javier, PT, Cert MDT, OCS Visit Plan Frequency: 2x /Week Duration: 4 Weeks Plan: PATIENT HAD HAMSTRINGS REPAIR FEB 2022 ALONG WITH LUMBAR SURGERY [address] MALIK FOR LUMBAR PAIN PT INTERVENTIONS STRETCHING HAMSTRING ,STRENGTHENING HIP/HAMSTRINGS ,DLS ,MODALITIES AND ACTIVITY MODIFICATION Subjective Subjective: This 78 y/o female presents to physical therapy with hamstrings tendonitis. Intailly ,had torn hamstring thus had right hamstring repair last Feb 2022 . Patient had PT was getting. Also had lumbar surgery laminectomy /discectomy/foraminotomy [address] Malik. Patient symptoms got worse after PT in gluteus hamstrings. Patient has had SI injection ~ 3 months ago at [facility] . Patient will see DR Malik back surgeon April 19.Dr Velazquez also recommend DR Malik. Patient had MRI last year. Patient had US showed severe tendonitis but tendon is attached. Medication: Naprosyn. Patient Dr has couple options possible surgery. Pain Glut hamstrings and lumbar pain and lateral hip pain and starts in back. Patient also consulted DR Campos for hip which is -. Pain described as burning and paresthesia lateral .Patient aggravating factors standing ,sitting ,bending and walking . Alleviating rest. Coughing/sneezing causes back pain. C/O c/o paresthesia/tingling right lateral leg. Symptoms affects sleeping. Patient symptoms are aggravated with housework tasks and ADL'S Patient goals why I have my pain and decrease pain. SOCIAL: VOCATION: retired Pain Right Buttocks: Pain Intensity (Out of 10): 3 Pain Intensity Range: 9 Right Lower Extremity: Pain Intensity (Out of 10): 7 Pain Intensity Range: 10 Bilateral Back: Pain Intensity (Out of 10): 10 Pain Intensity Range: 10 Objective Objective: POSTURE: mild posture PALPATION: SI/LS right > left side NEURO: c/o paresthesia/tingling , reflexes L3-4,L4-5,L5-S1 2/3 FLEXIBILITY: hamstring tightness mild ,piriformis min tight PROM HIP: flexion 110 degrees , IR 50 degrees ,ER 65 NO PAIN LUMBAR ROM: flexion mod loss pain ,extension min loss ,side glides min/mod loss MMT: quads 4/5 ,( peak force) hamstrings right 23.6 ,left 30.8 ,hip abd 17.8 ri ght ,19.9 left Special Tests L/S Slump test left side: Negative L/S Slump test right side: Negative L/S Left Straight Leg Raise: Negative L/S Right Straight Leg Raise: Negative Lumbar Standing: Flexion - Mechanical Response: No effect Lumbar Standing: Flexion - Symptoms During Testing: Increases Lumbar Standing: Flexion - Symptoms After Testing: Worse Lumbar Standing: Extension - Mechanical Response: No effect Lumbar Standing: Extension - Symptoms During Testing: Increases Lumbar Standing: Extension - Symptoms After Testing: No worse Lumbar Standing: Right Side Glides - Mechanical Response: No effect Lumbar Standing: Right Side [place] - Symptoms During Testing: Increases Lumbar Standing: Right Side [place] - Symptoms After Testing: Worse Lumbar Standing: Left Side [place] - Mechanical Response: No effect Lumbar Standing: Left Side [place] - Symptoms During Testing: No effect Lumbar Standing: Left Side [place] - Symptoms After Testing: No effect L Hip Scour: Negative L Hip Quadrant - Intraarticular Pathology: Negative L Hip Trendelenberg - Glut Medius: Negative L Hip Trey - IT Band: Negative Balance/Special Test Scores Lower Extremity Functional Score: 15 Goals Goal 1:: Patient to be I with HEP for hamstring and back Goal Time Frame: 4-6 Weeks Goal 2:: Patient to demonstrate 50% to increase function and decrease pain Goal Time Frame: 4-6 Weeks Goal 3:: Patient to improve peak force hamstring and hip strengthening by 5-10# to improve gait Goal Time Frame: 4-6 Weeks Goal 4:: Patient to improve peak force hips and hamstrings by 5-10# to improve function and gait Goal Time Frame: 4-6 Weeks Goal 5:: Patient to improve LEFS score by 5 points cristina improve QOL and function Goal Time Frame: 4-6 Weeks Rehabilitation Potential Physical Therapy Diagnosis: This patient has complex issues with h/o right endoscopic hamstring repair and sciatic neurolysis Feb 2022 and lumbar surgery 2020 with pain in lumbar pain and radiates to lateral thigh with burning and numbness weak myotome weakness hip along with hamstring weakness and mild pain . Patient pain in back worse with motion testing ,plans to see DR Malik for back thus patient will benefit from skilled PT Anticipated Interventions Patient/Client Instruction: Educate patient on: Condition and Plan of Care For the Purpose of:: To decrease pain, To increase ROM, To improve muscle performance and motor function, To improve ability to perform ADL's, To increase tolerance to activity/condition/position, To improve ability of physical actions for home/community/work/leisure, To improve gait and locomotor functions, To improve health of tissue, To decrease soft tissue restriction, To increase flexibility/ROM, To improve endurance and To reduce risk of recurrence Therapeutic Exercise to Include: Strength training, Postural training, Flexibilty training and Dynamic Lumbar Stabilization Comment: HIP/HAMSTRING STRENGTHENING For the Purpose of:: To decrease pain, To increase ROM, To improve muscle performance and motor function, To increase tolerance to activity/condition/position, To improve ability of physical actions for home/community/work/leisure, To improve gait and locomotor functions, To improve health of tissue, To decrease soft tissue restriction, To increase flexibility/ROM and To improve tolerance to ADL's IF ES: Yes Cryotherapy (ice pack, ice massage): Yes Thermo therapy (hot pack): Yes Ultrasound (thermal/non thermal): Yes For the Purpose of:: To decrease pain, To increase ROM, To improve nutrient delivery to tissue, To increase oxygenation perfusion, To improve health of tissue, To decrease soft tissue restriction and To increase flexibility/ROM Text: Thank you for the opportunity to evaluate your patient. For Medicare and Medicare HMO plans, please review the plan of care and approve it. It will need to be FAXED BACK to us at [phone] for Medicare purposes. For Medicare only, by signing this I certify the plan of care. Please let me know if there are questions or concerns regarding this plan of care. Physician Signature: Date:
--- NOTE | 2023-05-26 12:07 | HP.PTEVAL2 ---
Patient's Visit Information Visit Information Visit Information: HAYDER PETERS is a 78 year old F referred to Physical Therapy by Dr. Jaxson Velarde MD with a diagnosis of LUMBAR RADICULOAPTHY. Date of Evaluation: 05/26/23 Physical Therapist: Inocente Javier, PT, Cert MDT, OCS Visit Plan Frequency: 2x /Week Duration: 4 Weeks Plan: PT INTERVENTIONS DLS ,HIP STRENGTHENING ,WB STRENGTHENING ,POSTURAL EX'S AND MODALTIES FOR PAIN Subjective Subjective: This 78 y/o female presents physical therapy with lumbar radiculopathy. Patient has been seen for PT for hamstring year but has c/o more pain in lumbar pain with radicular symptoms to knee lateral aspect leg . Patient c/o paresthesia/tingling in thigh and pain in lumbar pain. Patient had another opinion with DR Velarde had MRI see results had other blood work and bone density and unable to do surgery due to severity of osteoporosis.Also other DR unable to do surgery as well which patient had lumbar surgery August 06 2021 lumbar laminectomy/foraminotomy. Intailly ,had torn hamstring thus had right hamstring repair last Feb 2022 . Patient had PT was getting. Also had lumbar surgery laminectomy /discectomy/foraminotomy [address] Lindsey. Patient symptoms got worse after PT in gluteus hamstrings. Patient has had SI injection ~ 3 months ago at [facility] .Patient aggravating factors standing ,sitting ,bending and walking . Alleviating rest. Coughing/sneezing causes back pain. Patient seen endroglosit had bone density and blood work.Medication: naproxen.Bowel/bladder-. No abnormal back pain with sleeping. Patient sleeping okay . Patient pain affects QOL and function /difficulty with housework chores with bending/twisting lifting. Goals to decrease pain low back. SOCAIL: VOCARTION: reired Pain Bilateral Back: Intensity: 5 Right Lower Extremity: Intensity: 5 Pain Intensity Range: 10 Objective Objective: Objective: POSTURE: mild posture PALPATION: SI/LS right > left side NEURO: c/o paresthesia/tingling , reflexes L3-4,L4-5,L5-S1 2/3 FLEXIBILITY: hamstring tightness mild ,piriformis min tight PROM HIP: flexion 110 degrees , IR 50 degrees ,ER 65 NO PAIN LUMBAR ROM: flexion mod loss pain ,extension min loss ,side glides min/mod loss MMT: quads 4/5 ,( peak force) hamstrings right 21.2 ,left 24.2 ,hip abd 18.1 right ,19.6 left Special Tests Slump test left side: Negative Slump test right side: Negative Left Straight Leg Raise: Negative Right Straight Leg Raise: Negative Flexion - Mechanical Response: No effect Flexion - Symptoms During Testing: Increases Flexion - Symptoms After Testing: Worse Extension - Mechanical Response: No effect Extension - Symptoms During Testing: Increases Extension - Symptoms After Testing: Worse Right Side Glides - Mechanical Response: No effect Right Side [place] - Symptoms During Testing: Increases Right Side [place] - Symptoms After Testing: Worse Left Side [place] - Mechanical Response: No effect Left Side [place] - Symptoms During Testing: No effect Left Side [place] - Symptoms After Testing: No effect Goals Goal 1:: Patient to be I with HEP for spine Goal Time Frame: 4-6 Weeks Goal 2:: Patient demonstrates 40-50% improvement with less pain and improved function Goal Time Frame: 4-6 Weeks Goal 3:: Patient to improve lumbar ROM for function of recovery to put on shoes and lift laundry basket Goal Time Frame: 4-6 Weeks Goal 4:: Patient to improve back oswestry score by 5 points to improve QOL Goal Time Frame: 4-6 Weeks Goal 5:: Patient to improve peak force hip by 5-10 # to improve gait and function gait Rehabilitation Potential Physical Therapy Diagnosis: This patient has multiple complexity with lumbar pain with stenosis and is not able to surgery . Plan to have bone density . patient ahs pain with positioning and motion testing affects walking/standing affects ADLS and housework tasks thus benefit from skilled PT Rehabilitation Potential: Good Anticipated Interventions Patient/Client Instruction: Educate patient on: Condition and Plan of Care For the Purpose of:: To decrease pain, To increase ROM, To improve muscle performance and motor function, To improve ability to perform ADL's, To increase tolerance to activity/condition/position, To improve ability of physical actions for home/community/work/leisure, To improve health of tissue, To decrease soft tissue restriction, To increase flexibility/ROM and To improve tolerance to ADL's Therapeutic Exercise to Include: Strength training, Endurance training, Postural training, Flexibilty training and Dynamic Lumbar Stabilization For the Purpose of:: To decrease pain, To improve muscle performance and motor function, To improve ability to perform ADL's, To increase tolerance to activity/condition/position, To improve ability of physical actions for home/community/work/leisure, To improve health of tissue, To decrease soft tissue restriction, To increase flexibility/ROM, To reduce risk of recurrence and To improve tolerance to ADL's TENS: Yes IF ES: Yes Cryotherapy (ice pack, ice massage): Yes Thermo therapy (hot pack): Yes Ultrasound (thermal/non thermal): Yes For the Purpose of:: To decrease pain, To increase ROM, To improve nutrient delivery to tissue, To increase oxygenation perfusion, To improve health of tissue and To decrease soft tissue restriction text: Thank you for the opportunity to evaluate your patient. For Medicare and Medicare HMO plans, please review the plan of care and approve it. It will need to be FAXED BACK to us at [phone] for Medicare purposes. For Medicare only, by signing this I certify the plan of care. Please let me know if there are questions or concerns regarding this plan of care. Physician Signature: Date:
--- NOTE | 2023-05-26 12:23 | HP.PTDCSUM ---
Discharge Summary D/C summary: It has been my pleasure to treat HAYDER PETERS referred by Dr. Don Velazquez MD, with the diagnosis of SEVERE TENDONITIS RIGHT for a total of 10 visit(s). Discharge Date: 05/26/23 Please see the following information for a summary of their discharge status. Subjective Subjective: Doing well with hamstrings has new order for back Pain Right Buttocks: Pain Intensity (Out of 10): 0 Right Lower Extremity: Pain Intensity (Out of 10): 0 Bilateral Back: Pain Intensity (Out of 10): 4 Overall Improvement % Improvement: 90 Objective Objective/Function: Objective: POSTURE: mild posture PALPATION: SI/LS right > left side NEURO: c/o paresthesia/tingling , reflexes L3-4,L4-5,L5-S1 2/3 FLEXIBILITY: hamstring tightness mild ,piriformis min tight PROM HIP: flexion 110 degrees , IR 50 degrees ,ER 65 NO PAIN LUMBAR ROM: flexion mod loss pain ,extension min loss ,side glides min/mod loss Goals Goal 1:: Patient to be I with HEP for hamstring and back Goal Progress: Goal Met Goal 2:: Patient to demonstrate 50% to increase function and decrease pain Goal Progress: Progressing Goal 3:: Patient to improve peak force hamstring and hip strengthening by 5-10# to improve gait Goal Progress: Progressing Goal 4:: Patient to improve peak force hips and hamstrings by 5-10# to improve function and gait Goal Progress: Progressing Goal 5:: Patient to improve LEFS score by 5 points cristina improve QOL and function Goal Progress: Progressing Plan Plan: D/C D/C Information Discharge Comments: HEP d/c sentence: If there are questions or concerns regarding this patient's physical therapy, please feel free to call me at [phone]. Thank you for the referral of this patient. Sincerely, Inocente Javier, PT, Cert MDT, OCS Balance/Gait/Functional tests Balance/Special Test Scores Oswestry Low Back Score: 29 Lower Extremity Functional Score: 36 Improvement % Improvement: 90
--- NOTE | 2023-06-24 10:06 | HP.PTREVAL_ITS ---
Re-Evaluation Intro: Dr. Jaxson Velarde MD, It has been my pleasure to treat HAYDER PETERS over the last 10 visits for SEVERE TENDONITIS RIGHT. Please see the progress note below for an update on the physical therapy plan of care! Subjective Subjective: Doing well with hamstrings has new order for back Objective Objective/Function: Objective: POSTURE: mild posture PALPATION: SI/LS right > left side NEURO: c/o paresthesia/tingling , reflexes L3-4,L4-5,L5-S1 2/3 FLEXIBILITY: hamstring tightness mild ,piriformis min tight PROM HIP: flexion 110 degrees , IR 50 degrees ,ER 65 NO PAIN LUMBAR ROM: flexion mod loss pain ,extension min loss ,side glides min/mod loss Plan Plan Plan: D/C Balance/Gait/Functional tests Balance/Special Test Scores Oswestry Low Back Score: 28 Lower Extremity Functional Score: 36 Goals Goals Goal 1:: Patient to be I with HEP for hamstring and back Goal Time Frame: 4-6 Weeks Goal Progress: Goal Met Goal 2:: Patient to demonstrate 50% to increase function and decrease pain Goal Time Frame: 4-6 Weeks Goal Progress: Progressing Goal 3:: Patient to improve peak force hamstring and hip strengthening by 5-10# to improve gait Goal Time Frame: 4-6 Weeks Goal Progress: Progressing Goal 4:: Patient to improve peak force hips and hamstrings by 5-10# to improve function and gait Goal Time Frame: 4-6 Weeks Goal Progress: Progressing Goal 5:: Patient to improve LEFS score by 5 points cristina improve QOL and function Goal Time Frame: 4-6 Weeks Goal Progress: Progressing Anticipated Interventions Anticipated Interventions Patient/Client Instruction: Educate patient on: Condition and Plan of Care For the Purpose of:: To decrease pain, To increase ROM, To improve muscle performance and motor function, To improve ability to perform ADL's, To increase tolerance to activity/condition/position, To improve ability of physical actions for home/community/work/leisure, To improve gait and locomotor functions, To improve health of tissue, To decrease soft tissue restriction, To increase flexibility/ROM, To improve endurance and To reduce risk of recurrence Therapeutic Exercise to Include: Strength training, Postural training, Flexibilty training and Dynamic Lumbar Stabilization Comment: HIP/HAMSTRING STRENGTHENING For the Purpose of:: To decrease pain, To increase ROM, To improve muscle performance and motor function, To increase tolerance to activity/condition/position, To improve ability of physical actions for ho me/community/work/leisure, To improve gait and locomotor functions, To improve health of tissue, To decrease soft tissue restriction, To increase flexibility/ROM and To improve tolerance to ADL's IF ES: Yes Cryotherapy (ice pack, ice massage): Yes Thermo therapy (hot pack): Yes Ultrasound (thermal/non thermal): Yes For the Purpose of:: To decrease pain, To increase ROM, To improve nutrient delivery to tissue, To increase oxygenation perfusion, To improve health of tissue, To decrease soft tissue restriction and To increase flexibility/ROM Re-Evaluation Ending Re-evaluation ending: Please do not hesitate to contact me at [phone] by phone or if you have questions or concerns regarding this new plan of care! Sincerely, Inocente Javier, PT, Cert MDT, OCS
--- NOTE | 2023-08-27 11:34 | HP.PTRE(2) ---
Re-Evaluation Intro: Dr. Jaxson Velarde MD, It has been my pleasure to treat HAYDER PETERS over the last 26 visits for LUMBAR RADICULOAPTHY. Please see the progress note below for an update on the physical therapy plan of care! Subjective Subjective: Patient reports strength is worse working outside in yard. Pain lateral leg with paresthesia/tingling Patient has not started osteoporosis Objective Objective/Function/Assessment: * Patient will benefit from skilled PT due to complexity of issues ,with patient has not started osteoporosis medication and unable to have back surgery thus goals are and PT is appropriate* Objective: POSTURE: mild posture PALPATION: SI/LS right > left side GAIT: ambulates with reciprocal pattern NEURO: c/o paresthesia/tingling right lateral leg , reflexes L3-4,L4-5,L5-S1 2/3 FLEXIBILITY: hamstring tightness mild ,piriformis min tight PROM HIP: flexion 110 degrees , IR 50 degrees ,ER 65 NO PAIN LUMBAR ROM: flexion mod loss pain ,extension min loss ,side glides min/mod loss MMT: quads/hams 4/5 ( peak force ) hip flexion 23.1 Plan Plan Plan: CONTINUE POC PT INTERVENTIONS DLS ,HIP STRENGTHENING ,WB STRENGTHENING ,POSTURAL EX'S AND MODALTIES FOR PAIN Goals Goals Goal 1:: Patient to be I with HEP for spine Goal Time Frame: 4-6 Weeks Goal Progress: Progressing Goal 2:: Patient [id number]% improvement with less pain and improved function ( new goal) Goal Time Frame: 4-6 Weeks Goal Progress: Progressing Goal 3:: Patient to improve lumbar ROM for function of recovery to put on shoes and lift laundry basket Goal Time Frame: 4-6 Weeks Goal Progress: Progressing Goal 4:: Patient to improve back oswestry score by 5 points to improve QOL Goal Time Frame: 4-6 Weeks Goal Progress: Progressing Goal 5:: Patient to improve peak force hip by 5-10 # to improve gait and function gait. (new goal) Goal Progress: Progressing Anticipated Interventions Anticipated Interventions Patient/Client Instruction: Educate patient on: Condition and Plan of Care For the Purpose of:: To decrease pain, To increase ROM, To improve muscle performance and motor function, To improve ability to perform ADL's, To increase tolerance to activity/condition/position, To improve ability of physical actions for home/community/work/leisure, To improve health of tissue, To decrease soft tissue restriction, To increase flexibility/ROM and To improve tolerance to ADL's Therapeutic Exercise to Include: Strength training, Endurance training, Postural training, Flexibilty training and Dynamic Lumbar Stabilization For the Purpose of:: To decrease pain, To improve muscle performance and motor function, To improve ability to perform ADL's, To increase tolerance to activity/condition/position, To improve ability of physical actions for home/community/work/leisure, To improve health of tissue, To decrease soft tissue restriction, To increase flexibility/ROM, To reduce risk of recurrence and To improve tolerance to ADL's TENS: Yes IF ES: Yes Cryotherapy (ice pack, ice massage): Yes Thermo therapy (hot pack): Yes Ultrasound (thermal/non thermal): Yes For the Purpose of:: To decrease pain, To increase ROM, To improve nutrient delivery to tissue, To increase oxygenation perfusion, To improve health of tissue and To decrease soft tissue restriction Re-Evaluation Ending Re-evaluation ending: Please do not hesitate to contact me at [phone] by phone or if you have questions or concerns regarding this new plan of care! Sincerely, Inocente Javier, PT, Cert MDT, OCS
--- NOTE | 2023-09-28 10:57 | HP.PTREVAL_ITS ---
Re-Evaluation Intro: Dr. Jaxson Veladre MD, It has been my pleasure to treat HAYDER PETERS over the last 10 visits for SEVERE TENDONITIS RIGHT. Please see the progress note below for an update on the physical therapy plan of care! Subjective Subjective: Doing well with hamstrings has new order for back Objective Objective/Function: Objective: POSTURE: mild posture PALPATION: SI/LS right > left side NEURO: c/o paresthesia/tingling , reflexes L3-4,L4-5,L5-S1 2/3 FLEXIBILITY: hamstring tightness mild ,piriformis min tight PROM HIP: flexion 110 degrees , IR 50 degrees ,ER 65 NO PAIN LUMBAR ROM: flexion mod loss pain ,extension min loss ,side glides min/mod loss Plan Plan Plan: D/C Balance/Gait/Functional tests Balance/Special Test Scores Oswestry Low Back Score: 27 Lower Extremity Functional Score: 36 Goals Goals Goal 1:: Patient to be I with HEP for hamstring and back Goal Time Frame: 4-6 Weeks Goal Progress: Goal Met Goal 2:: Patient to demonstrate 50% to increase function and decrease pain Goal Time Frame: 4-6 Weeks Goal Progress: Progressing Goal 3:: Patient to improve peak force hamstring and hip strengthening by 5-10# to improve gait Goal Time Frame: 4-6 Weeks Goal Progress: Progressing Goal 4:: Patient to improve peak force hips and hamstrings by 5-10# to improve function and gait Goal Time Frame: 4-6 Weeks Goal Progress: Progressing Goal 5:: Patient to improve LEFS score by 5 points cristina improve QOL and function Goal Time Frame: 4-6 Weeks Goal Progress: Progressing Anticipated Interventions Anticipated Interventions Patient/Client Instruction: Educate patient on: Condition and Plan of Care For the Purpose of:: To decrease pain, To increase ROM, To improve muscle performance and motor function, To improve ability to perform ADL's, To increase tolerance to activity/condition/position, To improve ability of physical actions for home/community/work/leisure, To improve gait and locomotor functions, To improve health of tissue, To decrease soft tissue restriction, To increase flexibility/ROM, To improve endurance and To reduce risk of recurrence Therapeutic Exercise to Include: Strength training, Postural training, Flexibilty training and Dynamic Lumbar Stabilization Comment: HIP/HAMSTRING STRENGTHENING For the Purpose of:: To decrease pain, To increase ROM, To improve muscle performance and motor function, To increase tolerance to activity/condition/position, To improve ability of physical actions for ho me/community/work/leisure, To improve gait and locomotor functions, To improve health of tissue, To decrease soft tissue restriction, To increase flexibility/ROM and To improve tolerance to ADL's IF ES: Yes Cryotherapy (ice pack, ice massage): Yes Thermo therapy (hot pack): Yes Ultrasound (thermal/non thermal): Yes For the Purpose of:: To decrease pain, To increase ROM, To improve nutrient delivery to tissue, To increase oxygenation perfusion, To improve health of tissue, To decrease soft tissue restriction and To increase flexibility/ROM Re-Evaluation Ending Re-evaluation ending: Please do not hesitate to contact me at [phone] by phone or if you have questions or concerns regarding this new plan of care! Sincerely, Inocente Javier, PT, Cert MDT, OCS
== END 2023-09-28 19:00 | disposition home or self-care (01) ==
LOC: PT 10:00
PROVIDERS: PCP Family Medicine; Referring Provider Orthopaedic Surgery Orthopaedic Surgery of the Spine; Visit Provider Orthopaedic Surgery Orthopaedic Surgery of the Spine
DX: S76.311D Strain of muscle, fascia and tendon of the posterior muscle group at thigh level, right thigh, subsequent encounter (principal)
CPT/HCPCS: 97014; 97110; 97162; 97530; G0283

== ENCOUNTER 2023-10-28 10:00 | Outpatient (RCR) | payer MEDICARE, OTHER, SELFPAY ==
--- NOTE | 2023-10-28 11:04 | HP.PTDCSUM ---
Discharge Summary D/C summary: It has been my pleasure to treat HAYDER PETERS referred by Dr. Jaxson Velarde MD, with the diagnosis of Lumbar radiculopathy for a total of 42 visit(s). Discharge Date: 10/28/23 Please see the following information for a summary of their discharge status. Subjective Subjective: Doing well Overall Improvement % Improvement: 80 Objective Objective/Function: Objective: POSTURE: mild posture PALPATION: SI/LS right > left side NEURO: c/o paresthesia/tingling , reflexes L3-4,L4-5,L5-S1 2/3 FLEXIBILITY: hamstring tightness mild ,piriformis min tight PROM HIP: flexion 110 degrees , IR 50 degrees ,ER 65 NO PAIN LUMBAR ROM: flexion mod loss pain ,extension min loss ,side glides min/mod loss Goals Goal 1:: Patient to be I with HEP for hamstring and back Goal Time Frame: 4-6 Week Goal Progress: Goal Met Goal 2:: Patient to demonstrate 50% to increase function and decrease pain Goal Time Frame: 4-6 Weeks Goal Progress: Goal Met Goal 3:: Patient to improve peak force hamstring and hip strengthening by 5-10# to improve gait Goal Time Frame: 4-6 Weeks Goal Progress: Goal Met Goal 4:: Patient to improve peak force hips and hamstrings by 5-10# to improve function and gait Goal Time Frame: 4-6 Weeks Goal Progress: Goal Met Goal 5:: Patient to improve LEFS score by 5 points cristina improve QOL and function Goal Time Frame: 4-6 Weeks Goal Progress: Goal Met Plan Plan: D/C D/C Information Discharge Comments: HEP GYM d/c sentence: If there are questions or concerns regarding this patient's physical therapy, please feel free to call me at [phone]. Thank you for the referral of this patient. Sincerely, Inocente Javier, PT, Cert MDT, OCS Balance/Gait/Functional tests Balance/Special Test Scores Oswestry Low Back Score: 10 Improvement % Improvement: 80
== END 2023-10-28 19:00 | disposition home or self-care (01) ==
LOC: PT 10:00
PROVIDERS: PCP Family Medicine; Referring Provider Orthopaedic Surgery Orthopaedic Surgery of the Spine; Visit Provider Orthopaedic Surgery Orthopaedic Surgery of the Spine
DX: M54.16 Radiculopathy, lumbar region (principal); S76.311D Strain of muscle, fascia and tendon of the posterior muscle group at thigh level, right thigh, subsequent encounter
CPT/HCPCS: 97110; 97530

== ENCOUNTER → 2023-11-19 | Outpatient (CLI) | payer MEDICARE, OTHER, SELFPAY ==
--- NOTE | 2023-11-19 10:41 | CDU_ITS ---
Reason For Study: VISION LOSS; RIGHT EYE Rt. Velocities/BP Lt. Velocities/BP Prox CCA 86.4/17.1 cm/sec. Prox CCA 72.4/16.4 cm/sec. Mid CCA 83.1/18.2 cm/sec. Mid CCA 60.3/13.1 cm/sec. Dist CCA 61.1/12.7 cm/sec. Dist CCA 57.0/13.1 cm/sec. Prox ICA 62.2/14.9 cm/sec. Prox ICA 51.5/13.1 cm/sec. Mid ICA 60.0/13.8 cm/sec. Mid ICA 99.3/33.0 cm/sec. Dist ICA 69.39/20.4 cm/sec. Dist ICA 109.4/32.7 cm/sec. Rt. ICA/CCA = 69.9/83.1=0.8. Lt. ICA/CCA = 109.4/60.3=1.8. Prox ECA 72.1/12.7 cm/sec. Prox ECA 61.4/14.2 cm/sec. Rt. Vert. 28.4/9.2 cm/sec. Lt. Vert. 38.0/11.9 cm/sec. Right Extracranial There is intimal thickening but no significant atherosclerotic plaque noted in the right common carotid artery. There is homogeneous, smooth atherosclerotic plaque noted in the right internal carotid artery. There is no significant atherosclerotic plaque noted in the right external carotid artery. Antegrade flow is noted in the right vertebral artery. Left Extracranial There is intimal thickening but no significant atherosclerotic plaque noted in the left common carotid artery. There is homogeneous, smooth atherosclerotic plaque noted in the left internal carotid artery. There is intimal thickening but no significant atherosclerotic plaque noted in the left external carotid artery. Antegrade flow is noted in the left vertebral artery. Procedure Carotid Duplex 21855. This is a Carotid Duplex examination using B-mode, color flow and specral Doppler. Exam performed in department. VL/Carotid Duplex Ultrasound Interpretation Summary Mild (<50%) stenosis right extracranial internal carotid. Mild (<50%) stenosis left extracranial internal carotid. Patent and antegrade vertebrals bilaterally. Ordering Physician: Madelyn Ortiz Referring Physician: Nori Hope Performed By: Elis Boone, NAIF, RVT
== END | disposition home or self-care (01) ==
LOC: CVS 10:40
PROVIDERS: PCP Family Medicine; Referring Provider Physician Assistant Medical; Visit Provider Physician Assistant Medical
DX: H53.121 Transient visual loss, right eye (principal)
CPT/HCPCS: 93880

== ENCOUNTER → 2024-09-19 | Outpatient (CLI) | payer MEDICARE, OTHER, SELFPAY ==
--- NOTE | 2024-09-19 14:00 | BD_ITS ---
PROCEDURE: DEXA BONE DENSITY STUDY 09/19/2024 REASON FOR EXAM: OSTEOPOROSIS F, age 79 y/o . Postmenopausal. TECHNIQUE: DEXA BONE DENSITY STUDY COMPARISON: Prior study dated June 15, 2023. FINDINGS: BMD and T-SCORES Lumbar spine: 0.840 g/cm2, T-score -1.9 Levels: L1 through L4 Change from prior: Loss of 0.6%. Left femoral neck: 0.528 g/cm2, T-score -2.9 Femoral neck comparison data not recommended for monitoring change. Left total hip: 0.627 g/cm2, T-score -2.6 Change from prior: Loss of 1.9%. Right femoral neck: 0.458 g/cm2, T-score -3.4 Femoral neck comparison data not recommended for monitoring change. Right total hip: 0.570 g/cm2, T-score -3.0 Change from prior: Loss of 0.8%. The World Health Organization has defined the following categories based on bone density: Normal bone density: T-score equal to or greater than -1.0 Osteopenia: T-score between -1.0 and -2.5 Osteoporosis: T-score equal to or less than -2.5 The patient does meet the pharmacological treatment recommendations for prevention of osteoporosis. BD/Dexa Bone Density Study IMPRESSION: OSTEOPOROSIS. Recommend follow-up as clinically warranted. Reading Location: [id number]
== END | disposition home or self-care (01) ==
PROVIDERS: PCP Family Medicine; Referring Provider Orthopaedic Surgery Orthopaedic Surgery of the Spine; Visit Provider Orthopaedic Surgery Orthopaedic Surgery of the Spine
DX: M81.0 Age-related osteoporosis without current pathological fracture (principal)
CPT/HCPCS: 77080

== ENCOUNTER → 2024-09-22 | Outpatient (CLI) | payer MEDICARE, OTHER, SELFPAY ==
--- NOTE | 2024-09-22 13:19 | BI_ITS ---
EXAM: SCRN MAMM (CAD)W/ZHANE BILAT DATE: 09/22/2024 CLINICAL HISTORY: F, Age 79 y/o , SCREEN No family history. TECHNIQUE: SCRN MAMM (CAD)W/ZHANE BILAT COMPARISON: Prior exam(s) dated February 09, 2023.. FINDINGS: TISSUE DENSITY: The breasts are heterogeneously dense, which may obscure small masses. Bilateral Breast Mammographic Findings: No significant masses, calcifications or other abnormalities are identified. No suspicious masses, areas of developing architectural distortion, or suspicious calcifications. There has been no significant interval change. BI/SCRN MAMM (CAD)W/ZHANE BILAT IMPRESSION: Stable examination. OVERALL FINAL ASSESSMENT BI-RADS 1: NEGATIVE. RECOMMENDATION: Routine annual follow-up in 1 Year A letter with findings and recommendations will be mailed to the patient. Reading Location: [id number]
== END | disposition home or self-care (01) ==
LOC: OPBI 13:18
PROVIDERS: PCP Family Medicine; Referring Provider Family Medicine; Visit Provider Family Medicine
DX: Z12.31 Encounter for screening mammogram for malignant neoplasm of breast (principal)
CPT/HCPCS: 77063; 77067